=== PATIENT | female | born 1975 | race American Indian/Alaskan Native ===

== ENCOUNTER 2016-05-09 00:05 | Emergency (ER) | payer MEDICAID ==
[2016-05-09 01:09] VITALS: BP 110/74
== END 2016-05-09 02:42 | disposition left against medical advice (07) ==
LOC: ED 00:05
DX: J02.9 Acute pharyngitis, unspecified (principal); Z53.21 Procedure and treatment not carried out due to patient leaving prior to being seen by health care provider

== ENCOUNTER 2018-08-13 01:44 | Inpatient (IN) | payer SELFPAY ==
[2018-08-13 02:24] LABS: Hematocrit 33.4 % (30.3-42.9); Hemoglobin 10.9 gm/dl (10.1-14.3); Mean Corpuscular HGB Conc 33 % (30-34); Mean Corpuscular Volume 90 fl (79-97); Platelet Count 151 K/mm3 (140-440); Red Blood Count 3.71 M/mm3 (3.65-5.03)
[2018-08-13 02:43] LABS: BUN/Creatinine Ratio 17; Blood Urea Nitrogen 10 mg/dL (7-17); Calcium 8.8 mg/dL (8.4-10.2); Hemolysis Index 6
[2018-08-13 03:17] LABS: Bacteria,Urine 1+ /HPF (Negative); Bilirubin,Urine NEG (Negative); Blood,Urine NEG (Negative); Color,Urine Amber (Yellow); Mucus,Urine FEW /HPF
[2018-08-13 03:23] LABS: Amphetamine Screen,Urine PRESUMPTIVE NEGATIVE; Benzodiazepines Screen,Urine PRESUMPTIVE NEGATIVE; Cannabinoid Screen,Urine PRESUMPTIVE NEGATIVE; Methadone Screen,Urine PRESUMPTIVE NEGATIVE; Opiate Screen,Urine PRESUMPTIVE NEGATIVE
[2018-08-13 03:35] LABS: Cocaine Screen,Urine PRESUMPTIVE POSITIVE
[2018-08-13 04:05] LABS: Anisocytosis 1+; Basophils % (Manual) 0 % (0.0-1.8); Hypochromasia 1+; Total Cells Counted 100
--- NOTE | 2018-08-13 04:46 | Emergency Department Report ---
ED Psych HPI - General Chief Complaint: Psych Stated Complaint: MH Time Seen by Provider: 08/13/18 02:08 Source: patient, EMS Mode of arrival: Stretcher - History of Present Illness Initial Comments: Patient is a 42-year-old [place]an female was found at a gas station exhibiting d elusions. Patient was yelling that she just had a miscarriage although the patient did not show any evidence of being . Patient was brought here for evaluation. Patient states to me very disorganized fashion that she was with someone trying to get a ride and transportation. She states the "car would not crank". Patient states that she had a miscarriage earlier today and she also has a 3-month-old at home. Patient does not appear to have had any recent pregnancies. - Related Data Previous Rx's Medication Instructions Recorded Last Taken Type Doxycycline [Vibramycin CAP] 100 mg PO Q12HR #14 capsule 03/31/18 Unknown Rx Ibuprofen [Motrin] 600 mg PO Q8H PRN #20 tablet 03/31/18 Unknown Rx Terbinafine (Nf) [LamiSIL] 250 mg PO QDAY 90 Days tablet 03/31/18 Unknown Rx Allergies Allergy/AdvReac Type Severity Reaction Status Date / Time No Known Allergies Allergy Verified 10/25/15 16:36 ED Review of Systems ROS: Stated complaint: MH Other details as noted in HPI Comment: All other systems reviewed and negative ED Past Medical Hx - Past Medical History Previous Medical History?: Yes Hx Psychiatric Treatment: Yes (Bipolar,schizophrenia,depression) Hx HIV: Yes (on anti-virals) - Surgical History Past Surgical History?: Yes Additional Surgical History: x3. surgery for dislocated shoulder - Social History Smoking Status: Never Smoker - Medications Home Medications: Home Medications Medication Instructions Recorded Confirmed Last Taken Type Doxycycline [Vibramycin CAP] 100 mg PO Q12HR #14 capsule 03/31/18 08/13/18 Unknown Rx Ibuprofen [Motrin] 600 mg PO Q8H PRN #20 tablet 03/31/18 08/13/18 Unknown Rx Terbinafine (Nf) [LamiSIL] 250 mg PO QDAY 90 Days tablet 03/31/18 08/13/18 Unknown Rx ED Physical Exam - General Limitations: Altered Mental Status General appearance: alert, in no apparent distress - Head Head exam: Present: atraumatic, normocephalic - Eye Eye exam: Present: normal appearance, PERRL, EOMI - ENT ENT exam: Present: mucous membranes moist - Neck Neck exam: Present: normal inspection - Respiratory Respiratory exam: Present: normal lung sounds bilaterally, wheezes, rales, rhonchi. Absent: respiratory distress - Cardiovascular Cardiovascular Exam: Present: regular rate, normal rhythm. Absent: systolic murmur, diastolic murmur, rubs, gallop - GI/Abdominal GI/Abdominal exam: Present: soft, normal bowel sounds. Absent: distended, tenderness, guarding, rebound - Extremities Exam Extremities exam: Present: normal inspection - Back Exam Back exam: Present: normal inspection - Neurological Exam Neurological exam: Present: alert, altered - Psychiatric Psychiatric exam: Present: normal affect, normal mood - Skin Skin exam: Present: warm, dry, intact, normal color. Absent: rash ED Course Vital Signs 08/13/18 01:47 Temperature 97.6 F Pulse Rate 86 Respiratory 20 Rate Blood Pressure 118/83 O2 Sat by Pulse 100 Oximetry ED Medical Decision Making - Lab Data Result diagrams: 08/13/18 02:08 08/13/18 02:08 Lab Results 08/13/18 08/13/18 08/13/18 Range/Units 02:08 02:08 02:08 WBC (4.5-11.0) K/mm3 RBC (3.65-5.03) M/mm3 Hgb (10.1-14.3) gm/dl Hct (30.3-42.9) % MCV (79-97) fl MCH (28-32) pg MCHC (30-34) % RDW (13.2-15.2) % Plt Count (140-440) K/mm3 [place] % (Auto) Add Manual Diff Total Counted Seg Neuts % (Manual) (40.0-70.0) % Band Neutrophils % % Lymphocytes % (Manual) (13.4-35.0) % Reactive Lymphs % (Man) % Monocytes % (Manual) (0.0-7.3) % Eosinophils % (Manual) (0.0-4.3) % Basophils % (Manual) (0.0-1.8) % Metamyelocytes % % Myelocytes % % Promyelocytes % % Blast Cells % % Nucleated RBC % Seg Neutrophils # Man (1.8-7.7) K/mm3 Band Neutrophils # K/mm3 Lymphocytes # (Manual) (1.2-5.4) K/mm3 Abs React Lymphs (Man) K/mm3 Monocytes # (Manual) (0.0-0.8) K/mm3 Eosinophils # (Manual) (0.0-0.4) K/mm3 Basophils # (Manual) (0.0-0.1) K/mm3 Metamyelocytes # K/mm3 Myelocytes # K/mm3 Promyelocytes # K/mm3 Blast Cells # K/mm3 WBC Morphology Hypersegmented Neuts Hyposegmented Neuts Hypogranular Neuts Smudge Cells Toxic Granulation Toxic Vacuolation Dohle Bodies Pelger-Huet Anomaly Brenden Rods Platelet Estimate Clumped Platelets Plt Clumps, EDTA Large Platelets Giant Platelets Platelet Satelliting Plt Morphology Comment RBC Morphology Dimorphic RBCs Polychromasia Hypochromasia Poikilocytosis Anisocytosis Microcytosis Macrocytosis Spherocytes Pappenheimer Bodies Sickle Cells Target Cells Tear Drop Cells Ovalocytes Helmet Cells Griffin-Java Bodies [place] Rings [place] Cells Bite Cells Crenated Cell Elliptocytes Acanthocytes (Spur) Rouleaux Hemoglobin C Crystals Schistocytes Malaria parasites Prashant Bodies Hem Pathologist Commnt Sodium 145 (137-145) mmol/L Potassium 3.5 L (3.6-5.0) mmol/L Chloride 109.6 H (98-107) mmol/L Carbon Dioxide 23 (22-30) mmol/L Anion Gap 16 mmol/L BUN 10 (7-17) mg/dL Creatinine 0.6 L (0.7-1.2) mg/dL Estimated GFR > 60 ml/min BUN/Creatinine Ratio 17 % Glucose 78 (65-100) mg/dL Calcium 8.8 (8.4-10.2) mg/dL HCG, Qual (Negative) Urine Color (Yellow) Urine Turbidity (Clear) Urine pH (5.0-7.0) Ur Specific [place] (1.003-1.030) Urine Protein (Negative) mg/dL Urine Glucose (UA) (Negative) mg/dL Urine Ketones (Negative) mg/dL Urine Blood (Negative) Urine Nitrite (Negative) Urine Bilirubin (Negative) Urine Urobilinogen (<2.0) mg/dL Ur Leukocyte Esterase (Negative) Urine WBC (Auto) (0.0-6.0) /HPF Urine RBC (Auto) (0.0-6.0) /HPF U Epithel Cells (Auto) (0-13.0) /HPF Urine Bacteria (Auto) (Negative) /HPF Urine Mucus /HPF Salicylates < 0.3 L (2.8-20.0) mg/dL Urine Opiates Screen Urine Methadone Screen Acetaminophen < 5.0 L (10.0-30.0) ug/mL Ur Barbiturates Screen Ur Phencyclidine Scrn Ur Amphetamines Screen U Benzodiazepines Scrn Urine Cocaine Screen U Marijuana (THC) Screen Drugs of Abuse Note Plasma/Serum Alcohol (0-0.07) % 08/13/18 08/13/18 08/13/18 Range/Units 02:08 02:08 03:00 WBC 2.0 L (4.5-11.0) K/mm3 RBC 3.71 (3.65-5.03) M/mm3 Hgb 10.9 (10.1-14.3) gm/dl Hct 33.4 (30.3-42.9) % MCV 90 (79-97) fl MCH 30 (28-32) pg MCHC 33 (30-34) % RDW 16.0 H (13.2-15.2) % Plt Count 151 (140-440) K/mm3 [place] % (Auto) [employer] Add Manual Diff Complete Total Counted 100 Seg Neuts % (Manual) 63.0 (40.0-70.0) % Band Neutrophils % 1.0 % Lymphocytes % (Manual) 24.0 (13.4-35.0) % Reactive Lymphs % (Man) 0 % Monocytes % (Manual) 9.0 H (0.0-7.3) % Eosinophils % (Manual) 3.0 (0.0-4.3) % Basophils % (Manual) 0 (0.0-1.8) % Metamyelocytes % 0 % Myelocytes % 0 % Promyelocytes % 0 % Blast Cells % 0 % Nucleated RBC % Not Reportable Seg Neutrophils # Man 1.3 L (1.8-7.7) K/mm3 Band Neutrophils # 0.0 K/mm3 Lymphocytes # (Manual) 0.5 L (1.2-5.4) K/mm3 Abs React Lymphs (Man) 0.0 K/mm3 Monocytes # (Manual) 0.2 (0.0-0.8) K/mm3 Eosinophils # (Manual) 0.1 (0.0-0.4) K/mm3 Basophils # (Manual) 0.0 (0.0-0.1) K/mm3 Metamyelocytes # 0.0 K/mm3 Myelocytes # 0.0 K/mm3 Promyelocytes # 0.0 K/mm3 Blast Cells # 0.0 K/mm3 WBC Morphology Not Reportable Hypersegmented Neuts Not Reportable Hyposegmented Neuts Not Reportable Hypogranular Neuts Not Reportable Smudge Cells Not Reportable Toxic Granulation Not Reportable Toxic Vacuolation Not Reportable Dohle Bodies Not Reportable Pelger-Huet Anomaly Not Reportable Brenden Rods Not Reportable Platelet Estimate Appears normal Clumped Platelets Not Reportable Plt Clumps, EDTA Not Reportable Large Platelets Not Reportable Giant Platelets Not Reportable Platelet Satelliting Not Reportable Plt Morphology Comment Not Reportable RBC Morphology Not Reportable Dimorphic RBCs Not Reportable Polychromasia Not Reportable Hypochromasia 1+ Poikilocytosis Not Reportable Anisocytosis 1+ Microcytosis Not Reportable Macrocytosis Not Reportable Spherocytes Not Reportable Pappenheimer Bodies Not Reportable Sickle Cells Not Reportable Target Cells Not Reportable Tear Drop Cells Not Reportable Ovalocytes Not Reportable Helmet Cells Not Reportable Griffin-Java Bodies Not Reportable [place] Rings Not Reportable Jared Cells Not Reportable Bite Cells Not Reportable Crenated Cell Not Reportable Elliptocytes Not Reportable Acanthocytes (Spur) Not Reportable Rouleaux Not Reportable Hemoglobin C Crystals Not Reportable Schistocytes Not Reportable Malaria parasites Not Reportable Prashant Bodies Not Reportable Hem Pathologist Commnt No Sodium (137-145) mmol/L Potassium (3.6-5.0) mmol/L Chloride (98-107) mmol/L Carbon Dioxide (22-30) mmol/L Anion Gap mmol/L BUN (7-17) mg/dL Creatinine (0.7-1.2) mg/dL Estimated GFR ml/min BUN/Creatinine Ratio % Glucose (65-100) mg/dL Calcium (8.4-10.2) mg/dL HCG, Qual (Negative) Urine Color [place] (Yellow) Urine Turbidity Clear (Clear) Urine pH 5.0 (5.0-7.0) Ur Specific [place] 1.039 H (1.003-1.030) Urine Protein 100 mg/dl (Negative) mg/dL Urine Glucose (UA) Neg (Negative) mg/dL Urine Ketones Neg (Negative) mg/dL Urine Blood Neg (Negative) Urine Nitrite Neg (Negative) Urine Bilirubin Neg (Negative) Urine Urobilinogen 4.0 (<2.0) mg/dL Ur Leukocyte Esterase Tr (Negative) Urine WBC (Auto) 9.0 H (0.0-6.0) /HPF Urine RBC (Auto) 7.0 (0.0-6.0) /HPF U Epithel Cells (Auto) 20.0 H (0-13.0) /HPF Urine Bacteria (Auto) 1+ (Negative) /HPF Urine Mucus Few /HPF Salicylates (2.8-20.0) mg/dL Urine Opiates Screen Urine Methadone Screen Acetaminophen (10.0-30.0) ug/mL Ur Barbiturates Screen Ur Phencyclidine Scrn Ur Amphetamines Screen U Benzodiazepines Scrn Urine Cocaine Screen U Marijuana (THC) Screen Drugs of Abuse Note Plasma/Serum Alcohol < 0.01 (0-0.07) % 08/13/18 08/13/18 Range/Units 03:00 04:21 WBC (4.5-11.0) K/mm3 RBC (3.65-5.03) M/mm3 Hgb (10.1-14.3) gm/dl Hct (30.3-42.9) % MCV (79-97) fl MCH (28-32) pg MCHC (30-34) % RDW (13.2-15.2) % Plt Count (140-440) K/mm3 [place] % (Auto) Add Manual Diff Total Counted Seg Neuts % (Manual) (40.0-70.0) % Band Neutrophils % % Lymphocytes % (Manual) (13.4-35.0) % Reactive Lymphs % (Man) % Monocytes % (Manual) (0.0-7.3) % Eosinophils % (Manual) (0.0-4.3) % Basophils % (Manual) (0.0-1.8) % Metamyelocytes % % Myelocytes % % Promyelocytes % % Blast Cells % % Nucleated RBC % Seg Neutrophils # Man (1.8-7.7) K/mm3 Band Neutrophils # K/mm3 Lymphocytes # (Manual) (1.2-5.4) K/mm3 Abs React Lymphs (Man) K/mm3 Monocytes # (Manual) (0.0-0.8) K/mm3 Eosinophils # (Manual) (0.0-0.4) K/mm3 Basophils # (Manual) (0.0-0.1) K/mm3 Metamyelocytes # K/mm3 Myelocytes # K/mm3 Promyelocytes # K/mm3 Blast Cells # K/mm3 WBC Morphology Hypersegmented Neuts Hyposegmented Neuts Hypogranular Neuts Smudge Cells Toxic Granulation Toxic Vacuolation Dohle Bodies Pelger-Huet Anomaly Brenden Rods Platelet Estimate Clumped Platelets Plt Clumps, EDTA Large Platelets Giant Platelets Platelet Satelliting Plt Morphology Comment RBC Morphology Dimorphic RBCs Polychromasia Hypochromasia Poikilocytosis Anisocytosis Microcytosis Macrocytosis Spherocytes Pappenheimer Bodies Sickle Cells Target Cells Tear Drop Cells Ovalocytes Helmet Cells Griffin-Java Bodies [place] Rings Jared Cells Bite Cells Crenated Cell Elliptocytes Acanthocytes (Spur) Rouleaux Hemoglobin C Crystals Schistocytes Malaria parasites Prashant Bodies Hem Pathologist Commnt Sodium (137-145) mmol/L Potassium (3.6-5.0) mmol/L Chloride (98-107) mmol/L Carbon Dioxide (22-30) mmol/L Anion Gap mmol/L BUN (7-17) mg/dL Creatinine (0.7-1.2) mg/dL Estimated GFR ml/min BUN/Creatinine Ratio % Glucose (65-100) mg/dL Calcium (8.4-10.2) mg/dL HCG, Qual Negative (Negative) Urine Color (Yellow) Urine Turbidity (Clear) Urine pH (5.0-7.0) Ur Specific [place] (1.003-1.030) Urine Protein (Negative) mg/dL Urine Glucose (UA) (Negative) mg/dL Urine Ketones (Negative) mg/dL Urine Blood (Negative) Urine Nitrite (Negative) Urine Bilirubin (Negative) Urine Urobilinogen (<2.0) mg/dL Ur Leukocyte Esterase (Negative) Urine WBC (Auto) (0.0-6.0) /HPF Urine RBC (Auto) (0.0-6.0) /HPF U Epithel Cells (Auto) (0-13.0) /HPF Urine Bacteria (Auto) (Negative) /HPF Urine Mucus /HPF Salicylates (2.8-20.0) mg/dL Urine Opiates Screen Presumptive negative Urine Methadone Screen Presumptive negative Acetaminophen (10.0-30.0) ug/mL Ur Barbiturates Screen Presumptive negative Ur Phencyclidine Scrn Presumptive negative Ur Amphetamines Screen Presumptive negative U Benzodiazepines Scrn Presumptive negative Urine Cocaine Screen Presumptive positive U Marijuana (THC) Screen Presumptive negative Drugs of Abuse Note Disclamer Plasma/Serum Alcohol (0-0.07) % - Medical Decision Making Patient's test was negative which rules out her having a miscarriage today. Patient would've had elevation of her beta hCG. Patient is cocaine positive exhibiting delusions. Patient's be evaluated by mental health and will explore options to get her evaluated by a psychiatrist. Critical care attestation.: If time is entered above; I have spent that time in minutes in the direct care of this critically ill patient, excluding procedure time. ED Disposition Clinical Impression: Encounter for psychiatric assessment, Cocaine abuse, Acute psychosis Disposition: [id number]/TX-65 PSY HOSP/PSY UNIT Is pt being admited?: No Does the pt Need Aspirin: No Condition: Stable Time of Disposition: 04:51
[2018-08-13] MEDS ORDERED: K-DUR PO ONE (08:12)
[2018-08-13 08:32] LABS: Hematocrit 31.6 % (30.3-42.9); Hemoglobin 10.4 gm/dl (10.1-14.3); Mean Corpuscular HGB Conc 33 % (30-34); Mean Corpuscular Volume 90 fl (79-97); Platelet Count 145 K/mm3 (140-440); Red Cell Distribution Width 16.1 % (13.2-15.2)
[2018-08-13 08:37] LABS: Eosinophils % (Auto) 0.3 % (0.0-4.3); Monocytes # (Auto) 0.3 K/mm3 (0.0-0.8)
[2018-08-13 08:44] LABS: INR 0.85 (0.87-1.13)
--- NOTE | 2018-08-13 08:53 | Cat Scan Report ---
CT HEAD WITHOUT CONTRAST INDICATION: Altered mental status. COMPARISON: None similar. FINDINGS: Noncontrast head CT demonstrates symmetric, though mild diffuse ventricular enlargement. [id number] periventricular white matter hypodensities also noted, extending into the centrum semiovale. Symmetric, grossly unremarkable sulci. No definite acute infarct, hemorrhage, mass effect or midline shift, to the extent assessed. Normal posterior fossa with preserved basilar cisterns. Normal imaged eye globes. Clear paranasal sinuses and mastoid air cells. Normal calvarium and scalp. CONCLUSION: Mild to moderate symmetric ventricular enlargement and white matter hypodensities, abnormal for the patient's age. Though exact etiology unknown, differential considerations include primarily central atrophy versus an underlying component of hydrocephalus/NPH. Please correlate. Thank you for the opportunity to participate in this patient's care.
[2018-08-13 09:48] LABS: Creatine Kinase MB 4.3 ng/mL (0.0-4.0)
[2018-08-13 09:49] LABS: Alanine Aminotransferase 37 units/L (7-56); Albumin 3.2 g/dL (3.9-5)
[2018-08-13 09:55] LABS: Bilirubin,Direct < 0.2 mg/dL (0-0.2)
--- NOTE | 2018-08-13 10:28 | Emergency Department Report ---
Blank Doc - Documentation Documentation: 22-year-old female with history of HIV AIDS. She was brought to my attention oddly enough for a potassium of 3.5. I reviewed the patient's overall labs and clinical report. It appeared to me that she required more workup considering her medical history and the fact that she had a leukocyte count of 2.0. Therefore I ordered more expanded lab tests. In addition with the patient's alteration of consciousness and HIV, I ordered a CT of her head. Laboratory studies were remarkable for a dropping neutrophil count now with an ANC in the 700s and a total count of 1.5. She has a transaminases level of a hydrated and a magnesium of 1.5. Her CT shows white matter hypodensities and large ventricles. This opens a much wider differential diagnosis this. I spoke to the hospitalist doctor Ana Paula. She agreed that the patient will now require a much more extensive workup. I am in agreement. I will defer this to the hospitalist staff who will be admitting the patient. Diagnostic impressions: HIV/AIDS Alteration of consciousness Psychosis v Acute encephalopathy Hypomagnesemia Elevated transaminases Plan: Further workup and care per hospitalist staff. I am available should they require or request any emergency procedure or assistance.
[2018-08-13] MEDS ORDERED: SODIUM CHLORIDE FLUSH SYRINGE 10 ML IV PRN (11:12)
[2018-08-13] MEDS ORDERED: IBUPROFEN PO PRN (11:12)
[2018-08-13] MEDS ORDERED: MORPHINE IV PRN (11:12)
[2018-08-13] MEDS ORDERED: TYLENOL PO PRN (11:12)
[2018-08-13] MEDS ORDERED: ZOFRAN IV PRN (11:12)
[2018-08-13 11:19] LABS: Basophils % (Manual) 0 % (0.0-1.8); Eosinophils % (Manual) 0 % (0.0-4.3); Total Cells Counted 50
[2018-08-13 11:20] LABS: Anisocytosis 1+; Platelet Estimate Consistent w Auto; Poikilocytosis 1+; Tear Drop Cells Few
[2018-08-13] MEDS ORDERED: ATIVAN IV NR (11:30)
[2018-08-13] MEDS: LOVENOX SUB-Q SCH (12:28)
[2018-08-13] MEDS ORDERED: MAGNESIUM SULFATE 4GM/100ML 4 GM/100 ML BAG IV ONE (12:30)
[2018-08-13] MEDS ORDERED: LOVENOX SUB-Q ONE (12:37)
--- NOTE | 2018-08-13 12:43 | Progress Note ---
Subjective - Reason for Consult Consult date: 08/13/18 Reason for consult: Initial Psychiatric Evaluation Mental Status Exam - Vital signs Last Vital Signs Temp 97.5 F L 08/13/18 08:19 Pulse 100 H 08/13/18 08:19 Resp 18 08/13/18 08:19 BP 108/66 08/13/18 08:19 Pulse Ox 98 08/13/18 08:19
--- NOTE | 2018-08-13 13:31 | Consultation ---
History of Present Illness - Reason for Consult Consult date: 08/13/18 Reason for consult: Initial Psychiatric Evaluation - Chief Complaint Chief complaint: " My right side was hurting" - History of Present Psychiatric Illness Patient is a 42-year-old [place] female was found at a gas station exhibiting delusions. Patient was yelling that she just had a miscarriage although the patient did not show any evidence of being . Patient was brought here for evaluation. Per record patient has a past medical history of HIV. Leukocyte count of 2.0. Laboratory studies were remarkable for a dropping neutrophil count now with an ANC in the 700s and a magnesium of 1.5. Patient has a PPHx of schizophrenia. She states, " I'm here because the right side of my body was aching." Today the patient is cooperative but anxious during the assessment. Although patient denies psychosis, she appears to be internally preoccupied. When asked was she , patient denies. She reports appropriate appetite, energy, and sleep. She denies SI/HI's, A/VH's, and delusions. She later reports " she is in here trying to kill my baby. I'm . They're going to kill you when you leave." Paranoid delusions noted. Current Psychiatric Medications: " I don't know." Past Psychiatric History: schizophrenia ( age 17); multiple inpatient psychiatric evaluation; no outpatient psychiatrist; no suicide attempts per pt. Past Psychiatric Medication Trials: Seroquel- " it worked" and Prozac " it worked". " That's it ma'am." History of Drug/Alcohol Abuse: " I abuse everything." " I last used drugs 2 days ago- crack, liquor, and beer." UDS cocaine. History of Abuse/Trauma: Patient denies sexual, physical, and mental abuse. Social History: Some college-highest level of education; lives with mother in [facility]; no pending legal issues; no source of income; " good" support system (mother, father, grandmother, brother, and children). Family History of psychiatric illness and substance abuse: Patient denies. Medications and Allergies Allergies Allergy/AdvReac Type Severity Reaction Status Date / Time No Known Allergies Allergy Verified 10/25/15 16:36 Home Medications Medication Instructions Recorded Confirmed Last Taken Type Doxycycline [Vibramycin CAP] 100 mg PO Q12HR #14 capsule 03/31/18 08/13/18 Unknown Rx Ibuprofen [Motrin] 600 mg PO Q8H PRN #20 tablet 03/31/18 08/13/18 Unknown Rx Terbinafine (Nf) [LamiSIL] 250 mg PO QDAY 90 Days tablet 03/31/18 08/13/18 Unknown Rx Active Meds: Active Medications Acetaminophen (Tylenol) 650 mg PO Q4H PRN PRN Reason: Pain MILD(1-3)/Fever >100.5/CORRAL Docusate Sodium (Colace) 100 mg PO BID ANISA Enoxaparin Sodium (Lovenox) 40 mg SUB-Q QDAY ANISA Stop: 08/14/18 10:01 Last Admin: 08/13/18 12:28 Dose: 40 mg Documented by: Magnesium Sulfate (Magnesium Sulfate 4gm/100ml) 4 gm in 100 mls @ 25 mls/hr IV ONCE ONE Stop: 08/13/18 16:29 Ibuprofen (Motrin) 600 mg PO Q6H PRN PRN Reason: Pain, Mild (1-3) Lorazepam (Ativan) 2 mg IV CARPENTER MOLD NR Stop: 08/13/18 23:59 Morphine Sulfate (Morphine) 2 mg IV Q4H PRN PRN Reason: Pain, Moderate (4-6) Stop: 08/14/18 23:59 Ondansetron HCl (Zofran) 4 mg IV Q8H PRN PRN Reason: Nausea And Vomiting Sodium Chloride (Sodium Chloride Flush Syringe 10 Ml) 10 ml IV BID [facility] Sodium Chloride (Sodium Chloride Flush Syringe 10 Ml) 10 ml IV PRN PRN PRN Reason: LINE FLUSH Mental Status Exam - Vital signs Last Vital Signs Temp 97.5 F L 08/13/18 08:19 Pulse 100 H 08/13/18 08:19 Resp 18 08/13/18 08:19 BP 108/66 08/13/18 08:19 Pulse Ox 98 08/13/18 08:19 - Exam Narrative exam: Mental Status Exam Appearance: in hospital scrubs, poorly groomed Behavior: poor eye contact Speech: rapid rate and regular tone Mood: "I'm content " ; anxious/labile Affect: congruent to mood Thought Process: disorganized, loose associations, impoverished Thought Content: Denies SI/HI's, A/VH's, and delusions; + internally preoccupied, paranoid. Motor Activity: laying in bed. Cognition: A/O x 3 Insight: poor Judgment: poor Results Result Diagrams: 08/13/18 08:18 08/13/18 02:08 Abnormal lab results 08/13/18 08/13/18 08/13/18 Range/Units 02:08 02:08 02:08 WBC (4.5-11.0) K/mm3 RBC (3.65-5.03) M/mm3 RDW (13.2-15.2) % Monocytes % (Manual) (0.0-7.3) % Seg Neutrophils # (1.8-7.7) K/mm3 Seg Neutrophils # Man (1.8-7.7) K/mm3 Lymphocytes # (Manual) (1.2-5.4) K/mm3 PT (12.2-14.9) Sec. INR (0.87-1.13) Potassium 3.5 L (3.6-5.0) mmol/L Chloride 109.6 H (98-107) mmol/L Creatinine 0.6 L (0.7-1.2) mg/dL Lactic Acid (0.7-2.0) mmol/L Magnesium (1.7-2.3) mg/dL AST (5-40) units/L Alkaline Phosphatase (35-129) units/L CK-MB (CK-2) (0.0-4.0) ng/mL CK-MB (CK-2) Rel Index (0-4) Albumin (3.9-5) g/dL Ur Specific [place] (1.003-1.030) Urine WBC (Auto) (0.0-6.0) /HPF U Epithel Cells (Auto) (0-13.0) /HPF Salicylates < 0.3 L (2.8-20.0) mg/dL Acetaminophen < 5.0 L (10.0-30.0) ug/mL 08/13/18 08/13/18 08/13/18 Range/Units 02:08 03:00 08:18 WBC 2.0 L (4.5-11.0) K/mm3 RBC (3.65-5.03) M/mm3 RDW 16.0 H (13.2-15.2) % Monocytes % (Manual) 9.0 H (0.0-7.3) % Seg Neutrophils # (1.8-7.7) K/mm3 Seg Neutrophils # Man 1.3 L (1.8-7.7) K/mm3 Lymphocytes # (Manual) 0.5 L (1.2-5.4) K/mm3 PT 12.1 L (12.2-14.9) Sec. INR 0.85 L (0.87-1.13) Potassium (3.6-5.0) mmol/L Chloride (98-107) mmol/L Creatinine (0.7-1.2) mg/dL Lactic Acid (0.7-2.0) mmol/L Magnesium (1.7-2.3) mg/dL AST (5-40) units/L Alkaline Phosphatase (35-129) units/L CK-MB (CK-2) (0.0-4.0) ng/mL CK-MB (CK-2) Rel Index (0-4) Albumin (3.9-5) g/dL Ur Specific [place] 1.039 H (1.003-1.030) Urine WBC (Auto) 9.0 H (0.0-6.0) /HPF U Epithel Cells (Auto) 20.0 H (0-13.0) /HPF Salicylates (2.8-20.0) mg/dL Acetaminophen (10.0-30.0) ug/mL 08/13/18 08/13/18 08/13/18 Range/Units 08:18 08:18 08:18 WBC 1.5 L* (4.5-11.0) K/mm3 RBC 3.50 L (3.65-5.03) M/mm3 RDW 16.1 H (13.2-15.2) % Monocytes % (Manual) 12.0 H (0.0-7.3) % Seg Neutrophils # 0.7 L (1.8-7.7) K/mm3 Seg Neutrophils # Man 1.1 L (1.8-7.7) K/mm3 Lymphocytes # (Manual) 0.3 L (1.2-5.4) K/mm3 PT (12.2-14.9) Sec. INR (0.87-1.13) Potassium (3.6-5.0) mmol/L Chloride (98-107) mmol/L Creatinine (0.7-1.2) mg/dL Lactic Acid 0.60 L (0.7-2.0) mmol/L Magnesium 1.50 L (1.7-2.3) mg/dL AST 101 H (5-40) units/L Alkaline Phosphatase 139 H (35-129) units/L CK-MB (CK-2) 4.3 H (0.0-4.0) ng/mL CK-MB (CK-2) Rel Index 4.8 H (0-4) Albumin 3.2 L (3.9-5) g/dL Ur Specific [place] (1.003-1.030) Urine WBC (Auto) (0.0-6.0) /HPF U Epithel Cells (Auto) (0-13.0) /HPF Salicylates (2.8-20.0) mg/dL Acetaminophen (10.0-30.0) ug/mL All other labs normal. Assessment and Plan Assessment and plan: Impression: PPHx schizophrenia. Psychosis Unspecified. Today the patient is cooperative but anxious during the assessment. Patient mood is labile with perceptual disturbances and paranoid delusions. Thought process is disorganized. UDS is positive for cocaine. Recommendation/Plan: 1. Continue 1013. Will reassess in 24 hours. 2. Start Seroquel 50mg po QHS mood/psychosis. Discussed metabolic side effects. Patient verbalizes understanding. 3. Will attempt to gain collateral. Disposition: Will refer patient to inpatient psychiatric services once patient is medically cleared. Will staff with Dr. Natty Menjivar.
--- NOTE | 2018-08-13 14:08 | Magnetic Resonance Report ---
MRI BRAIN WITHOUT CONTRAST: 08/13/18 11:13:00 CLINICAL: Altered mental status. TECHNIQUE: Axial diffusion, T1, T2, gradient echo T2*, coronal and axial FLAIR and sagittal T1 sequences on a 1.5 Evelyn magnet. FINDINGS: The ventricles and sulci are diffusely large for age but the ventricular enlargement is disproportionate compared to the sulcal enlargement. No restricted diffusion. Extensive bilateral periventricular deep white matter hyperintensity on FLAIR and T2. No mass or mass effect. No hemorrhage, edema or extra-axial collection. No chronic microbleeds and gradient echo sequence. Normal pituitary and optic chiasm. The brainstem is small. Normal cerebellum . Intact vascular flow voids. Normal sinuses. The orbits, and soft tissues are normal. Normal calvarium and skull base. IMPRESSION: Global cortical atrophy and disproportionate ventriculomegaly suggesting normal pressure hydrocephalus. Extensive chronic white matter disease of uncertain etiology. No evidence of acute/subacute infarct or hemorrhage.
--- NOTE | 2018-08-13 14:29 | Consultation ---
History of Present Illness - Reason for Consult Consult date: 08/13/18 - History of Present Illness 22 y/o female with history of HIV AIDS In the ED, temp 99.1, HR 81, R 19, O2 sat 98%, BP 139/61. WBC 6.9, Hg 9.3, Plat 111. Creat 5.1. Glucose 70. LFTs normal. CK 233. Lactate 1.6. UA 20 wbc, trace LE. Blood culture 06/27/2018 no growth today. Urine culture 06/27/2018 <10K mixed colonies. XR knee neg. CXR showed no acute cardiopulmonary process. Renal US showed increased renal parenchima echogenecity. CT head no acute intracraneal processes. Review of Systems: General: no fever, chills, nightsweats, unintentional weight change, or change in appetite Cutaneous: no rash, pruritus Head: no headaches or injury Eyes: no changes in vision, eye pain, double vision Ears: no ear pain, ear discharge, ringing or hearing loss Nose: no nose bleeding, stuffiness Mouth & throat: no bleeding gums, no horseness, no dental problems, or swollen glands Neck: no pain, node enlargement/lumps, tyroid enlargement or tenderness Respiratory: no cough, wheezing, sputum, hemoptysis, pleuritic chest pain Cardiovascular: no chest pain, leg edema, cyanosis, SINHA, orthopnea Musculoskeletal: no decreased joint motion, bone or joint pain, joint swelling, muscle aches Gastrointestinal: no nausea, vomiting, hematemesis, diarrhea, constipation, melena, bright red blood in stools, fecal incontinence, jaundice Genitourinary/Reproductive: no frequent urination, dysuria, hematuria, incontinence Neurogical: no seizures, no headaches, no weakness, no paresthesias, no loss of speech or vision; no memory loss, no vertigo, no tremors, no numbness Psychiatric: stable mood; no excessive anxiety, sadness or moodiness Medications and Allergies Allergies Allergy/AdvReac Type Severity Reaction Status Date / Time No Known Allergies Allergy Verified 10/25/15 16:36 Home Medications Medication Instructions Recorded Confirmed Last Taken Type Doxycycline [Vibramycin CAP] 100 mg PO Q12HR #14 capsule 03/31/18 08/13/18 Unknown Rx Ibuprofen [Motrin] 600 mg PO Q8H PRN #20 tablet 03/31/18 08/13/18 Unknown Rx Terbinafine (Nf) [LamiSIL] 250 mg PO QDAY 90 Days tablet 03/31/18 08/13/18 Unknown Rx Active Meds: Active Medications Acetaminophen (Tylenol) 650 mg PO Q4H PRN PRN Reason: Pain MILD(1-3)/Fever >100.5/CORRAL Docusate Sodium (Colace) 100 mg PO BID ANISA Enoxaparin Sodium (Lovenox) 40 mg SUB-Q QDAY ANISA Stop: 08/14/18 10:01 Last Admin: 08/13/18 12:28 Dose: 40 mg Documented by: Magnesium Sulfate (Magnesium Sulfate 4gm/100ml) 4 gm in 100 mls @ 25 mls/hr IV ONCE ONE Stop: 08/13/18 16:29 Ibuprofen (Motrin) 600 mg PO Q6H PRN PRN Reason: Pain, Mild (1-3) Lorazepam (Ativan) 2 mg IV RADIO ARTIST NR Stop: 08/13/18 23:59 Morphine Sulfate (Morphine) 2 mg IV Q4H PRN PRN Reason: Pain, Moderate (4-6) Stop: 08/14/18 23:59 Ondansetron HCl (Zofran) 4 mg IV Q8H PRN PRN Reason: Nausea And Vomiting Sodium Chloride (Sodium Chloride Flush Syringe 10 Ml) 10 ml IV BID [facility] Sodium Chloride (Sodium Chloride Flush Syringe 10 Ml) 10 ml IV PRN PRN PRN Reason: LINE FLUSH Physical Examination - Physical Exam Narrative exam: General appearance: Alert in NAD, conversant Eyes: anicteric sclerae, moist conjunctivae; no lid-lag; PERRLA HENT: Atraumatic; oropharynx clear with moist mucous membranes and no mucosal ulcerations/no oral thrush; normal hard and soft palate. Normal external ears. Neck: Trachea midline; supple, no thyromegaly or lymphadenopathy Lungs: CTA, with normal respiratory effort and no intercostal retractions CV: RRR, no murmurs Abdomen: Soft, non-tender; no masses or hepatosplenomegaly Extremities: No peripheral edema or extremity lymphadenopathy Skin: Normal temperature, turgor and texture; no rash, ulcers or subcutaneous nodules Psych: Appropriate affect, alert and oriented to person, place and time. Neuro: alert and oriented x 3. Moving all extermities - Constitutional Vitals: Vital Signs Temp Pulse Resp BP Pulse Ox 97.5 F L 100 H 18 108/66 98 08/13/18 08:19 08/13/18 08:19 08/13/18 08:19 08/13/18 08:19 08/13/18 08:19 Temperature -Last 24 Hours Temperature 97.5 F Temperature 97.6 F Results - Labs CBC & Chem 7: 08/13/18 08:18 08/13/18 02:08 Labs: Abnormal lab results 08/13/18 08/13/18 08/13/18 Range/Units 02:08 02:08 02:08 WBC (4.5-11.0) K/mm3 RBC (3.65-5.03) M/mm3 RDW (13.2-15.2) % Monocytes % (Manual) (0.0-7.3) % Seg Neutrophils # (1.8-7.7) K/mm3 Seg Neutrophils # Man (1.8-7.7) K/mm3 Lymphocytes # (Manual) (1.2-5.4) K/mm3 PT (12.2-14.9) Sec. INR (0.87-1.13) Potassium 3.5 L (3.6-5.0) mmol/L Chloride 109.6 H (98-107) mmol/L Creatinine 0.6 L (0.7-1.2) mg/dL Lactic Acid (0.7-2.0) mmol/L Magnesium (1.7-2.3) mg/dL AST (5-40) units/L Alkaline Phosphatase (35-129) units/L CK-MB (CK-2) (0.0-4.0) ng/mL CK-MB (CK-2) Rel Index (0-4) Albumin (3.9-5) g/dL Ur Specific [place] (1.003-1.030) Urine WBC (Auto) (0.0-6.0) /HPF U Epithel Cells (Auto) (0-13.0) /HPF Salicylates < 0.3 L (2.8-20.0) mg/dL Acetaminophen < 5.0 L (10.0-30.0) ug/mL 08/13/18 08/13/18 08/13/18 Range/Units 02:08 03:00 08:18 WBC 2.0 L (4.5-11.0) K/mm3 RBC (3.65-5.03) M/mm3 RDW 16.0 H (13.2-15.2) % Monocytes % (Manual) 9.0 H (0.0-7.3) % Seg Neutrophils # (1.8-7.7) K/mm3 Seg Neutrophils # Man 1.3 L (1.8-7.7) K/mm3 Lymphocytes # (Manual) 0.5 L (1.2-5.4) K/mm3 PT 12.1 L (12.2-14.9) Sec. INR 0.85 L (0.87-1.13) Potassium (3.6-5.0) mmol/L Chloride (98-107) mmol/L Creatinine (0.7-1.2) mg/dL Lactic Acid (0.7-2.0) mmol/L Magnesium (1.7-2.3) mg/dL AST (5-40) units/L Alkaline Phosphatase (35-129) units/L CK-MB (CK-2) (0.0-4.0) ng/mL CK-MB (CK-2) Rel Index (0-4) Albumin (3.9-5) g/dL Ur Specific [place] 1.039 H (1.003-1.030) Urine WBC (Auto) 9.0 H (0.0-6.0) /HPF U Epithel Cells (Auto) 20.0 H (0-13.0) /HPF Salicylates (2.8-20.0) mg/dL Acetaminophen (10.0-30.0) ug/mL 08/13/18 08/13/18 08/13/18 Range/Units 08:18 08:18 08:18 WBC 1.5 L* (4.5-11.0) K/mm3 RBC 3.50 L (3.65-5.03) M/mm3 RDW 16.1 H (13.2-15.2) % Monocytes % (Manual) 12.0 H (0.0-7.3) % Seg Neutrophils # 0.7 L (1.8-7.7) K/mm3 Seg Neutrophils # Man 1.1 L (1.8-7.7) K/mm3 Lymphocytes # (Manual) 0.3 L (1.2-5.4) K/mm3 PT (12.2-14.9) Sec. INR (0.87-1.13) Potassium (3.6-5.0) mmol/L Chloride (98-107) mmol/L Creatinine (0.7-1.2) mg/dL Lactic Acid 0.60 L (0.7-2.0) mmol/L Magnesium 1.50 L (1.7-2.3) mg/dL AST 101 H (5-40) units/L Alkaline Phosphatase 139 H (35-129) units/L CK-MB (CK-2) 4.3 H (0.0-4.0) ng/mL CK-MB (CK-2) Rel Index 4.8 H (0-4) Albumin 3.2 L (3.9-5) g/dL Ur Specific [place] (1.003-1.030) Urine WBC (Auto) (0.0-6.0) /HPF U Epithel Cells (Auto) (0-13.0) /HPF Salicylates (2.8-20.0) mg/dL Acetaminophen (10.0-30.0) ug/mL Assessment and Plan Cultures: Blood culture Urine culture Sputum culture Assessment: 1) Sepsis: Present on admission, manifested by fever, tachycardia, hypotension, leukocytosis, bandemia, increased lactate. Etiology most likely. Recommendations: - follow-up blood cultures, urine culture Will follow. Tomeka Jordan MD Infectious Diseases Plasma Table Operator [facility] M [phone] O [phone]
--- NOTE | 2018-08-13 15:40 | History and Physical Report ---
<TYLER DAVIS - Last Filed: 08/13/18 16:03> History of Present Illness Date of examination: 08/13/18 Date of admission: 08/13/18 11:13 Chief complaint: Acute Psychosis History of present illness: 42 -year-old -[place] female with HIV who was last CD4 count was 4, noncompliant with antiretroviral medications, and an extensive psychiatric history who 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 She was treated at [facility] in March 2018 for cellulitis of toe. Patient was found to be neutropenic with WBC 1.5. CT head was performed which resulted mild to moderate ventricular enlargement and white matter hypodensities. Toxicology was positive for cocaine. Past History Past Medical History: HIV/AIDS Past Surgical History: No surgical history Social history: no significant social history Family history: no significant family history Medications and Allergies Allergies Allergy/AdvReac Type Severity Reaction Status Date / Time No Known Allergies Allergy Verified 10/25/15 16:36 Home Medications Medication Instructions Recorded Confirmed Last Taken Type Doxycycline [Vibramycin CAP] 100 mg PO Q12HR #14 capsule 03/31/18 08/13/18 Unknown Rx Ibuprofen [Motrin] 600 mg PO Q8H PRN #20 tablet 03/31/18 08/13/18 Unknown Rx Terbinafine (Nf) [LamiSIL] 250 mg PO QDAY 90 Days tablet 03/31/18 08/13/18 Unknown Rx Active Meds: Active Medications Acetaminophen (Tylenol) 650 mg PO Q4H PRN PRN Reason: Pain MILD(1-3)/Fever >100.5/CORRAL Docusate Sodium (Colace) 100 mg PO BID ANISA Enoxaparin Sodium (Lovenox) 40 mg SUB-Q QDAY ANISA Stop: 08/14/18 10:01 Last Admin: 08/13/18 12:28 Dose: 40 mg Documented by: Magnesium Sulfate (Magnesium Sulfate 4gm/100ml) 4 gm in 100 mls @ 25 mls/hr IV ONCE ONE Stop: 08/13/18 16:29 Last Admin: 08/13/18 14:38 Dose: 25 mls/hr Documented by: Ibuprofen (Motrin) 600 mg PO Q6H PRN PRN Reason: Pain, Mild (1-3) Lorazepam (Ativan) 2 mg IV PRODUCTION SHIFT SUPERVISOR NR Stop: 08/13/18 23:59 Morphine Sulfate (Morphine) 2 mg IV Q4H PRN PRN Reason: Pain, Moderate (4-6) Stop: 08/14/18 23:59 Ondansetron HCl (Zofran) 4 mg IV Q8H PRN PRN Reason: Nausea And Vomiting Sodium Chloride (Sodium Chloride Flush Syringe 10 Ml) 10 ml IV BID ANISA Sodium Chloride (Sodium Chloride Flush Syringe 10 Ml) 10 ml IV PRN PRN PRN Reason: LINE FLUSH Review of Systems Constitutional: weight loss, poor appetite Ears, nose, mouth and throat: no ear pain, no ear discharge, no tinnitis Breasts: no deferred Cardiovascular: no chest pain, no palpitations, no dyspnea on exertion Respiratory: no cough, no cough with sputum, no excessive sputum Gastrointestinal: no abdominal pain, no nausea, no vomiting, no diarrhea Genitourinary Female: no dyspareunia, no dysmenorrhea, no urgency, no vaginal itching, no vaginal discharge Menstruation: no period normal Rectal: no pain, no incontinence Integumentary: no rash, no pruritis, no redness, no sores Neurological: no head injury, no weakness, no seizures Psychiatric: no anxiety, no memory loss, no change in sleep habits, no suicidal ideation Endocrine: no cold intolerance, no heat intolerance, no polydipsia, no polyuria, no nocturia Allergic/Immunologic: no allergic rhinitis, no wheezing Exam - Constitutional Vitals: Temp Pulse Resp BP Pulse Ox 97.5 F L 100 H 18 108/66 98 08/13/18 08:19 08/13/18 08:19 08/13/18 08:19 08/13/18 08:19 08/13/18 08:19 General appearance: Present: disheveled - EENT Eyes: Present: PERRL, EOM intact ENT: hearing intact, poor dentition - Neck Neck: Present: supple, normal ROM - Respiratory Respiratory effort: normal - Cardiovascular Rhythm: regular Heart Sounds: Present: S1 & S2 - Extremities Extremities: no ischemia Peripheral Pulses: within normal limits - Abdominal General gastrointestinal: Present: soft, non-tender, normal bowel sounds Female genitourinary: Present: deferred - Rectal Rectal Exam: deferred - Integumentary Integumentary: Present: warm, dry - Musculoskeletal Musculoskeletal: strength equal bilaterally - Psychiatric Psychiatric: cooperative, agitated - Neurologic Neurologic: moves all extremities Results - Labs CBC & Chem 7: 08/13/18 08:18 08/13/18 02:08 Labs: Laboratory Last Values WBC 1.5 K/mm3 (4.5-11.0) L* 08/13/18 08:18 RBC 3.50 M/mm3 (3.65-5.03) L 08/13/18 08:18 Hgb 10.4 gm/dl (10.1-14.3) 08/13/18 08:18 Hct 31.6 % (30.3-42.9) 08/13/18 08:18 MCV 90 fl (79-97) 08/13/18 08:18 MCH 30 pg (28-32) 08/13/18 08:18 MCHC 33 % (30-34) 08/13/18 08:18 RDW 16.1 % (13.2-15.2) H 08/13/18 08:18 Plt Count 145 K/mm3 (140-440) 08/13/18 08:18 [place] % (Auto) Janitor Supervisor 08/13/18 08:18 Eos % (Auto) 0.3 % (0.0-4.3) 08/13/18 08:18 [place] # 0.3 K/mm3 (0.0-0.8) 08/13/18 08:18 Eos # 0.0 K/mm3 (0.0-0.4) 08/13/18 08:18 Baso # 0.0 K/mm3 (0.0-0.1) 08/13/18 08:18 Add Manual Diff Complete 08/13/18 08:18 Total Counted 50 08/13/18 08:18 Seg Neutrophils % 48.2 % (40.0-70.0) 08/13/18 08:18 Seg Neuts % (Manual) 70.0 % (40.0-70.0) 08/13/18 08:18 Band Neutrophils % 0 % 08/13/18 08:18 Lymphocytes % (Manual) 18.0 % (13.4-35.0) 08/13/18 08:18 Reactive Lymphs % (Man) 0 % 08/13/18 08:18 Monocytes % (Manual) 12.0 % (0.0-7.3) H 08/13/18 08:18 Eosinophils % (Manual) 0 % (0.0-4.3) 08/13/18 08:18 Basophils % (Manual) 0 % (0.0-1.8) 08/13/18 08:18 Metamyelocytes % 0 % 08/13/18 08:18 Myelocytes % 0 % 08/13/18 08:18 Promyelocytes % 0 % 08/13/18 08:18 Blast Cells % 0 % 08/13/18 08:18 Nucleated RBC % Not Reportable 08/13/18 08:18 Seg Neutrophils # 0.7 K/mm3 (1.8-7.7) L 08/13/18 08:18 Seg Neutrophils # Man 1.1 K/mm3 (1.8-7.7) L 08/13/18 08:18 Band Neutrophils # 0.0 K/mm3 08/13/18 08:18 Lymphocytes # (Manual) 0.3 K/mm3 (1.2-5.4) L 08/13/18 08:18 Abs React Lymphs (Man) 0.0 K/mm3 08/13/18 08:18 Monocytes # (Manual) 0.2 K/mm3 (0.0-0.8) 08/13/18 08:18 Eosinophils # (Manual) 0.0 K/mm3 (0.0-0.4) 08/13/18 08:18 Basophils # (Manual) 0.0 K/mm3 (0.0-0.1) 08/13/18 08:18 Metamyelocytes # 0.0 K/mm3 08/13/18 08:18 Myelocytes # 0.0 K/mm3 08/13/18 08:18 Promyelocytes # 0.0 K/mm3 08/13/18 08:18 Blast Cells # 0.0 K/mm3 08/13/18 08:18 WBC Morphology Not Reportable 08/13/18 08:18 Hypersegmented Neuts Not Reportable 08/13/18 08:18 Hyposegmented Neuts Not Reportable 08/13/18 08:18 Hypogranular Neuts Not Reportable 08/13/18 08:18 Smudge Cells Not Reportable 08/13/18 08:18 Toxic Granulation Not Reportable 08/13/18 08:18 Toxic Vacuolation Not Reportable 08/13/18 08:18 Dohle Bodies Not Reportable 08/13/18 08:18 Pelger-Huet Anomaly Not Reportable 08/13/18 08:18 Brenden Rods Not Reportable 08/13/18 08:18 Platelet Estimate Consistent w auto 08/13/18 08:18 Clumped Platelets Not Reportable 08/13/18 08:18 Plt Clumps, EDTA Not Reportable 08/13/18 08:18 Large Platelets Not Reportable 08/13/18 08:18 Giant Platelets Not Reportable 08/13/18 08:18 Platelet Satelliting Not Reportable 08/13/18 08:18 Plt Morphology Comment Not Reportable 08/13/18 08:18 RBC Morphology Not Reportable 08/13/18 08:18 Dimorphic RBCs Not Reportable 08/13/18 08:18 Polychromasia Not Reportable 08/13/18 08:18 Hypochromasia Not Reportable 08/13/18 08:18 Poikilocytosis 1+ 08/13/18 08:18 Anisocytosis 1+ 08/13/18 08:18 Microcytosis Not Reportable 08/13/18 08:18 Macrocytosis Not Reportable 08/13/18 08:18 Spherocytes Not Reportable 08/13/18 08:18 Pappenheimer Bodies Not Reportable 08/13/18 08:18 Sickle Cells Not Reportable 08/13/18 08:18 Target Cells Not Reportable 08/13/18 08:18 Tear Drop Cells Few 08/13/18 08:18 Ovalocytes Not Reportable 08/13/18 08:18 Helmet Cells Not Reportable 08/13/18 08:18 [place] Bodies Not Reportable 08/13/18 08:18 [place] Rings Not Reportable 08/13/18 08:18 [place] Cells Not Reportable 08/13/18 08:18 Bite Cells Not Reportable 08/13/18 08:18 Crenated Cell Not Reportable 08/13/18 08:18 Elliptocytes Few 08/13/18 08:18 Acanthocytes (Spur) Not Reportable 08/13/18 08:18 Rouleaux Not Reportable 08/13/18 08:18 Hemoglobin C Crystals Not Reportable 08/13/18 08:18 Schistocytes Not Reportable 08/13/18 08:18 Malaria parasites Not Reportable 08/13/18 08:18 Prashant Bodies Not Reportable 08/13/18 08:18 Hem Pathologist Commnt No 08/13/18 08:18 PT 12.1 Sec. (12.2-14.9) L 08/13/18 08:18 INR 0.85 (0.87-1.13) L 08/13/18 08:18 APTT 33.0 Sec. (24.2-36.6) 08/13/18 08:18 Sodium 145 mmol/L (137-145) 08/13/18 02:08 Potassium 3.5 mmol/L (3.6-5.0) L 08/13/18 02:08 Chloride 109.6 mmol/L (98-107) H 08/13/18 02:08 Carbon Dioxide 23 mmol/L (22-30) 08/13/18 02:08 Anion Gap 16 mmol/L 08/13/18 02:08 BUN 10 mg/dL (7-17) 08/13/18 02:08 Creatinine 0.6 mg/dL (0.7-1.2) L 08/13/18 02:08 Estimated GFR > 60 ml/min 08/13/18 02:08 BUN/Creatinine Ratio 17 % 08/13/18 02:08 Glucose 78 mg/dL (65-100) 08/13/18 02:08 Lactic Acid 0.60 mmol/L (0.7-2.0) L 08/13/18 08:18 Calcium 8.8 mg/dL (8.4-10.2) 08/13/18 02:08 Magnesium 1.50 mg/dL (1.7-2.3) L 08/13/18 08:18 Total Bilirubin 0.30 mg/dL (0.1-1.2) 08/13/18 08:18 Direct Bilirubin < 0.2 mg/dL (0-0.2) 08/13/18 08:18 Indirect Bilirubin 0.1 mg/dL 08/13/18 08:18 AST 101 units/L (5-40) H 08/13/18 08:18 ALT 37 units/L (7-56) 08/13/18 08:18 Alkaline Phosphatase 139 units/L (35-129) H 08/13/18 08:18 Total Creatine Kinase 89 units/L (30-135) 08/13/18 08:18 CK-MB (CK-2) 4.3 ng/mL (0.0-4.0) H 08/13/18 08:18 CK-MB (CK-2) Rel Index 4.8 (0-4) H 08/13/18 08:18 Total Protein 7.2 g/dL (6.3-8.2) 08/13/18 08:18 Albumin 3.2 g/dL (3.9-5) L 08/13/18 08:18 Albumin/Globulin Ratio 0.8 % 08/13/18 08:18 HCG, Qual Negative (Negative) 08/13/18 04:21 Urine Color [place] (Yellow) 08/13/18 03:00 Urine Turbidity Clear (Clear) 08/13/18 03:00 Urine pH 5.0 (5.0-7.0) 08/13/18 03:00 Ur Specific [place] 1.039 (1.003-1.030) H 08/13/18 03:00 Urine Protein 100 mg/dl mg/dL (Negative) 08/13/18 03:00 Urine Glucose (UA) Neg mg/dL (Negative) 08/13/18 03:00 Urine Ketones Neg mg/dL (Negative) 08/13/18 03:00 Urine Blood Neg (Negative) 08/13/18 03:00 Urine Nitrite Neg (Negative) 08/13/18 03:00 Urine Bilirubin Neg (Negative) 08/13/18 03:00 Urine Urobilinogen 4.0 mg/dL (<2.0) 08/13/18 03:00 Ur Leukocyte Esterase Tr (Negative) 08/13/18 03:00 Urine WBC (Auto) 9.0 /HPF (0.0-6.0) H 08/13/18 03:00 Urine RBC (Auto) 7.0 /HPF (0.0-6.0) 08/13/18 03:00 U Epithel Cells (Auto) 20.0 /HPF (0-13.0) H 08/13/18 03:00 Urine Bacteria (Auto) 1+ /HPF (Negative) 08/13/18 03:00 Urine Mucus Few /HPF 08/13/18 03:00 Salicylates < 0.3 mg/dL (2.8-20.0) L 08/13/18 02:08 Urine Opiates Screen Presumptive negative 08/13/18 03:00 Urine Methadone Screen Presumptive negative 08/13/18 03:00 Acetaminophen < 5.0 ug/mL (10.0-30.0) L 08/13/18 02:08 Ur Barbiturates Screen Presumptive negative 08/13/18 03:00 Ur Phencyclidine Scrn Presumptive negative 08/13/18 03:00 Ur Amphetamines Screen Presumptive negative 08/13/18 03:00 U Benzodiazepines Scrn Presumptive negative 08/13/18 03:00 Urine Cocaine Screen Presumptive positive 08/13/18 03:00 U Marijuana (THC) Screen Presumptive negative 08/13/18 03:00 Drugs of Abuse Note Disclamer 08/13/18 03:00 Plasma/Serum Alcohol < 0.01 % (0-0.07) 08/13/18 02:08 Assessment and Plan Assessment and plan: 42 -year-old -[place] female with HIV who was last CD4 count was 4, noncompliant with antiretroviral medications, and an extensive psychiatric history who 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 She was treated at [facility] ED in March 2018 for cellulitis of toe. Patient was found to be neutropenic with WBC 1.5. Toxicology was positive for cocaine. Suspicion of sepsis Non-adherence to antiretrovirals Cocaine intoxication and abuse Acute Psychosis Abnormal CT Head HIV/AIDS Neutropenia Hx Schizophrenia Hx Psychosis Plan: Blood and urine cultures pending Today's CT Head showed mild to moderate symmetric ventricular enlargement and white matter hypodensities, abnormal for patient of this age Today's MRI brain showed global cortical atrophy disproportionate ventricular megaly suggesting normal pressure hydrocephalus. Extensive chronic white matter disease of uncertain etiology. Labs pending: CD4, HIV viral load On Seroquel ID Consulted Mental health consulted DVT PPX on Lovenox Advance Directives: No VTE prophylaxis?: Chemical <CLAUDETTE NESBITT - Last Filed: 08/13/18 23:27> History of Present Illness Date of admission: 08/13/18 11:13 Medications and Allergies Active Meds: Active Medications Acetaminophen (Tylenol) 650 mg PO Q4H PRN PRN Reason: Pain MILD(1-3)/Fever >100.5/CORRAL Docusate Sodium (Colace) 100 mg PO BID ANISA Enoxaparin Sodium (Lovenox) 40 mg SUB-Q QDAY ANISA Stop: 08/14/18 10:01 Last Admin: 08/13/18 12:28 Dose: 40 mg Documented by: Ibuprofen (Motrin) 600 mg PO Q6H PRN PRN Reason: Pain, Mild (1-3) Lorazepam (Ativan) 2 mg IV PRODUCTION SHIFT SUPERVISOR NR Stop: 08/13/18 23:59 Morphine Sulfate (Morphine) 2 mg IV Q4H PRN PRN Reason: Pain, Moderate (4-6) Stop: 08/14/18 23:59 Olanzapine (Zyprexa Zydis) 5 mg PO Q6H PRN PRN Reason: Agitation Ondansetron HCl (Zofran) 4 mg IV Q8H PRN PRN Reason: Nausea And Vomiting Quetiapine Fumarate (Seroquel) 50 mg PO QHS ANISA Sodium Chloride (Sodium Chloride Flush Syringe 10 Ml) 10 ml IV BID ANISA Sodium Chloride (Sodium Chloride Flush Syringe 10 Ml) 10 ml IV PRN PRN PRN Reason: LINE FLUSH Ziprasidone (Geodon) 10 mg IM Q2H PRN PRN Reason: Agitation Exam - Constitutional Vitals: Temp Pulse Resp BP Pulse Ox 98.3 F 90 18 136/88 100 08/13/18 17:17 08/13/18 17:17 08/13/18 17:17 08/13/18 17:17 08/13/18 17:17 - Psychiatric Psychiatric: no appropriate mood/affect, no intact judgment & insight Results - Labs CBC & Chem 7: 08/13/18 08:18 08/13/18 02:08 Labs: Laboratory Last Values WBC 1.5 K/mm3 (4.5-11.0) L* 08/13/18 08:18 RBC 3.50 M/mm3 (3.65-5.03) L 08/13/18 08:18 Hgb 10.4 gm/dl (10.1-14.3) 08/13/18 08:18 Hct 31.6 % (30.3-42.9) 08/13/18 08:18 MCV 90 fl (79-97) 08/13/18 08:18 MCH 30 pg (28-32) 08/13/18 08:18 MCHC 33 % (30-34) 08/13/18 08:18 RDW 16.1 % (13.2-15.2) H 08/13/18 08:18 Plt Count 145 K/mm3 (140-440) 08/13/18 08:18 [place] % (Auto) Janitor Supervisor 08/13/18 08:18 Eos % (Auto) 0.3 % (0.0-4.3) 08/13/18 08:18 [place] # 0.3 K/mm3 (0.0-0.8) 08/13/18 08:18 Eos # 0.0 K/mm3 (0.0-0.4) 08/13/18 08:18 Baso # 0.0 K/mm3 (0.0-0.1) 08/13/18 08:18 Add Manual Diff Complete 08/13/18 08:18 Total Counted 50 08/13/18 08:18 Seg Neutrophils % 48.2 % (40.0-70.0) 08/13/18 08:18 Seg Neuts % (Manual) 70.0 % (40.0-70.0) 08/13/18 08:18 Band Neutrophils % 0 % 08/13/18 08:18 Lymphocytes % (Manual) 18.0 % (13.4-35.0) 08/13/18 08:18 Reactive Lymphs % (Man) 0 % 08/13/18 08:18 Monocytes % (Manual) 12.0 % (0.0-7.3) H 08/13/18 08:18 Eosinophils % (Manual) 0 % (0.0-4.3) 08/13/18 08:18 Basophils % (Manual) 0 % (0.0-1.8) 08/13/18 08:18 Metamyelocytes % 0 % 08/13/18 08:18 Myelocytes % 0 % 08/13/18 08:18 Promyelocytes % 0 % 08/13/18 08:18 Blast Cells % 0 % 08/13/18 08:18 Nucleated RBC % Not Reportable 08/13/18 08:18 Seg Neutrophils # 0.7 K/mm3 (1.8-7.7) L 08/13/18 08:18 Seg Neutrophils # Man 1.1 K/mm3 (1.8-7.7) L 08/13/18 08:18 Band Neutrophils # 0.0 K/mm3 08/13/18 08:18 Lymphocytes # (Manual) 0.3 K/mm3 (1.2-5.4) L 08/13/18 08:18 Abs React Lymphs (Man) 0.0 K/mm3 08/13/18 08:18 Monocytes # (Manual) 0.2 K/mm3 (0.0-0.8) 08/13/18 08:18 Eosinophils # (Manual) 0.0 K/mm3 (0.0-0.4) 08/13/18 08:18 Basophils # (Manual) 0.0 K/mm3 (0.0-0.1) 08/13/18 08:18 Metamyelocytes # 0.0 K/mm3 08/13/18 08:18 Myelocytes # 0.0 K/mm3 08/13/18 08:18 Promyelocytes # 0.0 K/mm3 08/13/18 08:18 Blast Cells # 0.0 K/mm3 08/13/18 08:18 WBC Morphology Not Reportable 08/13/18 08:18 Hypersegmented Neuts Not Reportable 08/13/18 08:18 Hyposegmented Neuts Not Reportable 08/13/18 08:18 Hypogranular Neuts Not Reportable 08/13/18 08:18 Smudge Cells Not Reportable 08/13/18 08:18 Toxic Granulation Not Reportable 08/13/18 08:18 Toxic Vacuolation Not Reportable 08/13/18 08:18 Dohle Bodies Not Reportable 08/13/18 08:18 Pelger-Huet Anomaly Not Reportable 08/13/18 08:18 Brenden Rods Not Reportable 08/13/18 08:18 Platelet Estimate Consistent w auto 08/13/18 08:18 Clumped Platelets Not Reportable 08/13/18 08:18 Plt Clumps, EDTA Not Reportable 08/13/18 08:18 Large Platelets Not Reportable 08/13/18 08:18 Giant Platelets Not Reportable 08/13/18 08:18 Platelet Satelliting Not Reportable 08/13/18 08:18 Plt Morphology Comment Not Reportable 08/13/18 08:18 RBC Morphology Not Reportable 08/13/18 08:18 Dimorphic RBCs Not Reportable 08/13/18 08:18 Polychromasia Not Reportable 08/13/18 08:18 Hypochromasia Not Reportable 08/13/18 08:18 Poikilocytosis 1+ 08/13/18 08:18 Anisocytosis 1+ 08/13/18 08:18 Microcytosis Not Reportable 08/13/18 08:18 Macrocytosis Not Reportable 08/13/18 08:18 Spherocytes Not Reportable 08/13/18 08:18 Pappenheimer Bodies Not Reportable 08/13/18 08:18 Sickle Cells Not Reportable 08/13/18 08:18 Target Cells Not Reportable 08/13/18 08:18 Tear Drop Cells Few 08/13/18 08:18 Ovalocytes Not Reportable 08/13/18 08:18 Helmet Cells Not Reportable 08/13/18 08:18 [place] Bodies Not Reportable 08/13/18 08:18 [place] Rings Not Reportable 08/13/18 08:18 [place] Cells Not Reportable 08/13/18 08:18 Bite Cells Not Reportable 08/13/18 08:18 Crenated Cell Not Reportable 08/13/18 08:18 Elliptocytes Few 08/13/18 08:18 Acanthocytes (Spur) Not Reportable 08/13/18 08:18 Rouleaux Not Reportable 08/13/18 08:18 Hemoglobin C Crystals Not Reportable 08/13/18 08:18 Schistocytes Not Reportable 08/13/18 08:18 Malaria parasites Not Reportable 08/13/18 08:18 Prashant Bodies Not Reportable 08/13/18 08:18 Hem Pathologist Commnt No 08/13/18 08:18 PT 12.1 Sec. (12.2-14.9) L 08/13/18 08:18 INR 0.85 (0.87-1.13) L 08/13/18 08:18 APTT 33.0 Sec. (24.2-36.6) 08/13/18 08:18 Sodium 145 mmol/L (137-145) 08/13/18 02:08 Potassium 3.5 mmol/L (3.6-5.0) L 08/13/18 02:08 Chloride 109.6 mmol/L (98-107) H 08/13/18 02:08 Carbon Dioxide 23 mmol/L (22-30) 08/13/18 02:08 Anion Gap 16 mmol/L 08/13/18 02:08 BUN 10 mg/dL (7-17) 08/13/18 02:08 Creatinine 0.6 mg/dL (0.7-1.2) L 08/13/18 02:08 Estimated GFR > 60 ml/min 08/13/18 02:08 BUN/Creatinine Ratio 17 % 08/13/18 02:08 Glucose 78 mg/dL (65-100) 08/13/18 02:08 Lactic Acid 0.60 mmol/L (0.7-2.0) L 08/13/18 08:18 Calcium 8.8 mg/dL (8.4-10.2) 08/13/18 02:08 Magnesium 1.50 mg/dL (1.7-2.3) L 08/13/18 08:18 Total Bilirubin 0.30 mg/dL (0.1-1.2) 08/13/18 08:18 Direct Bilirubin < 0.2 mg/dL (0-0.2) 08/13/18 08:18 Indirect Bilirubin 0.1 mg/dL 08/13/18 08:18 AST 101 units/L (5-40) H 08/13/18 08:18 ALT 37 units/L (7-56) 08/13/18 08:18 Alkaline Phosphatase 139 units/L (35-129) H 08/13/18 08:18 Total Creatine Kinase 89 units/L (30-135) 08/13/18 08:18 CK-MB (CK-2) 4.3 ng/mL (0.0-4.0) H 08/13/18 08:18 CK-MB (CK-2) Rel Index 4.8 (0-4) H 08/13/18 08:18 Total Protein 7.2 g/dL (6.3-8.2) 08/13/18 08:18 Albumin 3.2 g/dL (3.9-5) L 08/13/18 08:18 Albumin/Globulin Ratio 0.8 % 08/13/18 08:18 HCG, Qual Negative (Negative) 08/13/18 04:21 Urine Color [place] (Yellow) 08/13/18 03:00 Urine Turbidity Clear (Clear) 08/13/18 03:00 Urine pH 5.0 (5.0-7.0) 08/13/18 03:00 Ur Specific [place] 1.039 (1.003-1.030) H 08/13/18 03:00 Urine Protein 100 mg/dl mg/dL (Negative) 08/13/18 03:00 Urine Glucose (UA) Neg mg/dL (Negative) 08/13/18 03:00 Urine Ketones Neg mg/dL (Negative) 08/13/18 03:00 Urine Blood Neg (Negative) 08/13/18 03:00 Urine Nitrite Neg (Negative) 08/13/18 03:00 Urine Bilirubin Neg (Negative) 08/13/18 03:00 Urine Urobilinogen 4.0 mg/dL (<2.0) 08/13/18 03:00 Ur Leukocyte Esterase Tr (Negative) 08/13/18 03:00 Urine WBC (Auto) 9.0 /HPF (0.0-6.0) H 08/13/18 03:00 Urine RBC (Auto) 7.0 /HPF (0.0-6.0) 08/13/18 03:00 U Epithel Cells (Auto) 20.0 /HPF (0-13.0) H 08/13/18 03:00 Urine Bacteria (Auto) 1+ /HPF (Negative) 08/13/18 03:00 Urine Mucus Few /HPF 08/13/18 03:00 Salicylates < 0.3 mg/dL (2.8-20.0) L 08/13/18 02:08 Urine Opiates Screen Presumptive negative 08/13/18 03:00 Urine Methadone Screen Presumptive negative 08/13/18 03:00 Acetaminophen < 5.0 ug/mL (10.0-30.0) L 08/13/18 02:08 Ur Barbiturates Screen Presumptive negative 08/13/18 03:00 Ur Phencyclidine Scrn Presumptive negative 08/13/18 03:00 Ur Amphetamines Screen Presumptive negative 08/13/18 03:00 U Benzodiazepines Scrn Presumptive negative 08/13/18 03:00 Urine Cocaine Screen Presumptive positive 08/13/18 03:00 U Marijuana (THC) Screen Presumptive negative 08/13/18 03:00 Drugs of Abuse Note Disclamer 08/13/18 03:00 Plasma/Serum Alcohol < 0.01 % (0-0.07) 04/19/19 02:08 Assessment and Plan Assessment and plan: I saw and evaluated the patient. I agree with the findings and the plan of care as documented in the Nurse Practitioner's~note, with the following corrections and additions. 42 year old woman with history of HIV AIDS call my most recent documented CD4 count was 4, the patient has a known history of ongoing cocaine abuse, she's non-compliance with retroviral medications. She presents with a convoluted and confused story, she's disorganized, hallucinating having pressured speech, and not making sense. She's also complaining of right-sided paresthesias, numbness in her right foot, she has worsening neutropenia, abnormal findings in the city of her brain. Case discussed with infectious disease. Obtain HIV viral load, CD4 counts, obtain MRI brain, for LP on Thursday The patient has been confused and refusing treatment, will give her psych meds as needed for agitation, mental health consult pending Replete electrolytes She was counseled on cocaine cessation, 16 minutes was spent on preventive health counseling
--- NOTE | 2018-08-13 20:23 | Event Note ---
Date: 08/13/18 Received consultation for 42 y/o female with AIDS non compliance with AMS/delusion with UDS cocaine positive, found to have an abnormal head CT with atrophy and ventriculomegaly. Discussed CT findings with Radiologist and no evidence of brain toxoplasmosis or brain masses. Patient refused interview and examination. She did not want to talk about her HIV condition nor she was interested on any ART. She reported she had intolerance to ART and did not want to even try them. She stated she knew her rights and requested no further ID evaluation. At this point I told her that I would be available if she changed her mind. Also noted with chronic neutropenia for several years. Agree with LP to r/o opportunistic brain infection, neurosyphilis. Check RPR, cryptococcal antigen, CMV DNA PCR, VL, CD4. Will attempt to see her again on Thursday.
[2018-08-13] MEDS: COLACE PO SCH (22:00)
[2018-08-13] MEDS: GEODON IM PRN (23:25)
[2018-08-14] MEDS: COLACE PO SCH ×4 (00:31→23:36)
[2018-08-14] MEDS: SODIUM CHLORIDE FLUSH SYRINGE 10 ML IV SCH ×3 (01:30→23:45)
[2018-08-14 07:30] LABS: Basophils % (Auto) 0.5 % (0.0-1.8); Eosinophils % (Auto) 0.3 % (0.0-4.3); Hematocrit 32.9 % (30.3-42.9); Hemoglobin 10.7 gm/dl (10.1-14.3); Lymphocytes # (Auto) 0.5 K/mm3 (1.2-5.4); Lymphocytes % (Auto) 19.6 % (13.4-35.0); Mean Corpuscular HGB Conc 33 % (30-34); Mean Corpuscular Volume 90 fl (79-97); Monocytes # (Auto) 0.4 K/mm3 (0.0-0.8); Monocytes % (Auto) 15.1 % (0.0-7.3); Platelet Count 136 K/mm3 (140-440); Red Blood Count 3.67 M/mm3 (3.65-5.03); Red Cell Distribution Width 16.1 % (13.2-15.2)
[2018-08-14 07:41] LABS: BUN/Creatinine Ratio 12; Blood Urea Nitrogen 6 mg/dL (7-17); Calcium 7.9 mg/dL (8.4-10.2); Hemolysis Index 6
--- NOTE | 2018-08-14 10:05 | Progress Note ---
Assessment and Plan Assessment and plan: 42 year old woman with history of HIV AIDS call my most recent documented CD4 count was 4, the patient has a known history of ongoing cocaine abuse, she's non-compliance with retroviral medications. She presents with a convoluted and confused story, she's disorganized, hallucinating having pressured speech, and not making sense. consult pending, cont 1013 She's also complaining of right-sided paresthesias, numbness in her right foot, she has worsening neutropenia, abnormal findings in the CT of her brain. Case discussed with infectious disease. fup HIV viral load, CD4 counts, MRI brain showed global cortical atrophy disproportionate ventricular megaly suggesting normal pressure hydrocephalus. Extensive chronic white matter disease of uncertain etiology., for LP on Thursday The patient has been confused and refusing treatment, will give her psych meds as needed for agitation, mental health consult pending Replete electrolytes She was counseled on cocaine cessation, 16 minutes was spent on preventive health counseling -The patient continues to refuse antiretrovirals, she states that he made her ill -She had received infectious disease consult, ID will attempt to see her again on Thursday -fup blood and urine cx -electrolytes repleted Diagnosis HIV AIDS acute pyschosis SIRS no organ dysfunction non adherence to retroviral meds NPH, chronic white matter disease of brain R sided paresthesias and numbness neutropenia schizoprenia Hypokalemia hypomagenesemia Cocaine abuse History Interval history: She continues to complain of right-sided paresthesias and numbness in her right foot Nursing staff reported that she remains disorganized, refusing treatments, not making sense Review of systems Constitutional: No fevers, no malaise, no joint pains CVS: No chest pain, no orthopnea, no dyspnea on exertion, no pedal edema GI: No abdominal pain, no diarrhea, no vomiting, no constipation Respiratory: no wheezing, no coughing Hospitalist Physical - Physical exam Narrative exam: General.: Appears well, no distress, nontoxic HEENT: Moist mucous membranes, extraocular muscles intact, no lymphadenopathy Neck: supple Cardiac: S1-S2 heard Lungs: clear to auscultation bilaterally Abdomen: soft , nontender, nondistended, bowel sounds positive Extremities: no edema clubbing or cyanosis Skin: no rash or lesions Neurologic: no gross focal deficits Psych: calm, and cooperative, disorganized, and appropriate affect - Constitutional Vitals: Temp Pulse Resp BP Pulse Ox 98.4 F 62 18 130/70 98 08/14/18 06:12 08/14/18 06:12 08/14/18 06:12 08/14/18 06:12 08/14/18 06:12 General appearance: Present: disheveled Results - Labs CBC & Chem 7: 08/14/18 07:01 08/14/18 07:01 Labs: Laboratory Last Values WBC 2.6 K/mm3 (4.5-11.0) L 08/14/18 07:01 RBC 3.67 M/mm3 (3.65-5.03) 08/14/18 07:01 Hgb 10.7 gm/dl (10.1-14.3) 08/14/18 07:01 Hct 32.9 % (30.3-42.9) 08/14/18 07:01 MCV 90 fl (79-97) 08/14/18 07:01 MCH 29 pg (28-32) 08/14/18 07:01 MCHC 33 % (30-34) 08/14/18 07:01 RDW 16.1 % (13.2-15.2) H 08/14/18 07:01 Plt Count 136 K/mm3 (140-440) L 08/14/18 07:01 Lymph % (Auto) 19.6 % (13.4-35.0) 08/14/18 07:01 [place] % (Auto) 15.1 % (0.0-7.3) H 08/14/18 07:01 Eos % (Auto) 0.3 % (0.0-4.3) 08/14/18 07:01 Baso % (Auto) 0.5 % (0.0-1.8) 08/14/18 07:01 Lymph # 0.5 K/mm3 (1.2-5.4) L 08/14/18 07:01 [place] # 0.4 K/mm3 (0.0-0.8) 08/14/18 07:01 Eos # 0.0 K/mm3 (0.0-0.4) 08/14/18 07:01 Baso # 0.0 K/mm3 (0.0-0.1) 08/14/18 07:01 Add Manual Diff Complete 08/13/18 08:18 Total Counted 50 08/13/18 08:18 Seg Neutrophils % 64.5 % (40.0-70.0) 08/14/18 07:01 Seg Neuts % (Manual) 70.0 % (40.0-70.0) 08/13/18 08:18 Band Neutrophils % 0 % 08/13/18 08:18 Lymphocytes % (Manual) 18.0 % (13.4-35.0) 08/13/18 08:18 Reactive Lymphs % (Man) 0 % 08/13/18 08:18 Monocytes % (Manual) 12.0 % (0.0-7.3) H 08/13/18 08:18 Eosinophils % (Manual) 0 % (0.0-4.3) 08/13/18 08:18 Basophils % (Manual) 0 % (0.0-1.8) 08/13/18 08:18 Metamyelocytes % 0 % 08/13/18 08:18 Myelocytes % 0 % 08/13/18 08:18 Promyelocytes % 0 % 08/13/18 08:18 Blast Cells % 0 % 08/13/18 08:18 Nucleated RBC % Not Reportable 08/13/18 08:18 Seg Neutrophils # 1.7 K/mm3 (1.8-7.7) L 08/14/18 07:01 Seg Neutrophils # Man 1.1 K/mm3 (1.8-7.7) L 08/13/18 08:18 Band Neutrophils # 0.0 K/mm3 08/13/18 08:18 Lymphocytes # (Manual) 0.3 K/mm3 (1.2-5.4) L 08/13/18 08:18 Abs React Lymphs (Man) 0.0 K/mm3 08/13/18 08:18 Monocytes # (Manual) 0.2 K/mm3 (0.0-0.8) 08/13/18 08:18 Eosinophils # (Manual) 0.0 K/mm3 (0.0-0.4) 08/13/18 08:18 Basophils # (Manual) 0.0 K/mm3 (0.0-0.1) 08/13/18 08:18 Metamyelocytes # 0.0 K/mm3 08/13/18 08:18 Myelocytes # 0.0 K/mm3 08/13/18 08:18 Promyelocytes # 0.0 K/mm3 08/13/18 08:18 Blast Cells # 0.0 K/mm3 08/13/18 08:18 WBC Morphology Not Reportable 08/13/18 08:18 Hypersegmented Neuts Not Reportable 08/13/18 08:18 Hyposegmented Neuts Not Reportable 08/13/18 08:18 Hypogranular Neuts Not Reportable 08/13/18 08:18 Smudge Cells Not Reportable 08/13/18 08:18 Toxic Granulation Not Reportable 08/13/18 08:18 Toxic Vacuolation Not Reportable 08/13/18 08:18 Dohle Bodies Not Reportable 08/13/18 08:18 Pelger-Huet Anomaly Not Reportable 08/13/18 08:18 Brenden Rods Not Reportable 08/13/18 08:18 Platelet Estimate Consistent w auto 08/13/18 08:18 Clumped Platelets Not Reportable 08/13/18 08:18 Plt Clumps, EDTA Not Reportable 08/13/18 08:18 Large Platelets Not Reportable 08/13/18 08:18 Giant Platelets Not Reportable 08/13/18 08:18 Platelet Satelliting Not Reportable 08/13/18 08:18 Plt Morphology Comment Not Reportable 08/13/18 08:18 RBC Morphology Not Reportable 08/13/18 08:18 Dimorphic RBCs Not Reportable 08/13/18 08:18 Polychromasia Not Reportable 08/13/18 08:18 Hypochromasia Not Reportable 08/13/18 08:18 Poikilocytosis 1+ 08/13/18 08:18 Anisocytosis 1+ 08/13/18 08:18 Microcytosis Not Reportable 08/13/18 08:18 Macrocytosis Not Reportable 08/13/18 08:18 Spherocytes Not Reportable 08/13/18 08:18 Pappenheimer Bodies Not Reportable 08/13/18 08:18 Sickle Cells Not Reportable 08/13/18 08:18 Target Cells Not Reportable 08/13/18 08:18 Tear Drop Cells Few 08/13/18 08:18 Ovalocytes Not Reportable 08/13/18 08:18 Helmet Cells Not Reportable 08/13/18 08:18 [place] Bodies Not Reportable 08/13/18 08:18 [place] Rings Not Reportable 08/13/18 08:18 [place] Cells Not Reportable 08/13/18 08:18 Bite Cells Not Reportable 08/13/18 08:18 Crenated Cell Not Reportable 08/13/18 08:18 Elliptocytes Few 08/13/18 08:18 Acanthocytes (Spur) Not Reportable 08/13/18 08:18 Rouleaux Not Reportable 08/13/18 08:18 Hemoglobin C Crystals Not Reportable 08/13/18 08:18 Schistocytes Not Reportable 08/13/18 08:18 Malaria parasites Not Reportable 08/13/18 08:18 Prashant Bodies Not Reportable 08/13/18 08:18 Hem Pathologist Commnt No 08/13/18 08:18 PT 12.1 Sec. (12.2-14.9) L 08/13/18 08:18 INR 0.85 (0.87-1.13) L 08/13/18 08:18 APTT 33.0 Sec. (24.2-36.6) 08/13/18 08:18 Sodium 143 mmol/L (137-145) 08/14/18 07:01 Potassium 3.4 mmol/L (3.6-5.0) L 08/14/18 07:01 Chloride 110.7 mmol/L (98-107) H 08/14/18 07:01 Carbon Dioxide 22 mmol/L (22-30) 08/14/18 07:01 Anion Gap 14 mmol/L 08/14/18 07:01 BUN 6 mg/dL (7-17) L 08/14/18 07:01 Creatinine 0.5 mg/dL (0.7-1.2) L 08/14/18 07:01 Estimated GFR > 60 ml/min 08/14/18 07:01 BUN/Creatinine Ratio 12 % 08/14/18 07:01 Glucose 94 mg/dL (65-100) 08/14/18 07:01 Lactic Acid 0.60 mmol/L (0.7-2.0) L 08/13/18 08:18 Calcium 7.9 mg/dL (8.4-10.2) L 08/14/18 07:01 Magnesium 2.20 mg/dL (1.7-2.3) 08/14/18 07:01 Total Bilirubin 0.30 mg/dL (0.1-1.2) 08/13/18 08:18 Direct Bilirubin < 0.2 mg/dL (0-0.2) 08/13/18 08:18 Indirect Bilirubin 0.1 mg/dL 08/13/18 08:18 AST 101 units/L (5-40) H 08/13/18 08:18 ALT 37 units/L (7-56) 08/13/18 08:18 Alkaline Phosphatase 139 units/L (35-129) H 08/13/18 08:18 Total Creatine Kinase 89 units/L (30-135) 08/13/18 08:18 CK-MB (CK-2) 4.3 ng/mL (0.0-4.0) H 08/13/18 08:18 CK-MB (CK-2) Rel Index 4.8 (0-4) H 08/13/18 08:18 Total Protein 7.2 g/dL (6.3-8.2) 08/13/18 08:18 Albumin 3.2 g/dL (3.9-5) L 08/13/18 08:18 Albumin/Globulin Ratio 0.8 % 08/13/18 08:18 HCG, Qual Negative (Negative) 08/13/18 04:21 Urine Color [place] (Yellow) 08/13/18 03:00 Urine Turbidity Clear (Clear) 08/13/18 03:00 Urine pH 5.0 (5.0-7.0) 08/13/18 03:00 Ur Specific [place] 1.039 (1.003-1.030) H 08/13/18 03:00 Urine Protein 100 mg/dl mg/dL (Negative) 08/13/18 03:00 Urine Glucose (UA) Neg mg/dL (Negative) 08/13/18 03:00 Urine Ketones Neg mg/dL (Negative) 08/13/18 03:00 Urine Blood Neg (Negative) 08/13/18 03:00 Urine Nitrite Neg (Negative) 08/13/18 03:00 Urine Bilirubin Neg (Negative) 08/13/18 03:00 Urine Urobilinogen 4.0 mg/dL (<2.0) 08/13/18 03:00 Ur Leukocyte Esterase Tr (Negative) 08/13/18 03:00 Urine WBC (Auto) 9.0 /HPF (0.0-6.0) H 08/13/18 03:00 Urine RBC (Auto) 7.0 /HPF (0.0-6.0) 08/13/18 03:00 U Epithel Cells (Auto) 20.0 /HPF (0-13.0) H 08/13/18 03:00 Urine Bacteria (Auto) 1+ /HPF (Negative) 08/13/18 03:00 Urine Mucus Few /HPF 08/13/18 03:00 Salicylates < 0.3 mg/dL (2.8-20.0) L 08/13/18 02:08 Urine Opiates Screen Presumptive negative 08/13/18 03:00 Urine Methadone Screen Presumptive negative 08/13/18 03:00 Acetaminophen < 5.0 ug/mL (10.0-30.0) L 08/13/18 02:08 Ur Barbiturates Screen Presumptive negative 08/13/18 03:00 Ur Phencyclidine Scrn Presumptive negative 08/13/18 03:00 Ur Amphetamines Screen Presumptive negative 08/13/18 03:00 U Benzodiazepines Scrn Presumptive negative 08/13/18 03:00 Urine Cocaine Screen Presumptive positive 08/13/18 03:00 U Marijuana (THC) Screen Presumptive negative 08/13/18 03:00 Drugs of Abuse Note Disclamer 08/13/18 03:00 Plasma/Serum Alcohol < 0.01 % (0-0.07) 08/13/18 02:08 Active Medications - Current Medications Current Medications: Generic Name Dose Route Start Last Admin Trade Name Freq PRN Reason Stop Dose Admin Acetaminophen 650 mg 08/13/18 11:12 Tylenol PO Q4H PRN Pain MILD(1-3)/Fever >100.5/CORRAL Docusate Sodium 100 mg 08/13/18 22:00 08/13/18 22:00 Colace PO Not Given BID ANISA Ibuprofen 600 mg 08/13/18 11:12 Motrin PO Q6H PRN Pain, Mild (1-3) Morphine Sulfate 2 mg 08/13/18 11:12 Morphine IV 08/14/18 23:59 Q4H PRN Pain, Moderate (4-6) Olanzapine 5 mg 08/13/18 19:10 Zyprexa Zydis PO Q6H PRN Agitation Ondansetron HCl 4 mg 08/13/18 11:12 Zofran IV Q8H PRN Nausea And Vomiting Potassium Chloride 20 meq 08/14/18 10:00 K-Dur PO QDAY ANISA Quetiapine Fumarate 50 mg 08/13/18 22:00 08/14/18 00:32 Seroquel PO 50 mg QHS ANISA Administration Sodium Chloride 10 ml 08/13/18 22:00 08/14/18 01:30 Sodium Chloride Flush Syringe 10 Ml IV 10 ml BID ANISA Administration Sodium Chloride 10 ml 08/13/18 11:12 Sodium Chloride Flush Syringe 10 Ml IV PRN PRN LINE FLUSH Ziprasidone 10 mg 08/13/18 19:10 08/13/18 23:25 Geodon IM 10 mg Q2H PRN Administration Agitation
[2018-08-14] MEDS: K-DUR PO SCH (12:47)
[2018-08-14] MEDS: LOVENOX SUB-Q SCH (12:48)
[2018-08-14] MEDS: GEODON IM PRN (13:54)
[2018-08-14] MEDS ORDERED: WATER FOR INJ (PF) ONE (13:54)
--- NOTE | 2018-08-14 20:06 | Progress Note ---
Subjective - Reason for Consult Consult date: 08/14/18 Reason for consult: follow up - Chief Complaint Chief complaint: Acute Psychosis Patient is a 42-year-old [place]ian [place]ian female was [place] a gas station exhibiting delusions. Patient was yelling that she just had a miscarriage although the patient did not show any evidence of being . Patient was brought here for evaluation. Per record patient has a past medical history of HIV. Leukocyte count of 2.0. Laboratory studies were remarkable for a dropping neutrophil count now with an ANC in the 700s and a magnesium of 1.5. Patient has a PPHx of schizophrenia. Her sitter states she has been threatening to elope and uses profanity toward staff. She was calm and cooperative for interview. She asked for a new sitter and said the current one is using witchcraft in the room. Mental Status Exam - Vital signs Last Vital Signs Temp 99.4 F 08/14/18 18:10 Pulse 103 H 08/14/18 18:10 Resp 19 08/14/18 18:10 BP 104/71 08/14/18 18:10 Pulse Ox 99 08/14/18 18:10 - Exam Narrative exam: Appearance: in hospital scrubs, poorly groomed Behavior: poor eye contact Speech: rapid rate and regular tone Mood: "I'm content " ; anxious/labile Affect: congruent to mood Thought Process: disorganized, loose associations, impoverished Thought Content: Denies SI/HI's, A/VH's, and delusions; + internally preoccupied, paranoid. Motor Activity: laying in bed. Cognition: A/O x 3 Insight: poor Judgment: poor Assessment and Plan Impression: PPHx schizophrenia. Psychosis Unspecified. Today the patient is cooperative but anxious during the assessment. Patient mood is labile with perceptual disturbances and paranoid delusions. Thought process is disorganized. UDS is positive for cocaine. Recommendation/Plan: 1. Continue 1013. 2. Increase seroquel to 100mg po QHS mood/psychosis. Discussed metabolic side effects. Patient verbalizes understanding. 3. Will attempt to gain collateral. Disposition: Will refer patient to inpatient psychiatric services once patient is medically cleared. Will staff with Dr. Natty Menjivar.
[2018-08-15] MEDS: K-DUR PO SCH (09:12)
[2018-08-15] MEDS: COLACE PO SCH ×2 (09:12→22:46)
[2018-08-15] MEDS: SODIUM CHLORIDE FLUSH SYRINGE 10 ML IV SCH ×2 (09:13→22:50)
--- NOTE | 2018-08-15 09:36 | Progress Note ---
Assessment and Plan Assessment and plan: 42 year old woman with history of HIV AIDS call my most recent documented CD4 count was 4, the patient has a known history of ongoing cocaine abuse, she's non-compliance with retroviral medications. She presents with a convoluted and confused story, she's disorganized, hallucinating having pressured speech, and not making sense. consult pending, cont 1013 She's also complaining of right-sided paresthesias, numbness in her right foot, she has worsening neutropenia, abnormal findings in the CT of her brain. Case discussed with infectious disease. fup HIV viral load, CD4 counts, MRI brain showed global cortical atrophy disproportionate ventricular megaly suggesting normal pressure hydrocephalus. Extensive chronic white matter disease of uncertain etiology., for LP on Thursday The patient has been confused and refusing treatment, will give her psych meds as needed for agitation, mental health consult pending Replete electrolytes She was counseled on cocaine cessation, 16 minutes was spent on preventive health counseling -The patient continues to refuse antiretrovirals, she states that he made her ill -She had received infectious disease consult, ID will attempt to see her again on Thursday -fup blood and urine cx -electrolytes repleted Diagnosis HIV/ AIDS acute pyschosis SIRS no organ dysfunction non adherence to retroviral meds NPH, chronic white matter disease of brain R sided paresthesias and numbness neutropenia schizoprenia Hypokalemia hypomagenesemia Cocaine abuse History Interval history: She continues to complain of right-sided paresthesias and numbness in her right foot Nursing staff reported that she remains disorganized, refusing treatments, not making sense Review of systems Constitutional: No fevers, no malaise, no joint pains CVS: No chest pain, no orthopnea, no dyspnea on exertion, no pedal edema GI: No abdominal pain, no diarrhea, no vomiting, no constipation Respiratory: no wheezing, no coughing Hospitalist Physical - Physical exam Narrative exam: General.: Appears well, no distress, nontoxic HEENT: Moist mucous membranes, extraocular muscles intact, no lymphadenopathy Neck: supple Cardiac: S1-S2 heard Lungs: clear to auscultation bilaterally Abdomen: soft , nontender, nondistended, bowel sounds positive Extremities: no edema clubbing or cyanosis Skin: no rash or lesions Neurologic: no gross focal deficits Psych: calm, and cooperative, disorganized, and appropriate affect - Constitutional Vitals: Temp Pulse Resp BP Pulse Ox 99.2 F 113 H 20 94/62 100 08/15/18 06:00 08/15/18 06:00 08/15/18 06:00 08/15/18 06:00 08/15/18 06:00 General appearance: Present: disheveled Results - Labs CBC & Chem 7: 08/14/18 07:01 08/14/18 07:01 Labs: Laboratory Last Values WBC 2.6 K/mm3 (4.5-11.0) L 08/14/18 07:01 RBC 3.67 M/mm3 (3.65-5.03) 08/14/18 07:01 Hgb 10.7 gm/dl (10.1-14.3) 08/14/18 07:01 Hct 32.9 % (30.3-42.9) 08/14/18 07:01 MCV 90 fl (79-97) 08/14/18 07:01 MCH 29 pg (28-32) 08/14/18 07:01 MCHC 33 % (30-34) 08/14/18 07:01 RDW 16.1 % (13.2-15.2) H 08/14/18 07:01 Plt Count 136 K/mm3 (140-440) L 08/14/18 07:01 Lymph % (Auto) 19.6 % (13.4-35.0) 08/14/18 07:01 [place] % (Auto) 15.1 % (0.0-7.3) H 08/14/18 07:01 Eos % (Auto) 0.3 % (0.0-4.3) 08/14/18 07:01 Baso % (Auto) 0.5 % (0.0-1.8) 08/14/18 07:01 Lymph # 0.5 K/mm3 (1.2-5.4) L 08/14/18 07:01 [place] # 0.4 K/mm3 (0.0-0.8) 08/14/18 07:01 Eos # 0.0 K/mm3 (0.0-0.4) 08/14/18 07:01 Baso # 0.0 K/mm3 (0.0-0.1) 08/14/18 07:01 Add Manual Diff Complete 08/13/18 08:18 Total Counted 50 08/13/18 08:18 Seg Neutrophils % 64.5 % (40.0-70.0) 08/14/18 07:01 Seg Neuts % (Manual) 70.0 % (40.0-70.0) 08/13/18 08:18 Band Neutrophils % 0 % 08/13/18 08:18 Lymphocytes % (Manual) 18.0 % (13.4-35.0) 08/13/18 08:18 Reactive Lymphs % (Man) 0 % 08/13/18 08:18 Monocytes % (Manual) 12.0 % (0.0-7.3) H 08/13/18 08:18 Eosinophils % (Manual) 0 % (0.0-4.3) 08/13/18 08:18 Basophils % (Manual) 0 % (0.0-1.8) 08/13/18 08:18 Metamyelocytes % 0 % 08/13/18 08:18 Myelocytes % 0 % 08/13/18 08:18 Promyelocytes % 0 % 08/13/18 08:18 Blast Cells % 0 % 08/13/18 08:18 Nucleated RBC % Not Reportable 08/13/18 08:18 Seg Neutrophils # 1.7 K/mm3 (1.8-7.7) L 08/14/18 07:01 Seg Neutrophils # Man 1.1 K/mm3 (1.8-7.7) L 08/13/18 08:18 Band Neutrophils # 0.0 K/mm3 08/13/18 08:18 Lymphocytes # (Manual) 0.3 K/mm3 (1.2-5.4) L 08/13/18 08:18 Abs React Lymphs (Man) 0.0 K/mm3 08/13/18 08:18 Monocytes # (Manual) 0.2 K/mm3 (0.0-0.8) 08/13/18 08:18 Eosinophils # (Manual) 0.0 K/mm3 (0.0-0.4) 08/13/18 08:18 Basophils # (Manual) 0.0 K/mm3 (0.0-0.1) 08/13/18 08:18 Metamyelocytes # 0.0 K/mm3 08/13/18 08:18 Myelocytes # 0.0 K/mm3 08/13/18 08:18 Promyelocytes # 0.0 K/mm3 08/13/18 08:18 Blast Cells # 0.0 K/mm3 08/13/18 08:18 WBC Morphology Not Reportable 08/13/18 08:18 Hypersegmented Neuts Not Reportable 08/13/18 08:18 Hyposegmented Neuts Not Reportable 08/13/18 08:18 Hypogranular Neuts Not Reportable 08/13/18 08:18 Smudge Cells Not Reportable 08/13/18 08:18 Toxic Granulation Not Reportable 08/13/18 08:18 Toxic Vacuolation Not Reportable 08/13/18 08:18 Dohle Bodies Not Reportable 08/13/18 08:18 Pelger-Huet Anomaly Not Reportable 08/13/18 08:18 Brenden Rods Not Reportable 08/13/18 08:18 Platelet Estimate Consistent w auto 08/13/18 08:18 Clumped Platelets Not Reportable 08/13/18 08:18 Plt Clumps, EDTA Not Reportable 08/13/18 08:18 Large Platelets Not Reportable 08/13/18 08:18 Giant Platelets Not Reportable 08/13/18 08:18 Platelet Satelliting Not Reportable 08/13/18 08:18 Plt Morphology Comment Not Reportable 08/13/18 08:18 RBC Morphology Not Reportable 08/13/18 08:18 Dimorphic RBCs Not Reportable 08/13/18 08:18 Polychromasia Not Reportable 08/13/18 08:18 Hypochromasia Not Reportable 08/13/18 08:18 Poikilocytosis 1+ 08/13/18 08:18 Anisocytosis 1+ 08/13/18 08:18 Microcytosis Not Reportable 08/13/18 08:18 Macrocytosis Not Reportable 08/13/18 08:18 Spherocytes Not Reportable 08/13/18 08:18 Pappenheimer Bodies Not Reportable 08/13/18 08:18 Sickle Cells Not Reportable 08/13/18 08:18 Target Cells Not Reportable 08/13/18 08:18 Tear Drop Cells Few 08/13/18 08:18 Ovalocytes Not Reportable 08/13/18 08:18 Helmet Cells Not Reportable 08/13/18 08:18 [place] Bodies Not Reportable 08/13/18 08:18 [place] Rings Not Reportable 08/13/18 08:18 [place] Cells Not Reportable 08/13/18 08:18 Bite Cells Not Reportable 08/13/18 08:18 Crenated Cell Not Reportable 08/13/18 08:18 Elliptocytes Few 08/13/18 08:18 Acanthocytes (Spur) Not Reportable 08/13/18 08:18 Rouleaux Not Reportable 08/13/18 08:18 Hemoglobin C Crystals Not Reportable 08/13/18 08:18 Schistocytes Not Reportable 08/13/18 08:18 Malaria parasites Not Reportable 08/13/18 08:18 Prashant Bodies Not Reportable 08/13/18 08:18 Hem Pathologist Commnt No 08/13/18 08:18 PT 12.1 Sec. (12.2-14.9) L 08/13/18 08:18 INR 0.85 (0.87-1.13) L 08/13/18 08:18 APTT 33.0 Sec. (24.2-36.6) 08/13/18 08:18 Sodium 143 mmol/L (137-145) 08/14/18 07:01 Potassium 3.4 mmol/L (3.6-5.0) L 08/14/18 07:01 Chloride 110.7 mmol/L (98-107) H 08/14/18 07:01 Carbon Dioxide 22 mmol/L (22-30) 08/14/18 07:01 Anion Gap 14 mmol/L 08/14/18 07:01 BUN 6 mg/dL (7-17) L 08/14/18 07:01 Creatinine 0.5 mg/dL (0.7-1.2) L 08/14/18 07:01 Estimated GFR > 60 ml/min 08/14/18 07:01 BUN/Creatinine Ratio 12 % 08/14/18 07:01 Glucose 94 mg/dL (65-100) 08/14/18 07:01 Lactic Acid 0.60 mmol/L (0.7-2.0) L 08/13/18 08:18 Calcium 7.9 mg/dL (8.4-10.2) L 08/14/18 07:01 Magnesium 2.20 mg/dL (1.7-2.3) 08/14/18 07:01 Total Bilirubin 0.30 mg/dL (0.1-1.2) 08/13/18 08:18 Direct Bilirubin < 0.2 mg/dL (0-0.2) 08/13/18 08:18 Indirect Bilirubin 0.1 mg/dL 08/13/18 08:18 AST 101 units/L (5-40) H 08/13/18 08:18 ALT 37 units/L (7-56) 08/13/18 08:18 Alkaline Phosphatase 139 units/L (35-129) H 08/13/18 08:18 Total Creatine Kinase 89 units/L (30-135) 08/13/18 08:18 CK-MB (CK-2) 4.3 ng/mL (0.0-4.0) H 08/13/18 08:18 CK-MB (CK-2) Rel Index 4.8 (0-4) H 08/13/18 08:18 Total Protein 7.2 g/dL (6.3-8.2) 08/13/18 08:18 Albumin 3.2 g/dL (3.9-5) L 08/13/18 08:18 Albumin/Globulin Ratio 0.8 % 08/13/18 08:18 HCG, Qual Negative (Negative) 08/13/18 04:21 Urine Color [place] (Yellow) 08/13/18 03:00 Urine Turbidity Clear (Clear) 08/13/18 03:00 Urine pH 5.0 (5.0-7.0) 08/13/18 03:00 Ur Specific [place] 1.039 (1.003-1.030) H 08/13/18 03:00 Urine Protein 100 mg/dl mg/dL (Negative) 08/13/18 03:00 Urine Glucose (UA) Neg mg/dL (Negative) 08/13/18 03:00 Urine Ketones Neg mg/dL (Negative) 08/13/18 03:00 Urine Blood Neg (Negative) 08/13/18 03:00 Urine Nitrite Neg (Negative) 08/13/18 03:00 Urine Bilirubin Neg (Negative) 08/13/18 03:00 Urine Urobilinogen 4.0 mg/dL (<2.0) 08/13/18 03:00 Ur Leukocyte Esterase Tr (Negative) 08/13/18 03:00 Urine WBC (Auto) 9.0 /HPF (0.0-6.0) H 08/13/18 03:00 Urine RBC (Auto) 7.0 /HPF (0.0-6.0) 08/13/18 03:00 U Epithel Cells (Auto) 20.0 /HPF (0-13.0) H 08/13/18 03:00 Urine Bacteria (Auto) 1+ /HPF (Negative) 08/13/18 03:00 Urine Mucus Few /HPF 08/13/18 03:00 Salicylates < 0.3 mg/dL (2.8-20.0) L 08/13/18 02:08 Urine Opiates Screen Presumptive negative 08/13/18 03:00 Urine Methadone Screen Presumptive negative 08/13/18 03:00 Acetaminophen < 5.0 ug/mL (10.0-30.0) L 08/13/18 02:08 Ur Barbiturates Screen Presumptive negative 08/13/18 03:00 Ur Phencyclidine Scrn Presumptive negative 08/13/18 03:00 Ur Amphetamines Screen Presumptive negative 08/13/18 03:00 U Benzodiazepines Scrn Presumptive negative 08/13/18 03:00 Urine Cocaine Screen Presumptive positive 08/13/18 03:00 U Marijuana (THC) Screen Presumptive negative 08/13/18 03:00 Drugs of Abuse Note Disclamer 08/13/18 03:00 Plasma/Serum Alcohol < 0.01 % (0-0.07) 08/13/18 02:08 RPR Nonreactive (Nonreactive) 08/13/18 17:40 Active Medications - Current Medications Current Medications: Generic Name Dose Route Start Last Admin Trade Name Freq PRN Reason Stop Dose Admin Acetaminophen 650 mg 08/13/18 11:12 Tylenol PO Q4H PRN Pain MILD(1-3)/Fever >100.5/CORRAL Docusate Sodium 100 mg 08/13/18 22:00 08/15/18 09:12 Colace PO Not Given BID ANISA Ibuprofen 600 mg 08/13/18 11:12 Motrin PO Q6H PRN Pain, Mild (1-3) Olanzapine 5 mg 08/13/18 19:10 Zyprexa Zydis PO Q6H PRN Agitation Ondansetron HCl 4 mg 08/13/18 11:12 Zofran IV Q8H PRN Nausea And Vomiting Potassium Chloride 20 meq 08/14/18 10:00 08/15/18 09:12 K-Dur PO Not Given QDAY ANISA Quetiapine Fumarate 100 mg 08/14/18 19:31 08/14/18 23:36 Seroquel PO 100 mg QHS ANISA Administration Sodium Chloride 10 ml 08/13/18 22:00 08/15/18 09:13 Sodium Chloride Flush Syringe 10 Ml IV Not Given BID ANISA Sodium Chloride 10 ml 08/13/18 11:12 Sodium Chloride Flush Syringe 10 Ml IV PRN PRN LINE FLUSH Ziprasidone 10 mg 08/13/18 19:10 08/14/18 13:54 Geodon IM 10 mg Q2H PRN Administration Agitation
[2018-08-15] MEDS ORDERED: WATER FOR INJ (PF) ONE (10:51)
[2018-08-15] MEDS: GEODON IM PRN ×2 (10:57→23:22)
[2018-08-15 11:02] LABS: Hematocrit 34.5 % (30.3-42.9); Hemoglobin 11.2 gm/dl (10.1-14.3); Mean Corpuscular HGB Conc 32 % (30-34); Mean Corpuscular Volume 91 fl (79-97); Mean Platelet Volume 8.6 fl (6-12); Platelet Count 119 K/mm3 (140-440); Red Blood Count 3.81 M/mm3 (3.65-5.03); Red Cell Distribution Width 16.1 % (13.2-15.2)
[2018-08-15 11:07] LABS: BUN/Creatinine Ratio 16; Blood Urea Nitrogen 8 mg/dL (7-17); Hemolysis Index 4
[2018-08-15 11:55] LABS: Basophils % (Manual) 0 % (0.0-1.8); Eosinophils % (Manual) 0 % (0.0-4.3); Total Cells Counted 100
[2018-08-15 11:56] LABS: Anisocytosis 1+; Hypochromasia 1+; Ovalocytes Few; Platelet Estimate Consistent w Auto
[2018-08-16 06:31] LABS: Basophils % (Auto) 0.2 % (0.0-1.8); Eosinophils % (Auto) 0.5 % (0.0-4.3); Hematocrit 33.6 % (30.3-42.9); Hemoglobin 10.9 gm/dl (10.1-14.3); Lymphocytes # (Auto) 0.8 K/mm3 (1.2-5.4); Lymphocytes % (Auto) 15.9 % (13.4-35.0); Mean Corpuscular HGB Conc 33 % (30-34); Mean Corpuscular Volume 90 fl (79-97); Monocytes # (Auto) 0.4 K/mm3 (0.0-0.8); Monocytes % (Auto) 8.3 % (0.0-7.3); Platelet Count 132 K/mm3 (140-440); Red Blood Count 3.72 M/mm3 (3.65-5.03); Red Cell Distribution Width 16.2 % (13.2-15.2)
[2018-08-16 06:50] LABS: BUN/Creatinine Ratio 22; Blood Urea Nitrogen 11 mg/dL (7-17); Calcium 7.8 mg/dL (8.4-10.2); Hemolysis Index 3
[2018-08-16] MEDS: K-DUR PO SCH (09:29)
[2018-08-16] MEDS: SODIUM CHLORIDE FLUSH SYRINGE 10 ML IV SCH ×2 (09:29→22:20)
[2018-08-16] MEDS: COLACE PO SCH ×3 (09:29→22:20)
--- NOTE | 2018-08-16 09:41 | Progress Note ---
Subjective - Reason for Consult Consult date: 08/16/18 Reason for consult: Psyhciatry Follow-up - Chief Complaint Chief complaint: 'Hello to you" 42-year-old Prydeinig Prydeinig female was found at a gas station exhibiting delusions. Today the patient is calm and cooperative during the assessment. She stated that she doesn't feel that she's nor had a miscarriage when asked. She stated that she saw a psychiatrist in the past Dr Yuen and took medication. She stated that she is homeless, but plan to go to a halfway ([facility]) when discharged. She denies SI/HI's and AVH's. She denies any side effects of her medication. Mental Status Exam - Vital signs Last Vital Signs Temp 97.8 F 08/15/18 23:03 Pulse 78 08/15/18 23:00 Resp 20 08/15/18 23:03 BP 104/69 08/15/18 23:03 Pulse Ox 98 08/15/18 23:00 - Exam Narrative exam: MSE: Appearance: calm, cooperative Behavior: regular eye contact Speech: regular rate and tone Mood: "okay" Affect: congruent to mood Thought Process: circumstantial Thought Content: denies SI/HI's and AVH's Motor Activity: sitting up in the bed Cognition: A/O x 3 Insight: variable to fair Judgment: variable to fair Assessment and Plan Impression: Unspecified Psychosis. Today the patient is calm and [id number] during the assessment. WBC 4.8. DDx: Schizophrenia Recommendation/Plan: Reevaluate the patient's 1013 in 24 hours. Continue Seroquel 100 mg PO HS for psychosis. Discussed possible metabolic side effects of Seroquel with the patient. Dispo: If the patient's 1013 is rescinded in 24 hours, she can follow up with [facility] for outpatient psy services. Will staff with Dr Natty Menjivar.
[2018-08-16] MEDS ORDERED: XYLOCAINE 1% 20 mL ONE (10:08)
--- NOTE | 2018-08-16 11:10 | Progress Note ---
Assessment and Plan Assessment and plan: 42 -year-old -Mongol[place] female with HIV/ AIDS who was last CD4 count was 4. She has a known history of ongoing cocaine abuse,noncompliant with antiretroviral medications, and an extensive psychiatric history who 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 She presented with a convoluted and confused story, disorganized thinking, hallucinating having pressured speech, and not making sense. consult pending, cont 1013. She's also complaining of right-sided paresthesias, numbness in her right foot, she has worsening neutropenia, abnormal findings in the CT of her brain. Case discussed with infectious disease. SIRS no organ dysfunction HIV/AIDS Non-adherence to antiretrovirals Cocaine intoxication and abuse Acute Psychosis Abnormal CT Head Neutropenia Hx Schizophrenia Hx Psychosis Plan: Urine culture- NGTD Blood cultures pending CT Head on 08/13 showed mild to moderate symmetric ventricular enlargement and white matter hypodensities, abnormal for patient of this age MRI brain on 08/13 showed global cortical atrophy disproportionate ventricular megaly suggesting normal pressure hydrocephalus. Extensive chronic white matter disease of uncertain etiology. Labs pending: CD4, HIV viral load, and CSF studies On Seroquel dose adjusted per ID consulted pt refused treatment- will attempt to see her again today Mental health consulted: " if the patient's 1013 is rescinded in 24 hours, she can follow up with [facility] for outpatient psy services LP scheduled for today Continue to monitor CBC Continue to monitor electrolytes and replace as needed DVT PPX on Lovenox History Interval history: Pt continues to refuse care and is verbally belligerent towards nursing staff. Hospitalist Physical - Physical exam Narrative exam: General appearance: Present: disheveled - EENT Eyes: Present: PERRL, EOM intact ENT: hearing intact, poor dentition - Neck Neck: Present: supple, normal ROM - Respiratory Respiratory effort: normal - Cardiovascular Rhythm: regular Heart Sounds: Present: S1 & S2 - Extremities Extremities: no ischemia Peripheral Pulses: within normal limits - Abdominal General gastrointestinal: Present: soft, non-tender, normal bowel sounds Female genitourinary: Present: deferred - Rectal Rectal Exam: deferred - Integumentary Integumentary: Present: warm, dry - Musculoskeletal Musculoskeletal: strength equal bilaterally - Psychiatric Psychiatric: uncooperative and agitated at times - Neurologic Neurologic: moves all extremities - Constitutional Vitals: Temp Pulse Resp BP Pulse Ox 97.8 F 78 20 104/69 98 08/15/18 23:03 08/15/18 23:00 08/15/18 23:03 08/15/18 23:03 08/15/18 23:00 General appearance: Present: disheveled Results - Labs CBC & Chem 7: 08/16/18 05:51 08/16/18 05:51 Labs: Laboratory Last Values WBC 4.8 K/mm3 (4.5-11.0) 08/16/18 05:51 RBC 3.72 M/mm3 (3.65-5.03) 08/16/18 05:51 Hgb 10.9 gm/dl (10.1-14.3) 08/16/18 05:51 Hct 33.6 % (30.3-42.9) 08/16/18 05:51 MCV 90 fl (79-97) 08/16/18 05:51 MCH 29 pg (28-32) 08/16/18 05:51 MCHC 33 % (30-34) 08/16/18 05:51 RDW 16.2 % (13.2-15.2) H 08/16/18 05:51 Plt Count 132 K/mm3 (140-440) L 08/16/18 05:51 Lymph % (Auto) 15.9 % (13.4-35.0) 08/16/18 05:51 Worth % (Auto) 8.3 % (0.0-7.3) H 08/16/18 05:51 Eos % (Auto) 0.5 % (0.0-4.3) 08/16/18 05:51 Baso % (Auto) 0.2 % (0.0-1.8) 08/16/18 05:51 Lymph # 0.8 K/mm3 (1.2-5.4) L 08/16/18 05:51 Worth # 0.4 K/mm3 (0.0-0.8) 08/16/18 05:51 Eos # 0.0 K/mm3 (0.0-0.4) 08/16/18 05:51 Baso # 0.0 K/mm3 (0.0-0.1) 08/16/18 05:51 Add Manual Diff Complete 08/15/18 10:23 Total Counted 100 08/15/18 10:23 Seg Neutrophils % 75.1 % (40.0-70.0) H 08/16/18 05:51 Seg Neuts % (Manual) 54.0 % (40.0-70.0) 08/15/18 10:23 Band Neutrophils % 0 % 08/15/18 10:23 Lymphocytes % (Manual) 31.0 % (13.4-35.0) 08/15/18 10:23 Reactive Lymphs % (Man) 0 % 08/15/18 10:23 Monocytes % (Manual) 15.0 % (0.0-7.3) H 08/15/18 10:23 Eosinophils % (Manual) 0 % (0.0-4.3) 08/15/18 10:23 Basophils % (Manual) 0 % (0.0-1.8) 08/15/18 10:23 Metamyelocytes % 0 % 08/15/18 10:23 Myelocytes % 0 % 08/15/18 10:23 Promyelocytes % 0 % 08/15/18 10:23 Blast Cells % 0 % 08/15/18 10:23 Nucleated RBC % Not Reportable 08/15/18 10:23 Seg Neutrophils # 3.6 K/mm3 (1.8-7.7) 08/16/18 05:51 Seg Neutrophils # Man 1.0 K/mm3 (1.8-7.7) L 08/15/18 10:23 Band Neutrophils # 0.0 K/mm3 08/15/18 10:23 Lymphocytes # (Manual) 0.6 K/mm3 (1.2-5.4) L 08/15/18 10:23 Abs React Lymphs (Man) 0.0 K/mm3 08/15/18 10:23 Monocytes # (Manual) 0.3 K/mm3 (0.0-0.8) 08/15/18 10:23 Eosinophils # (Manual) 0.0 K/mm3 (0.0-0.4) 08/15/18 10:23 Basophils # (Manual) 0.0 K/mm3 (0.0-0.1) 08/15/18 10:23 Metamyelocytes # 0.0 K/mm3 08/15/18 10:23 Myelocytes # 0.0 K/mm3 08/15/18 10:23 Promyelocytes # 0.0 K/mm3 08/15/18 10:23 Blast Cells # 0.0 K/mm3 08/15/18 10:23 WBC Morphology Not Reportable 08/15/18 10:23 Hypersegmented Neuts Not Reportable 08/15/18 10:23 Hyposegmented Neuts Not Reportable 08/15/18 10:23 Hypogranular Neuts Not Reportable 08/15/18 10:23 Smudge Cells Not Reportable 08/15/18 10:23 Toxic Granulation Not Reportable 08/15/18 10:23 Toxic Vacuolation Not Reportable 08/15/18 10:23 Dohle Bodies Not Reportable 08/15/18 10:23 Pelger-Huet Anomaly Not Reportable 08/15/18 10:23 Brenden Rods Not Reportable 08/15/18 10:23 Platelet Estimate Consistent w auto 08/15/18 10:23 Clumped Platelets Not Reportable 08/15/18 10:23 Plt Clumps, EDTA Not Reportable 08/15/18 10:23 Large Platelets Not Reportable 08/15/18 10:23 Giant Platelets Not Reportable 08/15/18 10:23 Platelet Satelliting Not Reportable 08/15/18 10:23 Plt Morphology Comment Not Reportable 08/15/18 10:23 RBC Morphology Not Reportable 08/15/18 10:23 Dimorphic RBCs Not Reportable 08/15/18 10:23 Polychromasia Not Reportable 08/15/18 10:23 Hypochromasia 1+ 08/15/18 10:23 Poikilocytosis Not Reportable 08/15/18 10:23 Anisocytosis 1+ 08/15/18 10:23 Microcytosis Not Reportable 08/15/18 10:23 Macrocytosis Not Reportable 08/15/18 10:23 Spherocytes Not Reportable 08/15/18 10:23 Pappenheimer Bodies Not Reportable 08/15/18 10:23 Sickle Cells Not Reportable 08/15/18 10:23 Target Cells Not Reportable 08/15/18 10:23 Tear Drop Cells Not Reportable 08/15/18 10:23 Ovalocytes Few 08/15/18 10:23 Helmet Cells Not Reportable 08/15/18 10:23 [place] Bodies Not Reportable 08/15/18 10:23 [place] Rings Not Reportable 08/15/18 10:23 Jared Cells Not Reportable 08/15/18 10:23 Bite Cells Not Reportable 08/15/18 10:23 Crenated Cell Not Reportable 08/15/18 10:23 Elliptocytes Not Reportable 08/15/18 10:23 Acanthocytes (Spur) Not Reportable 08/15/18 10:23 Rouleaux Not Reportable 08/15/18 10:23 Hemoglobin C Crystals Not Reportable 08/15/18 10:23 Schistocytes Not Reportable 08/15/18 10:23 Malaria parasites Not Reportable 08/15/18 10:23 Prashant Bodies Not Reportable 08/15/18 10:23 Hem Pathologist Commnt No 08/15/18 10:23 PT 12.1 Sec. (12.2-14.9) L 08/13/18 08:18 INR 0.85 (0.87-1.13) L 08/13/18 08:18 APTT 33.0 Sec. (24.2-36.6) 08/13/18 08:18 Sodium 144 mmol/L (137-145) 08/16/18 05:51 Potassium 3.9 mmol/L (3.6-5.0) 08/16/18 05:51 Chloride 112.4 mmol/L (98-107) H 08/16/18 05:51 Carbon Dioxide 20 mmol/L (22-30) L 08/16/18 05:51 Anion Gap 16 mmol/L 08/16/18 05:51 BUN 11 mg/dL (7-17) 08/16/18 05:51 Creatinine 0.5 mg/dL (0.7-1.2) L 08/16/18 05:51 Estimated GFR > 60 ml/min 08/16/18 05:51 BUN/Creatinine Ratio 22 % 08/16/18 05:51 Glucose 95 mg/dL (65-100) 08/16/18 05:51 Lactic Acid 0.60 mmol/L (0.7-2.0) L 08/13/18 08:18 Calcium 7.8 mg/dL (8.4-10.2) L 08/16/18 05:51 Magnesium 1.60 mg/dL (1.7-2.3) L 08/16/18 05:51 Total Bilirubin 0.30 mg/dL (0.1-1.2) 08/13/18 08:18 Direct Bilirubin < 0.2 mg/dL (0-0.2) 08/13/18 08:18 Indirect Bilirubin 0.1 mg/dL 08/13/18 08:18 AST 101 units/L (5-40) H 08/13/18 08:18 ALT 37 units/L (7-56) 08/13/18 08:18 Alkaline Phosphatase 139 units/L (35-129) H 08/13/18 08:18 Total Creatine Kinase 89 units/L (30-135) 08/13/18 08:18 CK-MB (CK-2) 4.3 ng/mL (0.0-4.0) H 08/13/18 08:18 CK-MB (CK-2) Rel Index 4.8 (0-4) H 08/13/18 08:18 Total Protein 7.2 g/dL (6.3-8.2) 08/13/18 08:18 Albumin 3.2 g/dL (3.9-5) L 08/13/18 08:18 Albumin/Globulin Ratio 0.8 % 08/13/18 08:18 HCG, Qual Negative (Negative) 08/13/18 04:21 Urine Color [place] (Yellow) 08/13/18 03:00 Urine Turbidity Clear (Clear) 08/13/18 03:00 Urine pH 5.0 (5.0-7.0) 08/13/18 03:00 Ur Specific [place] 1.039 (1.003-1.030) H 08/13/18 03:00 Urine Protein 100 mg/dl mg/dL (Negative) 08/13/18 03:00 Urine Glucose (UA) Neg mg/dL (Negative) 08/13/18 03:00 Urine Ketones Neg mg/dL (Negative) 08/13/18 03:00 Urine Blood Neg (Negative) 08/13/18 03:00 Urine Nitrite Neg (Negative) 08/13/18 03:00 Urine Bilirubin Neg (Negative) 08/13/18 03:00 Urine Urobilinogen 4.0 mg/dL (<2.0) 08/13/18 03:00 Ur Leukocyte Esterase Tr (Negative) 08/13/18 03:00 Urine WBC (Auto) 9.0 /HPF (0.0-6.0) H 08/13/18 03:00 Urine RBC (Auto) 7.0 /HPF (0.0-6.0) 08/13/18 03:00 U Epithel Cells (Auto) 20.0 /HPF (0-13.0) H 08/13/18 03:00 Urine Bacteria (Auto) 1+ /HPF (Negative) 08/13/18 03:00 Urine Mucus Few /HPF 08/13/18 03:00 Salicylates < 0.3 mg/dL (2.8-20.0) L 08/13/18 02:08 Urine Opiates Screen Presumptive negative 08/13/18 03:00 Urine Methadone Screen Presumptive negative 08/13/18 03:00 Acetaminophen < 5.0 ug/mL (10.0-30.0) L 08/13/18 02:08 Ur Barbiturates Screen Presumptive negative 08/13/18 03:00 Ur Phencyclidine Scrn Presumptive negative 08/13/18 03:00 Ur Amphetamines Screen Presumptive negative 08/13/18 03:00 U Benzodiazepines Scrn Presumptive negative 08/13/18 03:00 Urine Cocaine Screen Presumptive positive 08/13/18 03:00 U Marijuana (THC) Screen Presumptive negative 08/13/18 03:00 Drugs of Abuse Note Disclamer 08/13/18 03:00 Plasma/Serum Alcohol < 0.01 % (0-0.07) 08/13/18 02:08 RPR Nonreactive (Nonreactive) 08/13/18 17:40 Active Medications - Current Medications Current Medications: Generic Name Dose Route Start Last Admin Trade Name Freq PRN Reason Stop Dose Admin Acetaminophen 650 mg 08/13/18 11:12 Tylenol PO Q4H PRN Pain MILD(1-3)/Fever >100.5/CORRAL Docusate Sodium 100 mg 08/13/18 22:00 08/16/18 09:29 Colace PO 100 mg BID ANISA Administration Magnesium Sulfate 4 gm in 100 mls @ 25 mls/hr 08/16/18 12:00 Magnesium Sulfate 4gm/100ml IV 08/16/18 15:59 ONCE ONE Ibuprofen 600 mg 08/13/18 11:12 Motrin PO Q6H PRN Pain, Mild (1-3) Olanzapine 5 mg 08/13/18 19:10 Zyprexa Zydis PO Q6H PRN Agitation Ondansetron HCl 4 mg 08/13/18 11:12 Zofran IV Q8H PRN Nausea And Vomiting Potassium Chloride 20 meq 08/14/18 10:00 08/16/18 09:29 K-Dur PO 20 meq QDAY ANISA Administration Quetiapine Fumarate 100 mg 08/15/18 22:00 08/15/18 22:46 Seroquel PO 100 mg QHS ANISA Administration Sodium Chloride 10 ml 08/13/18 22:00 08/16/18 09:29 Sodium Chloride Flush Syringe 10 Ml IV 10 ml BID ANISA Administration Sodium Chloride 10 ml 08/13/18 11:12 Sodium Chloride Flush Syringe 10 Ml IV PRN PRN LINE FLUSH
[2018-08-16] MEDS ORDERED: MAGNESIUM SULFATE 4GM/100ML 4 GM/100 ML BAG IV ONE (12:00)
[2018-08-16 12:37] LABS: Appearance,CSF Clear; Red Blood Cell,CSF 8 /mm3 (0-0); White Blood Cell,CSF 1 /mm3 (1-10)
[2018-08-16] MEDS: MAG-OX PO SCH (12:45)
[2018-08-16 15:08] LABS: Total Cells Counted 1 /mm3
--- NOTE | 2018-08-16 16:27 | Consultation ---
History of Present Illness - Reason for Consult Consult date: 08/16/[address] head/HIV/AIDS Requesting physician: CLAUDETTE NESBITT - History of Present Illness 42 y/o female with history of Schiophrenia, cocaine use, Etoh use, HIV since 1999, unknown CD4/VL, non compliance with ART, chronic neutropenia, previous PJP, condyloma acuminata, oral candidiasis, used to follow with [facility], off ART for over a year due to intolerance with nausea and vomiting, admitted on 08/13/2018 due to be found at a gas station exhibiting delusions. Patient was yelling that she just had a miscarriage although the patient did not show any evidence of being . Upon admission she continued with paranoid delusion "she is in here trying to kill my baby. I'm . They're going to kill you when you leave." She was using cocaine and licor 2 days before admission. Lives with mother. In the ED, temp 97.6, HR 86, R 20, O2 sat 100%, BP 118/83. WBC 2, Hg 10.9, Plat 151. Creat 0.6. AST 101, ALT 37, Alphos 139. UA 9wbc, trace LE.. UAD +cocaine. Urine culture 08/13/2018 10-100K mixed colonies. CT head showed mild to moderate symmetric ventricular enlargement and white matter hypodensity abnormal to her age ?central atrophy vs hydrocephalus. Brain MRI showed global cortical atrophy and disproportionated ventriculomegaly c/w normal pressure hydrocephalus. Ex tensive chronic white matter disease. Of note, patient refused interview and exam on 08/13/18. Review of Systems: limted patient anxious with paranoid delusions General: no fever, chills, nightsweats, + unintentional weight loss Cutaneous: no rash, pruritus Head: no headaches or injury Eyes: no changes in vision, eye pain, double vision Ears: no ear pain, ear discharge, ringing or hearing loss Nose: no nose bleeding, stuffiness Mouth & throat: no bleeding gums, no horseness, no dental problems, or swollen glands Neck: no pain, node enlargement/lumps, tyroid enlargement or tenderness Respiratory: no cough, wheezing, sputum, hemoptysis, pleuritic chest pain Cardiovascular: no chest pain, leg edema, cyanosis, SINHA, orthopnea Musculoskeletal: no decreased joint motion, bone or joint pain, joint swelling, muscle aches Gastrointestinal: no nausea, vomiting, hematemesis, diarrhea, constipation, melena, bright red blood in stools, fecal incontinence, jaundice Genitourinary/Reproductive: no frequent urination, dysuria, hematuria, incontinence Neurogical: no seizures, no headaches, no weakness, no paresthesias, no loss of speech or vision; no memory loss, no vertigo, no tremors, no numbness Psychiatric: +anxious. Past History Past Medical History: HIV/AIDS Past Surgical History: No surgical history Social history: no significant social history Family history: no significant family history Medications and Allergies Allergies Allergy/AdvReac Type Severity Reaction Status Date / Time No Known Allergies Allergy Verified 10/25/15 16:36 Home Medications Medication Instructions Recorded Confirmed Last Taken Type Doxycycline [Vibramycin CAP] 100 mg PO Q12HR #14 capsule 03/31/18 08/13/18 Unknown Rx Ibuprofen [Motrin] 600 mg PO Q8H PRN #20 tablet 03/31/18 08/13/18 Unknown Rx Terbinafine (Nf) [LamiSIL] 250 mg PO QDAY 90 Days tablet 03/31/18 08/13/18 Unknown Rx Active Meds: Active Medications Acetaminophen (Tylenol) 650 mg PO Q4H PRN PRN Reason: Pain MILD(1-3)/Fever >100.5/CORRAL Docusate Sodium (Colace) 100 mg PO BID [facility], [facility] Last Admin: 08/16/18 09:29 Dose: 100 mg Documented by: Ibuprofen (Motrin) 600 mg PO Q6H PRN PRN Reason: Pain, Mild (1-3) Magnesium Oxide (Mag-Ox) 400 mg PO QDAY [facility], [facility] Last Admin: 08/16/18 12:45 Dose: 400 mg Documented by: Olanzapine (Zyprexa Zydis) 5 mg PO Q6H PRN PRN Reason: Agitation Ondansetron HCl (Zofran) 4 mg IV Q8H PRN PRN Reason: Nausea And Vomiting Potassium Chloride (K-Dur) 20 meq PO QDAY [facility] Last Admin: 08/16/18 09:29 Dose: 20 meq Documented by: Quetiapine Fumarate (Seroquel) 100 mg PO QHS [facility], [facility] Last Admin: 08/15/18 22:46 Dose: 100 mg Documented by: Sodium Chloride (Sodium Chloride Flush Syringe 10 Ml) 10 ml IV BID ANISA Last Admin: 08/16/18 09:29 Dose: 10 ml Documented by: Sodium Chloride (Sodium Chloride Flush Syringe 10 Ml) 10 ml IV PRN PRN PRN Reason: LINE FLUSH Physical Examination - Physical Exam Narrative exam: General appearance: Alert in NAD, conversant +anxious Eyes: anicteric sclerae, moist conjunctivae; no lid-lag; PERRLA HENT: Atraumatic; oropharynx clear with moist mucous membranes and no mucosal ulcerations/no oral thrush; normal hard and soft palate. Normal external ears. Neck: Trachea midline; supple, no thyromegaly or lymphadenopathy Lungs: CTA, with normal respiratory effort and no intercostal retractions CV: RRR Abdomen: Soft, non-tender; no masses or hepatosplenomegaly Extremities: No peripheral edema or extremity lymphadenopathy Skin: perianal shallow small ulcers Psych: +anxious +parranoid delusions. Neuro: alert and oriented x 3. Moving all extermities - Constitutional Vitals: Vital Signs Temp Pulse Resp BP Pulse Ox 97.8 F 78 20 104/69 98 08/15/18 23:03 08/15/18 23:00 08/15/18 23:03 08/15/18 23:03 08/15/18 23:00 Temperature -Last 24 Hours Temperature 97.8 F Temperature 97.8 F Temperature 98.3 F Results - Labs CBC & Chem 7: 08/16/18 05:51 08/16/18 05:51 Labs: Abnormal lab results 08/16/18 08/16/18 Range/Units 05:51 05:51 RDW 16.2 H (13.2-15.2) % Plt Count 132 L (140-440) K/mm3 [place] % (Auto) 8.3 H (0.0-7.3) % Lymph # 0.8 L (1.2-5.4) K/mm3 Seg Neutrophils % 75.1 H (40.0-70.0) % Chloride 112.4 H (98-107) mmol/L Carbon Dioxide 20 L (22-30) mmol/L Creatinine 0.5 L (0.7-1.2) mg/dL Calcium 7.8 L (8.4-10.2) mg/dL Magnesium 1.60 L (1.7-2.3) mg/dL Assessment and Plan Cultures: Urine culture 08/13/2018 10-100K mixed colonies. Assessment: 42 y/o female with history of Schizophrenia, cocaine use, Etoh use, HIV since 20 00, unknown CD4/VL, non compliance with ART, chronic neutropenia, previous PJP, condyloma acuminata, oral candidiasis, used to follow with [facility], off ART for over a year due to intolerance with nausea and vomiting, admitted on 08/13/2018 due to be found paranoid delusions: -Acute encephalopathy: multifactorial ?cocaine-induced psychosis v/s HIV dementia v/s normal pressure hydrocephalus (NPH). CT head showed mild to moderate symmetric ventricular enlargement and white matter hypodensity abnormal to her age ?central atrophy vs hydrocephalus. Brain MRI showed global cortical atrophy and disproportionated ventriculomegaly c/w normal pressure hydrocephalus. Extensive chronic white matter disease. Of note, patient refused interview and exam on 08/13/18. S/p LP CSF showed wbc 1, glucose 52, protein 28, Gram no PMS no organisms. Cryptococcal antigen in serum negative. RPR negative hence I doubt neurosyphilis. -Elevated LFts: ? unclear etiology. ?drug-induced from seroquel or zyprexa v/s viral hepatitis. -Chronic neutropenia: from seroqueal v/s HIV myelosuppression v/s opportunistic infections like CMV/MAC Recommendations: - Neurology consult for NPH and AIDS - check CMV-PCR and EBV-PCR in CSF - f/u CSF VDRL - check B12, TSH, folate - check viral hepatitis panel - RUQ US - check toxoplasma IgG - check AFB-blood culture to r/o MAC - f/u CD4/VL - check quatiferon TB gold - patient educated about need for HIV clinic f/u and ART - Psych on board Will follow. Tomeka Jordan MD Infectious Diseases [facility] M [phone] O [phone]
[2018-08-17 00:19] LABS: Hepatitis C Virus Antibody Non-Reactive (NonReactive)
[2018-08-17 02:09] LABS: Hepatitis B Surface Antigen Non-Reactive (Negative)
[2018-08-17 04:23] VITALS: BP 106/76
[2018-08-17 07:11] LABS: Hematocrit 32.7 % (30.3-42.9); Hemoglobin 10.7 gm/dl (10.1-14.3); Mean Corpuscular HGB Conc 33 % (30-34); Mean Corpuscular Volume 91 fl (79-97); Platelet Count 128 K/mm3 (140-440); Red Blood Count 3.62 M/mm3 (3.65-5.03); Red Cell Distribution Width 16.2 % (13.2-15.2)
--- NOTE | 2018-08-17 07:43 | Procedure Note ---
Date of procedure: 08/16/18 Pre-op diagnosis: neuro deficit, HIV Post-op diagnosis: same Procedure: flouro guided lumbar puncture Findings: none Anesthesia: local Surgeon: GILBERT FOY Estimated blood loss: none Pathology: list (4 csf tubes) Specimen disposition: to lab Condition: stable Disposition: floor
--- NOTE | 2018-08-17 07:44 | Fluoroscopy Report ---
FLUOROSCOPY LUMBAR PUNCTURE History: Neurological deficit, HIV. Description of procedure: Informed consent was obtained. Sterile technique was utilized. 1% lidocaine for skin anesthesia. Using fluoroscopy guidance, lumbar puncture was performed at the L2-3 level. One fluoroscopic image was saved. There was spontaneous return of clear CSF. 4 CSF tubes totaling approximately 5 cc was collected and sent to the lab for analysis. No complications. Impression: Successful fluoroscopy-guided lumbar puncture.
[2018-08-17 07:56] LABS: BUN/Creatinine Ratio 26; Blood Urea Nitrogen 13 mg/dL (7-17); Calcium 8.6 mg/dL (8.4-10.2); Hemolysis Index 5
[2018-08-17 09:16] LABS: Anisocytosis 1+; Basophils % (Manual) 0 % (0.0-1.8); Eosinophils % (Manual) 0 % (0.0-4.3); Platelet Estimate Consistent w Auto; Total Cells Counted 50
--- NOTE | 2018-08-17 09:34 | Progress Note ---
Assessment and Plan Cultures: Urine culture 08/13/2018 10-100K mixed colonies. Assessment: 42 y/o female with history of Schizophrenia, cocaine use, Etoh use, HIV since 1999, unknown CD4/VL, non compliance with ART, chronic neutropenia, previous PJP, condyloma acuminata, oral candidiasis, used to follow with [facility], off ART for over a year due to intolerance with nausea and vomiting, admitted on 08/13/2018 due to be found paranoid delusions: -Acute encephalopathy: multifactorial ?cocaine-induced psychosis v/s HIV dementia v/s normal pressure hydrocephalus (NPH). CT head showed mild to moderate symmetric ventricular enlargement and white matter hypodensity abnormal to her age ?central atrophy vs hydrocephalus. Brain MRI showed global cortical atrophy and disproportionated ventriculomegaly c/w normal pressure hydrocephalus. Extensive chronic white matter disease. Of note, patient refused interview and exam on 08/13/18. S/p LP CSF showed wbc 1, glucose 52, protein 28, Gram no PMS no organisms. Cryptococcal antigen in serum negative. RPR negative hence I doubt neurosyphilis. -Elevated LFts: ? unclear etiology. ?drug-induced from seroquel or zyprexa v/s viral hepatitis. -Chronic neutropenia: from seroqueal v/s HIV myelosuppression v/s opportunistic infections like CMV/MAC Recommendations: - Neurology consult for NPH and AIDS - f/u CMV-PCR and EBV-PCR in CSF - f/u CSF VDRL - f/u RUQ US - f/u toxoplasma IgG - f/u AFB-blood culture to r/o MAC - f/u CD4/VL - f/u quatiferon TB gold - Psych on board Yudelka Wong NP [facility] M: [phone] O:[phone] Subjective Date of service: 08/17/18 Interval history: Patient seen and examined. Combative, confused and excessive use of profanity. Unclear thought pattern, not responding to questions appropriately. Objective - Exam Narrative Exam: General appearance: Alert in NAD, Anxious.. Confused. Eyes: anicteric sclerae, moist conjunctivae; no lid-lag; PERRLA HENT: Atraumatic; oropharynx clear with moist mucous membranes and no mucosal ulcerations/no oral thrush; normal hard and soft palate. Normal external ears. Neck: Trachea midline; supple, no thyromegaly or lymphadenopathy Lungs: CTA, with normal respiratory effort and no intercostal retractions CV: RRR Abdomen: Soft, non-tender; no masses or hepatosplenomegaly Extremities: No peripheral edema or extremity lymphadenopathy Skin: perianal shallow small ulcers Psych: +anxious +parranoid delusions. Neuro: alert, disoriented Moving all extermities - Constitutional Vitals: Vital Signs Temp Pulse Resp BP Pulse Ox 98.2 F 77 16 106/76 100 08/17/18 04:22 08/17/18 04:22 08/17/18 04:22 08/17/18 04:22 08/17/18 04:22 Temperature -Last 24 Hours Temperature 98.2 F Temperature 97.9 F Temperature 97.7 F - Labs CBC & Chem 7: 08/17/18 09:56 08/17/18 06:42 Labs: Abnormal lab results 08/17/18 08/17/18 Range/Units 06:41 06:42 WBC 1.7 L* (4.5-11.0) K/mm3 RBC 3.62 L (3.65-5.03) M/mm3 RDW 16.2 H (13.2-15.2) % Plt Count 128 L (140-440) K/mm3 Seg Neuts % (Manual) 72.0 H (40.0-70.0) % Seg Neutrophils # Man 1.2 L (1.8-7.7) K/mm3 Lymphocytes # (Manual) 0.4 L (1.2-5.4) K/mm3 Chloride 110.1 H (98-107) mmol/L Creatinine 0.5 L (0.7-1.2) mg/dL
--- NOTE | 2018-08-17 09:44 | Discharge Summary ---
<RICK DAVIS - Last Filed: 08/17/18 13:01> Providers - Providers Date of Admission: 08/13/18 11:13 Date of discharge: 08/17/18 Attending physician: MAGEN SWANSON MD 08/13/18 03:18 Consult to Mental Health [CONS] Urgent Reason For Exam: mental Health Assessment Place consult to:: mobile desktop manager Notified:: yes 08/13/18 11:17 Consult to Physician [CONS] Routine Comment: Consulting Provider: AMANDA CHAU Physician Instructions: Reason For Exam: Abnormal CT in pt with HIV/AIDS 08/15/18 13:04 Consult to Wound/ET Nurse [CONS] Routine Reason For Exam: wound eval [facility] Reason for admission: Abnormal CT Head, SIRS Condition: Fair Hospital course: 42 -year-old -Vietnamese female with HIV/ AIDS who was last CD4 count was 4. She has a known history of ongoing cocaine abuse,noncompliant with a ntiretroviral medications, and an extensive psychiatric history who 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 She presented with a convoluted and confused story, disorganized thinking, hallucinating having pressured speech, and not making sense. She's also complaining of right-sided paresthesias, numbness in her right foot, she has worsening neutropenia, abnormal findings in the CT of her brain. Case discussed with infectious disease. Pt initially refused ID treatment, and stated that she has been off ART for over a year due to intolerance with nausea and vomiting. Pt was placed prophylaxis on Bactrium per ID for PCP. CT Head on 08/13 showed mild to moderate symmetric ventricular enlargement and white matter hypodensities, abnormal for patient of this age. MRI brain on 08/13 showed global cortical atrophy disproportionate ventricular megaly suggesting normal pressure hydrocephalus. Extensive chronic white matter disease of uncertain etiology. Blood and urine cultures had NGTD. On 08/16 Pt underwent LP, preliminary results did not reveal any polymorphonuclear cells, mononuclear cells, or organisms. Hep A and Hep B core IgM are both non-reactive, and Hep B antigen and Hep C antibody are also non-reactive. She received IV and oral magnesium replacement. [facility] has rescinded 1013, and pt was advised to follow up with [facility] for Outpatient Psych Services. Discharge plannings has been discussed with pt and she verbalized understanding. Diagnosis SIRS no organ dysfunction HIV/AIDS Non-adherence to antiretrovirals Cocaine intoxication and abuse Acute Psychosis Abnormal CT Head Neutropenia Schizophrenia Hypomagnesemia Hx Psychosis Disposition: DC-01 TO HOME OR SELFCARE Time spent for discharge: 33 min Core Measure Documentation - Palliative Care Palliative Care/ Comfort Measures: Not Applicable - Core Measures Any of the following diagnoses?: none - VTE Discharge Requirements Deep Vein Thrombosis/Pulmonary Embolism Present on Admission: No Contraindication No Overlap Therapy order at DC: Not Indicated Exam - Physical Exam Narrative exam: General appearance: Present: disheveled - EENT Eyes: Present: PERRL, EOM intact ENT: hearing intact, poor dentition - Neck Neck: Present: supple, normal ROM - Respiratory Respiratory effort: normal - Cardiovascular Rhythm: regular Heart Sounds: Present: S1 & S2 - Extremities Extremities: no ischemia Peripheral Pulses: within normal limits - Abdominal General gastrointestinal: Present: soft, non-tender, normal bowel sounds Female genitourinary: Present: deferred - Rectal Rectal Exam: deferred - Integumentary Integumentary: Present: warm, dry - Musculoskeletal Musculoskeletal: strength equal bilaterally - Psychiatric Psychiatric: uncooperative and agitated at times - Neurologic Neurologic: moves all extremities - Constitutional Vitals: Temp Pulse Resp BP Pulse Ox 98.2 F 77 16 106/76 100 08/17/18 04:22 08/17/18 04:22 08/17/18 04:22 08/17/18 04:22 08/17/18 04:22 Plan Follow up with: KENJI GOLD MD [Primary Care Provider] - 7 Days [facility] [Outside] - 48 Hours Prescriptions: Sulfamethoxazole/Trimethoprim [Bactrim DS TAB] 1 each PO QDAY 30 Days #30 tablet Potassium Chloride [K-Dur] 20 meq PO QDAY 30 Days #30 tablet Magnesium Oxide [Mag-Ox] 400 mg PO QDAY 30 Days #30 tablet Quetiapine Fumarate [Seroquel] 100 mg PO HS 30 Days #30 tablet <MAGEN SWANSON - Last Filed: 08/18/18 17:03> Providers - Providers Date of Admission: 08/13/18 11:13 Attending physician: MAGEN SWANSON MD 08/13/18 03:18 Consult to Mental Health [CONS] Urgent Reason For Exam: mental Health Assessment Place consult to:: mobile desktop manager Notified:: yes 08/13/18 11:17 Consult to Physician [CONS] Routine Comment: Consulting Provider: AMANDA CHAU Physician Instructions: Reason For Exam: Abnormal CT in pt with HIV/AIDS 08/15/18 13:04 Consult to Wound/ET Nurse [CONS] Routine Reason For Exam: wound eval 08/17/18 11:51 Consult to Physician [CONS] Routine Comment: Consulting Provider: MAYA MCCORMICK Physician Instructions: Reason For Exam: NPH Primary care physician: [facility] Hospitalization Hospital course: I saw and evaluated the patient. I agree with the findings and the plan of care as documented in the Nurse Practitioner's rick Davis note. Patient is non- complaint with treatment and psych recommend O/P follow up. she refused all the treatments and nothing much we can do from medical point of view. Exam - Constitutional Vitals: Temp Pulse Resp BP Pulse Ox 98.2 F 77 16 106/76 100 08/17/18 04:22 08/17/18 04:22 08/17/18 04:22 08/17/18 04:22 08/17/18 04:22
[2018-08-17] MEDS ORDERED: BACTRIM DS PO SCH (10:00)
[2018-08-17] MEDS: MAG-OX PO SCH (10:00)
[2018-08-17 10:13] LABS: Basophils % (Auto) 0.2 % (0.0-1.8); Eosinophils % (Auto) 0.7 % (0.0-4.3); Hematocrit 33.9 % (30.3-42.9); Hemoglobin 10.9 gm/dl (10.1-14.3); Lymphocytes # (Auto) 0.5 K/mm3 (1.2-5.4); Lymphocytes % (Auto) 13.5 % (13.4-35.0); Mean Corpuscular HGB Conc 32 % (30-34); Mean Corpuscular Volume 91 fl (79-97); Monocytes # (Auto) 0.3 K/mm3 (0.0-0.8); Platelet Count 130 K/mm3 (140-440); Red Blood Count 3.73 M/mm3 (3.65-5.03); Red Cell Distribution Width 16.1 % (13.2-15.2)
--- NOTE | 2018-08-17 10:21 | Progress Note ---
Subjective - Reason for Consult Consult date: 08/17/18 Reason for consult: Psychiatry Follow-up - Chief Complaint Chief complaint: 'I am doing well" 42-year-old Armenian Armenian female was found at a gas station exhibiting delusions. Today the patient is calm and cooperative during the assessment. She stated that she plan to check in with a local half-way. She stated that she do not have a psychiatrist and need a referral for outpatient psy services. She denies SI/HI's and AVH's. She denies any side effects of her medication. Mental Status Exam - Vital signs Last Vital Signs Temp 98.2 F 08/17/18 04:22 Pulse 77 08/17/18 04:22 Resp 16 08/17/18 04:22 BP 106/76 08/17/18 04:22 Pulse Ox 100 08/17/18 04:22 - Exam Narrative exam: MSE: Appearance: calm, cooperative Behavior: regular eye contact Speech: regular rate and tone Mood: "okay" Affect: congruent to mood Thought Process: circumstantial Thought Content: denies SI/HI's and AVH's Motor Activity: sitting up in the bed Cognition: A/O x 3 Insight: fair Judgment: fair Assessment and Plan Impression: Unspecified Psychosis. Today the patient is calm and [id number] during the assessment. WBC 4.8. The patient's psychosis has resolved. DDx: Schizophrenia Recommendation/Plan: Rescind 1013. Continue Seroquel 100 mg PO HS for psychosis. Discussed possible metabolic side effects of Seroquel with the patient. Dispo: The patient can follow up with [facility] for outpatient psy services. Will staff with Dr Natty Menjivar.
[2018-08-17] MEDS: SODIUM CHLORIDE FLUSH SYRINGE 10 ML IV SCH (10:30)
[2018-08-17] MEDS: K-DUR PO SCH (10:30)
[2018-08-17] MEDS: COLACE PO SCH (10:30)
[2018-08-17] MEDS ORDERED: GEODON IM PRN (11:49)
[2018-08-17 13:32] LABS: CD4/CD8 Ratio 0.01 (0.86-5.00)
[2018-08-17 16:26] LABS: HIV-1 RNA QN PCR 6.01 Log cps/mL
== END 2018-08-17 13:51 | disposition home or self-care (01) | DRG 57 ==
LOC: ED 01:44 → 3A 11:13
PROVIDERS: ADMIT Internal Medicine; ATTEND Internal Medicine
PROC: 009U3ZZ Drainage of Spinal Canal, Percutaneous Approach (ICD-10-PCS; principal; 2018-08-16)
PROC: B01B1ZZ Fluoroscopy of Spinal Cord using Low Osmolar Contrast (ICD-10-PCS; 2018-08-16)
DX: G91.2 (Idiopathic) normal pressure hydrocephalus (principal); B20 Human immunodeficiency virus [HIV] disease; R65.10 Systemic inflammatory response syndrome (SIRS) of non-infectious origin without acute organ dysfunction; D70.9 Neutropenia, unspecified; F14.129 Cocaine abuse with intoxication, unspecified; F20.9 Schizophrenia, unspecified; E83.42 Hypomagnesemia; Z91.14 Patient's other noncompliance with medication regimen; Z79.899 Other long term (current) drug therapy
CPT/HCPCS: 36415; 62270; 70450; 70551; 77003; 80048; 80074; 80076; 80307; 80320; 81001; 82024; 82140; 82550; 82553; 82747; 82947; 83735; 84160; 84425; 84443; 84703; 85007; 85025; 85610; 85730; 86403; 86592; 87086; 87116; 87497; 87498; 87536; 87799; 89051; 99406; G0378; G0480; J1650; J3475; J3486

== ENCOUNTER 2018-11-09 02:20 | Emergency (ER) | payer SELFPAY ==
[2018-11-09 02:33] VITALS: BP 111/75
[2018-11-09] MEDS ORDERED: IBUPROFEN PO ONE (07:58)
[2018-11-09] MEDS ORDERED: TRIPLE ANTIBIOTIC TP ONE (07:58)
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
== END 2018-11-09 08:22 | disposition home or self-care (01) ==
LOC: ED 02:20
DX: S70.211A Abrasion, right hip, initial encounter (principal); M79.10 Myalgia, unspecified site; F31.9 Bipolar disorder, unspecified; F20.9 Schizophrenia, unspecified; Z21 Asymptomatic human immunodeficiency virus [HIV] infection status; F17.200 Nicotine dependence, unspecified, uncomplicated; F14.10 Cocaine abuse, uncomplicated; Z79.4 Long term (current) use of insulin; Z79.899 Other long term (current) drug therapy; W17.89XA Other fall from one level to another, initial encounter; Y93.89 Activity, other specified; Y92.89 Other specified places as the place of occurrence of the external cause; Y99.8 Other external cause status
CPT/HCPCS: 99282; A6250

== ENCOUNTER 2018-11-25 12:02 | Emergency (ER) | payer OTHER ==
[2018-11-25 12:11] VITALS: BP 96/58
--- NOTE | 2018-11-25 12:11 | Emergency Department Report ---
Blank Doc - Documentation Documentation: This is a 43-year-old female that presents with right buttock and right hip open sores. This initial assessment/diagnostic orders/clinical plan/treatment(s) is/are subject to change based on patient's health status, clinical progression and re- assessment by fellow clinical providers in the ED. Further treatment and workup at subsequent clinical providers discretion. Patient/guardians urged not to elope from the ED as their condition may be serious if not clinically assessed and managed. Initial orders include: 1- Patient sent to [facility] for further evaluation and treatment 2- labs
== END 2018-11-25 13:35 ==
LOC: ED 12:02
DX: M79.674 Pain in right toe(s) (principal); Z53.21 Procedure and treatment not carried out due to patient leaving prior to being seen by health care provider

== ENCOUNTER 2018-11-26 00:28 | Emergency (ER) | payer OTHER ==
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
[2018-11-26 02:40] LABS: BUN/Creatinine Ratio 20; Blood Urea Nitrogen 10 mg/dL (7-17); Calcium 8.5 mg/dL (8.4-10.2); Hemolysis Index 3
[2018-11-26 02:45] LABS: Basophils % (Auto) 0.4 % (0.0-1.8); Eosinophils # (Auto) 0.1 K/mm3 (0.0-0.4); Eosinophils % (Auto) 2.2 % (0.0-4.3); Hemoglobin 9.8 gm/dl (10.1-14.3); Lymphocytes # (Auto) 0.8 K/mm3 (1.2-5.4); Mean Corpuscular HGB Conc 33 % (30-34); Mean Corpuscular Volume 87 fl (79-97); Monocytes # (Auto) 0.3 K/mm3 (0.0-0.8); Monocytes % (Auto) 12.6 % (0.0-7.3); Platelet Count 119 K/mm3 (140-440); Red Blood Count 3.45 M/mm3 (3.65-5.03); Red Cell Distribution Width 17.4 % (13.2-15.2)
[2018-11-26] MEDS ORDERED: K-DUR PO ONE (02:57)
[2018-11-26] MEDS ORDERED: NACL 0.9% 1000 ML 1,000 ML ONE (03:30)
[2018-11-26] MEDS: KCL 10MEQ/100ML 10 MEQ/100 ML BAG IV SCH ×4 (03:35→06:57)
[2018-11-26] MEDS ORDERED: NACL 0.9% 1000 ML 1,000 ML IV ONE ×2 (03:38→05:57)
--- NOTE | 2018-11-26 12:21 | Consultation ---
History of Present Illness - Reason for Consult Consult date: 11/26/18 Reason for consult: Mental Health Evaluation Requesting physician: JULIEN CÁRDENAS Medications and Allergies Allergies Allergy/AdvReac Type Severity Reaction Status Date / Time No Known Allergies Allergy Verified 10/25/15 16:36 Home Medications Medication Instructions Recorded Confirmed Last Taken Type Magnesium Oxide [Mag-Ox] 400 mg PO QDAY 30 Days #30 tablet 08/17/18 Unknown Rx Potassium Chloride [K-Dur] 20 meq PO QDAY 30 Days #30 tablet 08/17/18 Unknown Rx Quetiapine Fumarate [Seroquel] 100 mg PO HS 30 Days #30 tablet 08/17/18 Unknown Rx Sulfamethoxazole/Trimethoprim 1 each PO QDAY 30 Days #30 tablet 08/17/18 Unknown Rx [Bactrim DS TAB] Bacitracin/Polymyxin B Sulfate 1 applic TP BID #1 oint...g. 11/09/18 Unknown Rx [Bacitracin-Polymyxin Ointment] Ibuprofen [Motrin] 800 mg PO Q8HR #30 tablet 11/09/18 Unknown Rx cephALEXin [Keflex] 500 mg PO Q12HR #10 cap 11/09/18 Unknown Rx Past psychiatric history - Past Medical History Past Medical History: HIV/AIDS Past Surgical History: No surgical history Mental Status Exam - Vital signs Last Vital Signs Temp 97.6 F 11/26/18 08:46 Pulse 69 11/26/18 08:46 Resp 16 11/26/18 08:46 BP 121/89 11/26/18 08:46 Pulse Ox 100 11/26/18 08:46 Results Result Diagrams: 11/26/18 02:07 11/26/18 09:22 Abnormal lab results 11/26/18 11/26/18 Range/Units 02:07 02:07 WBC 2.4 L (4.5-11.0) K/mm3 RBC 3.45 L (3.65-5.03) M/mm3 Hgb 9.8 L (10.1-14.3) gm/dl Hct 30.0 L (30.3-42.9) % RDW 17.4 H (13.2-15.2) % Plt Count 119 L (140-440) K/mm3 [place] % (Auto) 12.6 H (0.0-7.3) % Lymph # 0.8 L (1.2-5.4) K/mm3 Seg Neutrophils # 1.2 L (1.8-7.7) K/mm3 Potassium 2.7 L* (3.6-5.0) mmol/L Creatinine 0.5 L (0.7-1.2) mg/dL All other labs normal.
[2018-11-26 13:32] LABS: Bilirubin,Urine NEG (Negative); Blood,Urine NEG (Negative); Color,Urine Yellow (Yellow); Protein,Urine <15 mg/dL mg/dL (Negative)
[2018-11-26 13:41] LABS: Amphetamine Screen,Urine PRESUMPTIVE NEGATIVE; Benzodiazepines Screen,Urine PRESUMPTIVE NEGATIVE; Cannabinoid Screen,Urine PRESUMPTIVE NEGATIVE; Methadone Screen,Urine PRESUMPTIVE NEGATIVE; Opiate Screen,Urine PRESUMPTIVE NEGATIVE
[2018-11-26 13:52] LABS: Cocaine Screen,Urine PRESUMPTIVE POSITIVE
--- NOTE | 2018-11-26 15:00 | Consultation ---
History of Present Illness - Reason for Consult Consult date: 11/26/18 Reason for consult: Mental Health Evaluation Requesting physician: JULIEN CÁRDENAS - Chief Complaint Chief complaint: "I am good' - History of Present Psychiatric Illness 43 y.o. AA female who presented to the ER for bizarre behavior. This patient is known to me. Today the patient was calm, but somewhat disorganized during the assessment. Her answers to most questions were not logical. She stated something about getting PNA and others things that were not relevant to the questions asked of her. Per the staff, the patient had a BM on the floor. Overall, the patient's insight is limited to poor at this time. No gestures of SI/HI's. Medications and Allergies Allergies Allergy/AdvReac Type Severity Reaction Status Date / Time No Known Allergies Allergy Verified 10/25/15 16:36 Home Medications Medication Instructions Recorded Confirmed Last Taken Type Magnesium Oxide [Mag-Ox] 400 mg PO QDAY 30 Days #30 tablet 08/17/18 Unknown Rx Potassium Chloride [K-Dur] 20 meq PO QDAY 30 Days #30 tablet 08/17/18 Unknown Rx Quetiapine Fumarate [Seroquel] 100 mg PO HS 30 Days #30 tablet 08/17/18 Unknown Rx Sulfamethoxazole/Trimethoprim 1 each PO QDAY 30 Days #30 tablet 08/17/18 Unknown Rx [Bactrim DS TAB] Bacitracin/Polymyxin B Sulfate 1 applic TP BID #1 oint...g. 11/09/18 Unknown Rx [Bacitracin-Polymyxin Ointment] Ibuprofen [Motrin] 800 mg PO Q8HR #30 tablet 11/09/18 Unknown Rx cephALEXin [Keflex] 500 mg PO Q12HR #10 cap 11/09/18 Unknown Rx Nitrofurantoin [place]/M-Cryst 100 mg PO Q12HR #14 capsule 11/26/18 Unknown Rx [Macrobid CAP] Active Meds: Active Medications Nitrofurantoin Macrocrystals (Macrobid) 100 mg PO Q12HR [facility] Past psychiatric history - Past Medical History Past Medical History: HIV/AIDS Past Surgical History: No surgical history Mental Status Exam - Vital signs Last Vital Signs Temp 97.6 F 11/26/18 08:46 Pulse 69 11/26/18 08:46 Resp 16 11/26/18 08:46 BP 121/89 11/26/18 08:46 Pulse Ox 100 11/26/18 08:46 - Exam Narrative exam: MSE: Appearance: calm Behavior: poor eye contact, head under the bed sheets Speech: regular rate and tone Mood: "okay" Affect: flat Thought Process: somewhat disorganized Thought Content: no gestures of SI/HI's Motor Activity: sitting up in the bed Cognition: A/O x 3 Insight: limited to poof Judgment: poor Results Result Diagrams: 11/26/18 02:07 11/26/18 09:22 Abnormal lab results 11/26/18 11/26/18 11/26/18 Range/Units 02:07 02:07 13:10 WBC 2.4 L (4.5-11.0) K/mm3 RBC 3.45 L (3.65-5.03) M/mm3 Hgb 9.8 L (10.1-14.3) gm/dl Hct 30.0 L (30.3-42.9) % RDW 17.4 H (13.2-15.2) % Plt Count 119 L (140-440) K/mm3 [place] % (Auto) 12.6 H (0.0-7.3) % Lymph # 0.8 L (1.2-5.4) K/mm3 Seg Neutrophils # 1.2 L (1.8-7.7) K/mm3 Potassium 2.7 L* (3.6-5.0) mmol/L Creatinine 0.5 L (0.7-1.2) mg/dL Urine WBC (Auto) 66.0 H (0.0-6.0) /HPF All other labs normal. Assessment and Plan Assessment and plan: Impression: Substance Induced Psychosis. Today the patient was calm, but somewhat disorganized during the assessment. WBC 2.4. DDx: Schizophrenia Recommendation/Plan: Conitue 1013 and start Seroquel 100 mg PO HS for psychosis. Attempted to discuss possible metabolic side effects of Seroquel with the patient. The benefits of Seroquel outweigh the risk at this time, the patient is psychotic. Her WBC is 2.4. Dispo: Once the patient is reassess in 24 hours, proper dispo will be determined. Staffed with Dr Natty Menjivar.
[2018-11-26] MEDS: MACROBID PO SCH ×2 (15:44→23:19)
[2018-11-27] MEDS: MACROBID PO SCH ×2 (14:14→22:04)
--- NOTE | 2018-11-27 16:53 | Progress Note ---
Subjective - Reason for Consult Consult date: 11/27/18 Reason for consult: follow up - Chief Complaint Chief complaint: "I have full blown AIDS." She found out 4 days ago at [place]. She also reports being at [place] recently. 43 y.o. AA female who presented to the ER for bizarre behavior. Today the patient was calm, minimally cooperative, and her thought process is disorganized. Her answers to most questions were not logical. She had a BM on the floor and in her bed. She is ambulatory and she prefers to clean herself, but she requiring prompting to clean herself. She reports being diagnosed with "full blown AIDS" 4 days ago at [place]. She refuses additional labs. WBC 2.4. She is uncooperative with further attempts to interview. Mental Status Exam Narrative exam: MSE: Appearance: calm Behavior: poor eye contact, head under the bed sheets Speech: minimal Mood: irritable Affect: flat Thought Process: disorganized Thought Content: no gestures of SI/HI's Motor Activity: no abnormal movements observed Cognition: A/O x 3 Insight: limited Judgment: poor Assessment and Plan Assessment and plan: Impression: Substance Induced Psychosis. She reports being diagnosed with "full blown AIDS" 4 days ago at [place]. She refuses additional labs. WBC 2.4. She is using diapers but states she is ambulatory. She is uncooperative with further attempts to interview. DDx: Schizophrenia, psychosis related to medical condition Recommendation/Plan: Continue 1013 and start Seroquel 100 mg PO HS for psychos is. Attempted to discuss possible metabolic side effects of Seroquel with the patient. The benefits of Seroquel outweigh the risk at this time, the patient is psychotic. Her WBC is 2.4. Dr. Fina Trivedi informed of her statement regarding AIDS. She is also not on retroviral therapy. Dispo: inpatient psychiatric treatment is planned. Staffed with Dr Natty Menjivar. Mental Status Exam - Vital signs Last Vital Signs Temp 97.9 F 11/27/18 08:29 Pulse 72 11/27/18 08:29 Resp 16 11/27/18 08:29 BP 127/85 11/27/18 08:29 Pulse Ox 99 11/27/18 08:29
[2018-11-28] MEDS: MACROBID PO SCH ×3 (10:51→21:50)
--- NOTE | 2018-11-28 19:04 | Progress Note ---
Subjective - Reason for Consult Consult date: 11/28/18 Reason for consult: follow up - Chief Complaint Chief complaint: "I have full blown AIDS." She found out 4 days ago at [place]. She also reports being at [place] recently. 43 y.o. AA female who presented to the ER for bizarre behavior. Today the patient was calm, minimally cooperative, and her thought process is disorganized. She reports being diagnosed with "full blown AIDS" at [place] prior to coming to [facility]. She refuses additional labs. WBC 2.4. She is agreeable to risperdal. She reports difficulty sleeping, "nausea and chest pain." She attributes her symptoms to the food. Her nurse was informed of her complaints. Mental Status Exam Narrative exam: MSE: Appearance: calm Behavior: poor eye contact, head under the bed sheets Speech: minimal Mood: irritable Affect: flat Thought Process: disorganized Thought Content: no gestures of SI/HI's Motor Activity: no abnormal movements observed Cognition: A/O x 3 Insight: limited Judgment: poor Assessment and Plan Assessment and plan: Impression: Substance Induced Psychosis. She reports being diagnosed with "full blown AIDS" at [place]. She refuses additional labs. WBC 2.4. She says she is able to use the bathroom and clean herself. Dr. Fina Trivedi informed of her statement regarding AIDS 11/27/2018. She is also not on retroviral therapy. DDx: Schizophrenia, psychosis related to medical condition Recommendation/Plan: Continue 1013. She prefers risperdal over seroquel. Risperdal 1mg hs will be started for psychotic symptoms. risks/benefits discussed, eps/nms/metabolic effects Dispo: inpatient psychiatric treatment is planned. Staffed with Dr Natty Menjivar. Mental Status Exam - Vital signs Last Vital Signs Temp 98.1 F 11/28/18 13:28 Pulse 75 11/28/18 13:28 Resp 16 11/28/18 13:28 BP 103/66 11/28/18 13:28 Pulse Ox 96 11/28/18 13:28
[2018-11-28] MEDS ORDERED: RisperDAL PO SCH (22:00)
[2018-11-29] MEDS: MACROBID PO SCH (10:19)
--- NOTE | 2018-11-29 11:35 | Progress Note ---
Subjective - Reason for Consult Consult date: 11/29/18 Reason for consult: Psychiatry Follow-up - Chief Complaint Chief complaint: "I would like to leave" 43 y.o. AA female who presented to the ER for bizarre behavior. Today the patient was calm and cooperative during the assessment. She stated that she plan to go to a friend's house once discharged. She acknowledged using cocaine prior to her arrival to the Er, she stated, 'I have to stop with the drugs." She denies SI/HI;s and AVH's. She denies any side effects of her medication. Mental Status Exam - Vital signs Last Vital Signs Temp 97.9 F 11/29/18 10:20 Pulse 87 11/29/18 10:20 Resp 18 11/29/18 10:20 BP 97/63 11/29/18 10:20 Pulse Ox 100 11/29/18 10:20 - Exam Narrative exam: MSE: Appearance: calm Behavior: regular eye contact Speech: regular rate and tone Mood: "okay" Affect: congruent to mood Thought Process: more organized Thought Content: denies SI/Hi's and AVH's Motor Activity: sitting up in the bed Cognition: A/O x 3 Insight: fair Judgment: fair Assessment and Plan Impression: Substance Induced Psychosis. Today the patient was calm during the assessment. WBC 2.4. DDx: Schizophrenia Recommendation/Plan: Rescind 1013 and continue Risperdal 1 mg PO HS for psychosis. Discussed possible metabolic side effects of Eooz2labxa with the patient, she verbalized understanding. Discussed the importance ti abstain from recreational drug use with the patinet, she verbalized understanding. Dispo: The patient can follow up with [facility] for outpatient psy/rehab services Will staff with Dr Natty Menjivar.
[2018-11-29 14:19] VITALS: BP 110/69
== END 2018-11-29 14:18 ==
LOC: EEVIPCON 00:28 → ED 00:28
DX: N39.0 Urinary tract infection, site not specified (principal); R46.1 Bizarre personal appearance; F25.0 Schizoaffective disorder, bipolar type; E87.6 Hypokalemia; F14.10 Cocaine abuse, uncomplicated; F17.200 Nicotine dependence, unspecified, uncomplicated; F32.9 Major depressive disorder, single episode, unspecified; Z98.890 Other specified postprocedural states; Z21 Asymptomatic human immunodeficiency virus [HIV] infection status; Z79.899 Other long term (current) drug therapy
CPT/HCPCS: 36415; 80048; 80307; 81001; 84132; 84703; 85025; 87086; 96365; 96366; 99284; J3480; J7030; 80320; G0480

== ENCOUNTER 2019-04-28 20:14 | Emergency (ER) | payer SELFPAY ==
--- NOTE | 2019-04-28 23:57 | Emergency Department Report ---
HPI - General Chief Complaint: Nausea/Vomiting/Diarrhea Time Seen by Provider: 04/28/19 23:26 - HPI HPI: Room 29 The patient is a 43-year-old female presenting with a chief complaint of vomiting. The patient says she was recently released from [facility]. Patient states she was used to [facility] food however [facility] she ate too much "real food" and it caused her to vomit 1 time. Patient states now feels better and denies complaints. Patient is eating chips during the interview Location: [See above] Duration: [See above] Quality: [See above] Severity: [See above] Timing: [See above] Context: [See above] Modifying factors: [See above] Associated signs and symptoms: [see above] ED Past Medical Hx - Past Medical History Hx Psychiatric Treatment: Yes (Bipolar,schizophrenia,depression) Hx HIV: Yes (on anti-virals) - Surgical History Additional Surgical History: x3. surgery for dislocated shoulder - Family History Family history: no significant - Social History Smoking Status: Current Every Day Smoker (1/7 Pack per day) Substance Use Type: Alcohol (none since November 2018), Cocaine (none since November 2018) - Medications Home Medications: Home Medications Medication Instructions Recorded Confirmed Last Taken Type Magnesium Oxide [Mag-Ox] 400 mg PO QDAY 30 Days #30 tablet 08/17/18 Unknown Rx Potassium Chloride [K-Dur] 20 meq PO QDAY 30 Days #30 tablet 08/17/18 Unknown Rx Quetiapine Fumarate [Seroquel] 100 mg PO HS 30 Days #30 tablet 08/17/18 Unknown Rx Sulfamethoxazole/Trimethoprim 1 each PO QDAY 30 Days #30 tablet 08/17/18 Unknown Rx [Bactrim DS TAB] Bacitracin/Polymyxin B Sulfate 1 applic TP BID #1 oint...g. 11/09/18 Unknown Rx [Bacitracin-Polymyxin Ointment] Ibuprofen [Motrin] 800 mg PO Q8HR #30 tablet 11/09/18 Unknown Rx cephALEXin [Keflex] 500 mg PO Q12HR #10 cap 11/09/18 Unknown Rx Nitrofurantoin [place]/M-Cryst 100 mg PO Q12HR #14 capsule 11/26/18 Unknown Rx [Macrobid CAP] Ondansetron [Zofran ODT TAB] 8 mg PO Q8HR #20 tab.rapdis 04/28/19 Unknown Rx ED Review of Systems ROS: Stated complaint: NV Other details as noted in HPI Constitutional: no symptoms reported Eyes: denies: eye pain ENT: denies: throat pain Respiratory: no symptoms reported Cardiovascular: denies: chest pain Endocrine: no symptoms reported Gastrointestinal: vomiting. denies: abdominal pain Genitourinary: denies: dysuria Musculoskeletal: denies: back pain Neurological: denies: headache Physical Exam - Physical Exam Vital Signs: Vital Signs 04/28/19 20:22 Temperature 98.6 F Pulse Rate 92 H Respiratory 18 Rate Blood Pressure 96/66 O2 Sat by Pulse 100 Oximetry Vital Signs 04/28/19 04/29/19 20:22 00:56 Temperature 98.6 F 98.2 F Pulse Rate 92 H 100 H Respiratory 18 18 Rate Blood Pressure 96/66 Blood Pressure 116/72 [Left] O2 Sat by Pulse 100 98 Oximetry Physical Exam: GENERAL: The patient is well-developed well-nourished female sitting in chair not appearing to be in acute distress. Eating chips without difficulty HEENT: Normocephalic. Atraumatic. Extraocular motions are intact. Patient has moist mucous membranes. NECK: Supple. Trachea midline CHEST/LUNGS: Clear to auscultation. There is no respiratory distress noted. HEART/CARDIOVASCULAR: Regular. There is no tachycardia. There is no gallop rub or murmur. ABDOMEN: Abdomen is soft, nontender. Patient has normal bowel sounds. There is no abdominal distention. SKIN: There is no rash. There is no edema. There is no diaphoresis. NEURO: The patient is awake, alert, and oriented. The patient is cooperative. The patient has normal speech MUSCULOSKELETAL: There is no evidence of acute injury. ED Course Vital Signs 04/28/19 20:22 Temperature 98.6 F Pulse Rate 92 H Respiratory 18 Rate Blood Pressure 96/66 O2 Sat by Pulse 100 Oximetry ED Medical Decision Making - Differential Diagnosis vomiting Critical care attestation.: If time is entered above; I have spent that time in minutes in the direct care of this critically ill patient, excluding procedure time. ED Disposition Clinical Impression: Vomiting Disposition: DC-01 TO HOME OR SELFCARE Is pt being admited?: No Does the pt Need Aspirin: No Condition: Stable Instructions: Acute Nausea and Vomiting (ED) Additional Instructions: Return to the emergency department should you develop worsening symptoms, inability to tolerate food or liquids, high fever or any other concerns Prescriptions: Ondansetron [Zofran ODT TAB] 8 mg PO Q8HR #20 tab.letty Referrals: [facility] [Outside] - 3-5 Days Time of Disposition: 01:01
[2019-04-29 00:57] VITALS: BP 116/72
== END 2019-04-29 01:05 | disposition home or self-care (01) ==
LOC: ED 20:14
DX: R11.2 Nausea with vomiting, unspecified (principal); F17.210 Nicotine dependence, cigarettes, uncomplicated; F14.10 Cocaine abuse, uncomplicated; Z98.890 Other specified postprocedural states; F32.89 Other specified depressive episodes; Z79.899 Other long term (current) drug therapy

== ENCOUNTER 2019-05-03 23:57 | Emergency (ER) | payer SELFPAY ==
[2019-05-04 03:11] LABS: Basophils % (Auto) 0.2 % (0.0-1.8); Eosinophils % (Auto) 0.2 % (0.0-4.3); Hemoglobin 9.6 gm/dl (10.1-14.3); Lymphocytes # (Auto) 0.9 K/mm3 (1.2-5.4); Lymphocytes % (Auto) 30.6 % (13.4-35.0); Monocytes # (Auto) 0.4 K/mm3 (0.0-0.8); Monocytes % (Auto) 14.6 % (0.0-7.3)
[2019-05-04 03:17] LABS: Hematocrit 29.4 % (30.3-42.9); Mean Corpuscular HGB Conc 33 % (30-34); Mean Corpuscular Volume 90 fl (79-97); Platelet Count 199 K/mm3 (140-440); Red Blood Count 3.26 M/mm3 (3.65-5.03); Red Cell Distribution Width 15.5 % (13.2-15.2)
[2019-05-04 03:41] LABS: Alanine Aminotransferase 45 units/L (7-56); Albumin 3.3 g/dL (3.9-5); BUN/Creatinine Ratio 18; Blood Urea Nitrogen 9 mg/dL (7-17); Calcium 8.2 mg/dL (8.4-10.2); Hemolysis Index 3
[2019-05-04] MEDS ORDERED: SODIUM CHLORIDE 0.9% 1000 ML 1,000 ML IV ONE (07:33)
[2019-05-04] MEDS ORDERED: ONDANSETRON 4 MG/2 ML INJ IV ONE (07:33)
[2019-05-04] MEDS ORDERED: MORPHINE 2 MG/1 ML INJ IV ONE (07:33)
--- NOTE | 2019-05-04 09:09 | Emergency Department Report ---
<LANI ESQUEDA - Last Filed: 05/04/19 12:13> ED Abdominal Pain HPI - General Chief Complaint: Nausea/Vomiting/Diarrhea Stated Complaint: DIARRHEA Time Seen by Provider: 05/04/19 07:16 Source: patient Mode of arrival: Wheelchair Limitations: No Limitations - History of Present Illness Initial Comments: This is a 43-year-old female nontoxic, well nourished in appearance, no acute signs of distress presents to the ED with c/o of intermittent nausea and abdominal pain and diarrhea 2 weeks. Patient denies any vomiting. Patient describes abdominal pain as cramping and aching with level of 8/10 diffuse. Patient denies chest pain, short of breath, fever, chills, headache, stiff neck, numbness or tingling. She denies any blood in stool. Patient denies any constipation. Patient denies any recent travels. Patient denies any drug allergies. Past medical history includes HIV. MD Complaint: abdominal pain -: week(s) Location: diffuse Radiation: none Migration to: no migration Severity: mild Severity scale (0 -10): 3 Quality: cramping, aching Consistency: intermittent Improves With: nothing Worsens With: nothing Associated Symptoms: nausea, diarrhea. denies: vomiting, fever, chills, constipation, dysuria, hematemesis, hematochezia, melena, hematuria, anorexia, syncope - Related Data Previous Rx's Medication Instructions Recorded Last Taken Type Magnesium Oxide [Mag-Ox] 400 mg PO QDAY 30 Days #30 tablet 08/17/18 Unknown Rx Potassium Chloride [K-Dur] 20 meq PO QDAY 30 Days #30 tablet 08/17/18 Unknown Rx Quetiapine Fumarate [Seroquel] 100 mg PO HS 30 Days #30 tablet 08/17/18 Unknown Rx Sulfamethoxazole/Trimethoprim 1 each PO QDAY 30 Days #30 tablet 08/17/18 Unknown Rx [Bactrim DS TAB] Bacitracin/Polymyxin B Sulfate 1 applic TP BID #1 oint...g. 11/09/18 Unknown Rx [Bacitracin-Polymyxin Ointment] Ibuprofen [Motrin] 800 mg PO Q8HR #30 tablet 11/09/18 Unknown Rx cephALEXin [Keflex] 500 mg PO Q12HR #10 cap 11/09/18 Unknown Rx Nitrofurantoin [place]/M-Cryst 100 mg PO Q12HR #14 capsule 11/26/18 Unknown Rx [Macrobid CAP] Ondansetron [Zofran ODT TAB] 8 mg PO Q8HR #20 tab.rapdis 04/28/19 Unknown Rx Ondansetron [Zofran Odt] 4 mg PO Q8HR PRN #20 tab.rapdis 05/04/19 Unknown Rx Sulfamethoxazole/Trimethoprim 1 each PO BID #14 tablet 05/04/19 Unknown Rx [Bactrim DS TAB] Allergies Allergy/AdvReac Type Severity Reaction Status Date / Time No Known Allergies Allergy Verified 10/25/15 16:36 ED Review of Systems Constitutional: denies: chills, fever Eyes: denies: eye pain, eye discharge, vision change ENT: denies: ear pain, throat pain Respiratory: denies: cough, shortness of breath, wheezing Cardiovascular: denies: chest pain, palpitations Endocrine: no symptoms reported Gastrointestinal: abdominal pain, nausea, diarrhea. denies: vomiting, constipation, hematemesis, melena, hematochezia Genitourinary: denies: urgency, dysuria, discharge Musculoskeletal: denies: back pain, joint swelling, arthralgia Skin: denies: rash, lesions Neurological: denies: headache, weakness, paresthesias Psychiatric: denies: anxiety, depression Hematological/Lymphatic: denies: easy bleeding, easy bruising ED Past Medical Hx - Past Medical History Hx Psychiatric Treatment: Yes (Bipolar,schizophrenia,depression) Hx HIV: Yes (on anti-virals) - Surgical History Past Surgical History?: Yes Additional Surgical History: x3. surgery for dislocated shoulder - Social History Smoking Status: Never Smoker - Medications Home Medications: Home Medications Medication Instructions Recorded Confirmed Last Taken Type Magnesium Oxide [Mag-Ox] 400 mg PO QDAY 30 Days #30 tablet 08/17/18 Unknown Rx Potassium Chloride [K-Dur] 20 meq PO QDAY 30 Days #30 tablet 08/17/18 Unknown Rx Quetiapine Fumarate [Seroquel] 100 mg PO HS 30 Days #30 tablet 08/17/18 Unknown Rx Sulfamethoxazole/Trimethoprim 1 each PO QDAY 30 Days #30 tablet 08/17/18 Unknown Rx [Bactrim DS TAB] Bacitracin/Polymyxin B Sulfate 1 applic TP BID #1 oint...g. 11/09/18 Unknown Rx [Bacitracin-Polymyxin Ointment] Ibuprofen [Motrin] 800 mg PO Q8HR #30 tablet 11/09/18 Unknown Rx cephALEXin [Keflex] 500 mg PO Q12HR #10 cap 11/09/18 Unknown Rx Nitrofurantoin [place]/M-Cryst 100 mg PO Q12HR #14 capsule 11/26/18 Unknown Rx [Macrobid CAP] Ondansetron [Zofran ODT TAB] 8 mg PO Q8HR #20 tab.rapdis 04/28/19 Unknown Rx Ondansetron [Zofran Odt] 4 mg PO Q8HR PRN #20 tab.rapdis 05/04/19 Unknown Rx Sulfamethoxazole/Trimethoprim 1 each PO BID #14 tablet 05/04/19 Unknown Rx [Bactrim DS TAB] ED Physical Exam - General Limitations: No Limitations General appearance: alert, in no apparent distress - Head Head exam: Present: atraumatic, normocephalic - Eye Eye exam: Present: normal appearance - Neck Neck exam: Present: normal inspection, full ROM. Absent: tenderness, meningismus, lymphadenopathy - Respiratory Respiratory exam: Present: normal lung sounds bilaterally. Absent: respiratory distress, wheezes, rales, rhonchi, stridor, chest wall tenderness, accessory muscle use, decreased breath sounds, prolonged expiratory - Cardiovascular Cardiovascular Exam: Present: regular rate, normal rhythm, normal heart sounds. Absent: bradycardia, tachycardia, irregular rhythm, systolic murmur, diastolic murmur, rubs, gallop - GI/Abdominal GI/Abdominal exam: Present: soft, tenderness (diffuse), normal bowel sounds. Absent: distended, guarding, rebound, rigid, diminished bowel sounds - Extremities Exam Extremities exam: Present: normal inspection, full ROM - Back Exam Back exam: Present: normal inspection, full ROM. Absent: tenderness, CVA tenderness (R), CVA tenderness (L), muscle spasm, paraspinal tenderness, vertebral tenderness, rash noted - Neurological Exam Neurological exam: Present: alert, oriented X3, normal gait - Psychiatric Psychiatric exam: Present: normal affect, normal mood - Skin Skin exam: Present: warm, dry, intact, normal color. Absent: rash ED Course - Reevaluation(s) Reevaluation #1: 05/04/19 09:12 Patient is speaking in full sentences with no signs of distress noted. ED Medical Decision Making - Lab Data Result diagrams: 05/04/19 02:55 05/04/19 02:55 - Medical Decision Making This is a 43-year-old female that presents with abdominal pain, nausea, diarrhea, and UTI. Patient is stable and was examined by me. There is no abdominal tenderness. Negative signs of symptoms of appendicitis. Labs obtained. UA obtained. CT of abdomen obtained and dictated by the radiologist. Patient is notified of the report with no questions noted by the patient. Vital signs are stable prior to discharge. Patient received medical treatment in the ED which patient stated symptoms has resovled and subsided. Was instructed note to operate any machinery due to possible drowsiness and stated someone will drive the patient home. A by mouth challenge has been obtained and patient tolerated well with no nausea vomiting. Patient was notified of strict precatuions of appendictis symptoms and to return to the ED if symptoms occurs as soon as possible. Patient was also instructed to Follow-up with a primary care doctor in 3-5 days or if symptoms worsen and continue return to emergency room as soon as possible. At time of discharge, the patient does not seem toxic or ill in appearance. No acute signs of distress noted. Patient agrees to discharge treatment plan of care. No further questions noted by the patient. ED Disposition Clinical Impression: Nausea Disposition: DC-01 TO HOME OR SELFCARE Is pt being admited?: No Does the pt Need Aspirin: No Condition: Stable Instructions: Acute Abdominal Pain (ED) Additional Instructions: Follow-up with a primary care and rn acls doctor in 3-5 days or if symptoms worsen and continue return to emergency room as soon as possible. Prescriptions: Sulfamethoxazole/Trimethoprim [Bactrim DS TAB] 1 each PO BID #14 tablet Ondansetron [Zofran Odt] 4 mg PO Q8HR PRN #20 tab.rapdis PRN Reason: Nausea Referrals: PRIMARY MD SUNDAY [Primary Care Provider] - 3-5 Days CHRISTOPHER DIAZ MD [Staff Physician] - 3-5 Days [facility] [Provider Group] - 3-5 Days [facility] [Outside] - 3-5 Days Forms: Work/School Release Form(ED) <MARVEL OROZCO - Last Filed: 05/06/19 07:06> ED Review of Systems ROS: Stated complaint: DIARRHEA Other details as noted in HPI ED Course Vital Signs 05/04/19 05/04/19 05/04/19 02:37 08:04 12:50 Temperature 98.8 F Pulse Rate 96 H 82 77 Respiratory 18 18 18 Rate Blood Pressure 115/69 Blood Pressure 106/75 125/70 [Left] O2 Sat by Pulse 95 100 98 Oximetry ED Medical Decision Making - Lab Data Result diagrams: 05/04/19 02:55 05/04/19 02:55 - Medical Decision Making Attestation: Available for consultation Critical care attestation.: If time is entered above; I have spent that time in minutes in the direct care of this critically ill patient, excluding procedure time. ED Disposition Is pt being admited?: No
--- NOTE | 2019-05-04 09:26 | Cat Scan Report ---
CT ABDOMEN AND PELVIS WITH CONTRAST INDICATION / CLINICAL INFORMATION: abd pain/n/diarrhea. TECHNIQUE: Axial CT images were obtained through the abdomen and pelvis after 100 cc Omnipaque 300 milligrams pe rcent IV contrast. All CT scans at this location are performed using CT dose reduction for ALARA by means of automated exposure control. COMPARISON: 03/16/2016. FINDINGS: LOWER CHEST: No significant abnormality. LIVER: No significant abnormality. GALLBLADDER: No significant abnormality. BILE DUCTS: No significant abnormality. PANCREAS: No significant abnormality. SPLEEN: No significant abnormality. ADRENALS: No significant abnormality. RIGHT KIDNEY and URETER: No significant abnormality. LEFT KIDNEY and URETER: No significant abnormality. STOMACH and SMALL BOWEL: No significant abnormality. COLON: Moderate amount of feces and air is present in the colon APPENDIX: No significant abnormality. PERITONEUM: No free fluid. No free air. No fluid collection. LYMPH NODES: No significant adenopathy. AORTA and ARTERIES: No significant abnormality. IVC and VEINS: No significant abnormality. URINARY BLADDER: No significant abnormality. REPRODUCTIVE ORGANS: No significant abnormality. ADDITIONAL FINDINGS: None. SKELETAL SYSTEM: No significant abnormality. IMPRESSION: 1. No significant abnormality. Signer Name: Flex Hogan MD Signed: 05/04/2019 9:22 AM Workstation Name: [id number]
[2019-05-04 11:29] LABS: Bacteria,Urine 4+ /HPF (Negative); Bilirubin,Urine NEG (Negative); Blood,Urine NEG (Negative); Color,Urine Yellow (Yellow); Mucus,Urine FEW /HPF
[2019-05-04 12:50] VITALS: BP 125/70
== END 2019-05-04 12:50 | disposition home or self-care (01) ==
LOC: ED 23:57
DX: N39.0 Urinary tract infection, site not specified (principal); F31.89 Other bipolar disorder; F20.89 Other schizophrenia; Z98.890 Other specified postprocedural states; Z79.899 Other long term (current) drug therapy
CPT/HCPCS: 36415; 74177; 80053; 81001; 83690; 84703; 85025; 96361; 96374; 96375; 99284; J2270; J2405; J7030; Q9967

== ENCOUNTER 2019-05-22 22:29 | Emergency (ER) | payer SELFPAY ==
[2019-05-22 23:22] LABS: Basophils % (Auto) 0.4 % (0.0-1.8); Eosinophils % (Auto) 0.2 % (0.0-4.3); Hematocrit 29.9 % (30.3-42.9); Hemoglobin 9.5 gm/dl (10.1-14.3); Lymphocytes # (Auto) 1.2 K/mm3 (1.2-5.4); Lymphocytes % (Auto) 34.4 % (13.4-35.0); Mean Corpuscular HGB Conc 32 % (30-34); Mean Corpuscular Volume 88 fl (79-97); Monocytes # (Auto) 0.5 K/mm3 (0.0-0.8); Monocytes % (Auto) 13.3 % (0.0-7.3); Platelet Count 195 K/mm3 (140-440); Red Cell Distribution Width 15.2 % (13.2-15.2)
[2019-05-22 23:45] LABS: Alanine Aminotransferase 41 units/L (7-56); Albumin 3.5 g/dL (3.9-5); BUN/Creatinine Ratio 17; Blood Urea Nitrogen 10 mg/dL (7-17); Calcium 8.7 mg/dL (8.4-10.2); Hemolysis Index 5
[2019-05-23 01:05] LABS: Bacteria,Urine 4+ /HPF (Negative); Bilirubin,Urine NEG (Negative); Blood,Urine SM (Negative); Calcium Oxalate Crystals,Urine 3+; Color,Urine Yellow (Yellow); Mucus,Urine 3+ /HPF
[2019-05-23 02:50] LABS: HCG Qualitative,Urine Positive (Negative)
[2019-05-23] MEDS ORDERED: NITROFURANTOIN MONOHYD/M-CRYST 100 MG CAP PO ONE (03:53)
--- NOTE | 2019-05-23 04:03 | XRay Report ---
CHEST 2 VIEWS INDICATION / CLINICAL INFORMATION: cough, aids. COMPARISON: None available. FINDINGS: SUPPORT DEVICES: None. HEART / MEDIASTINUM: No significant abnormality. LUNGS / PLEURA: No significant pulmonary or pleural abnormality. .No pneumothorax. ADDITIONAL FINDINGS: No significant additional findings. IMPRESSION: 1. No acute findings. Signer Name: Yasmany Islas MD Signed: 05/23/2019 3:59 AM Workstation Name: [id number]
--- NOTE | 2019-05-23 04:26 | Emergency Department Report ---
ED N/V/D HPI - General Chief complaint: Nausea/Vomiting/Diarrhea Stated complaint: DIARRHEA Time Seen by Provider: 05/23/19 02:13 Source: patient, EMS, old records reviewed Mode of arrival: Wheelchair Limitations: No Limitations - History of Present Illness Initial comments: 43-year-old female with a past medical history of HIV, bipolar, schizophrenia, and depression presents to the Hospital complaining of diarrhea on and off for 2 weeks. She also complains of nonproductive cough and sharp pain to bilateral feet with mouth swelling. Patient has not been on HIV medications since release from longterm in December. She reports to her CD4 count in December was 4. There is no current complaints of nausea, vomiting, hematochezia, melena, fever, or a bdominal pain. Patient states that her family kicked her out of the home today because she "eats too much" she has nowhere else to go at this time. She also complains of generalized pruritus and dysuria. - Related Data Previous Rx's Medication Instructions Recorded Last Taken Type Magnesium Oxide [Mag-Ox] 400 mg PO QDAY 30 Days #30 tablet 08/17/18 Unknown Rx Potassium Chloride [K-Dur] 20 meq PO QDAY 30 Days #30 tablet 08/17/18 Unknown Rx Quetiapine Fumarate [Seroquel] 100 mg PO HS 30 Days #30 tablet 08/17/18 Unknown Rx Sulfamethoxazole/Trimethoprim 1 each PO QDAY 30 Days #30 tablet 08/17/18 Unknown Rx [Bactrim DS TAB] Bacitracin/Polymyxin B Sulfate 1 applic TP BID #1 oint...g. 11/09/18 Unknown Rx [Bacitracin-Polymyxin Ointment] Ibuprofen [Motrin] 800 mg PO Q8HR #30 tablet 11/09/18 Unknown Rx cephALEXin [Keflex] 500 mg PO Q12HR #10 cap 11/09/18 Unknown Rx Ondansetron [Zofran ODT TAB] 8 mg PO Q8HR #20 tab.rapdis 04/28/19 Unknown Rx Ondansetron [Zofran Odt] 4 mg PO Q8HR PRN #20 tab.rapdis 05/04/19 Unknown Rx Sulfamethoxazole/Trimethoprim 1 each PO BID #14 tablet 05/04/19 Unknown Rx [Bactrim DS TAB] Nitrofurantoin [place]/M-Cryst 100 mg PO Q12HR #14 capsule 05/23/19 Unknown Rx [Macrobid CAP] Nystatin [Nystatin SUSP] 5 ml PO QID 14 Days ml 05/23/19 Unknown Rx Allergies Allergy/AdvReac Type Severity Reaction Status Date / Time No Known Allergies Allergy Verified 10/25/15 16:36 ED Review of Systems ROS: Stated complaint: DIARRHEA Other details as noted in HPI Comment: All other systems reviewed and negative ED Past Medical Hx - Past Medical History Previous Medical History?: Yes Hx Psychiatric Treatment: Yes (Bipolar,schizophrenia,depression) Hx HIV: Yes - Surgical History Past Surgical History?: Yes Additional Surgical History: x3. surgery for dislocated shoulder - Social History Smoking Status: Current Every Day Smoker Substance Use Type: Alcohol, Marijuana - Medications Home Medications: Home Medications Medication Instructions Recorded Confirmed Last Taken Type Magnesium Oxide [Mag-Ox] 400 mg PO QDAY 30 Days #30 tablet 08/17/18 Unknown Rx Potassium Chloride [K-Dur] 20 meq PO QDAY 30 Days #30 tablet 08/17/18 Unknown Rx Quetiapine Fumarate [Seroquel] 100 mg PO HS 30 Days #30 tablet 08/17/18 Unknown Rx Sulfamethoxazole/Trimethoprim 1 each PO QDAY 30 Days #30 tablet 08/17/18 Unknown Rx [Bactrim DS TAB] Bacitracin/Polymyxin B Sulfate 1 applic TP BID #1 oint...g. 11/09/18 Unknown Rx [Bacitracin-Polymyxin Ointment] Ibuprofen [Motrin] 800 mg PO Q8HR #30 tablet 11/09/18 Unknown Rx cephALEXin [Keflex] 500 mg PO Q12HR #10 cap 11/09/18 Unknown Rx Ondansetron [Zofran ODT TAB] 8 mg PO Q8HR #20 tab.rapdis 04/28/19 Unknown Rx Ondansetron [Zofran Odt] 4 mg PO Q8HR PRN #20 tab.rapdis 05/04/19 Unknown Rx Sulfamethoxazole/Trimethoprim 1 each PO BID #14 tablet 05/04/19 Unknown Rx [Bactrim DS TAB] Nitrofurantoin [place]/M-Cryst 100 mg PO Q12HR #14 capsule 05/23/19 Unknown Rx [Macrobid CAP] Nystatin [Nystatin SUSP] 5 ml PO QID 14 Days ml 05/23/19 Unknown Rx ED Physical Exam - General Limitations: No Limitations - Other Other exam information: General: No limitations, patient is alert in no acute distress Head exam: Atraumatic, normocephalic Eyes exam: Normal appearance ENT: Moist mucous membrane, positive white plaques to posterior oropharynx suggestive of candidiasis Neck exam: Normal inspection, full range of motion Respiratory exam: Clear to auscultation bilateral, no wheezes, rales, crackles Cardiovascular: Normal rate and rhythm Abdomen: Soft, nondistended, and nontender, with normal bowel sounds, no rebound, or guarding, Extremity: No deformity, full range of motion very minimum ankle edema Back: Normal Inspection Neurologic: Alert, oriented x3, speech clear, no gross motor or sensory deficit Psychiatric: Normal mood, affect Skin: No rash ED Course Vital Signs 05/22/19 05/22/19 22:33 22:40 Temperature 98.2 F 98.2 F Pulse Rate 94 H 97 H Respiratory 18 18 Rate Blood Pressure 121/73 121/73 O2 Sat by Pulse 98 98 Oximetry ED Medical Decision Making - Lab Data Result diagrams: 05/22/19 23:04 05/22/19 23:04 Lab Results 05/22/19 05/22/19 05/22/19 Range/Units 23:04 23:04 23:04 WBC 3.5 L (4.5-11.0) K/mm3 RBC 3.40 L (3.65-5.03) M/mm3 Hgb 9.5 L (10.1-14.3) gm/dl Hct 29.9 L (30.3-42.9) % MCV 88 (79-97) fl MCH 28 (28-32) pg MCHC 32 (30-34) % RDW 15.2 (13.2-15.2) % Plt Count 195 (140-440) K/mm3 Lymph % (Auto) 34.4 (13.4-35.0) % [place] % (Auto) 13.3 H (0.0-7.3) % Eos % (Auto) 0.2 (0.0-4.3) % Baso % (Auto) 0.4 (0.0-1.8) % Lymph # 1.2 (1.2-5.4) K/mm3 [place] # 0.5 (0.0-0.8) K/mm3 Eos # 0.0 (0.0-0.4) K/mm3 Baso # 0.0 (0.0-0.1) K/mm3 Seg Neutrophils % 51.7 (40.0-70.0) % Seg Neutrophils # 1.8 (1.8-7.7) K/mm3 Sodium 145 (137-145) mmol/L Potassium 3.7 (3.6-5.0) mmol/L Chloride 108.1 H (98-107) mmol/L Carbon Dioxide 25 (22-30) mmol/L Anion Gap 16 mmol/L BUN 10 (7-17) mg/dL Creatinine 0.6 L (0.7-1.2) mg/dL Estimated GFR > 60 ml/min BUN/Creatinine Ratio 17 % Glucose 92 (65-100) mg/dL Calcium 8.7 (8.4-10.2) mg/dL Total Bilirubin 0.20 (0.1-1.2) mg/dL AST 101 H (5-40) units/L ALT 41 (7-56) units/L Alkaline Phosphatase 185 H (35-129) units/L Total Protein 7.3 (6.3-8.2) g/dL Albumin 3.5 L (3.9-5) g/dL Albumin/Globulin Ratio 0.9 % Lipase 81 H (13-60) units/L HCG, Quant (0-4) mIU/mL Urine Color (Yellow) Urine Turbidity (Clear) Urine pH (5.0-7.0) Ur Specific [place] (1.003-1.030) Urine Protein (Negative) mg/dL Urine Glucose (UA) (Negative) mg/dL Urine Ketones (Negative) mg/dL Urine Blood (Negative) Urine Nitrite (Negative) Urine Bilirubin (Negative) Urine Urobilinogen (<2.0) mg/dL Ur Leukocyte Esterase (Negative) Urine WBC (Auto) (0.0-6.0) /HPF Urine RBC (Auto) (0.0-6.0) /HPF U Epithel Cells (Auto) (0-13.0) /HPF Urine Bacteria (Auto) (Negative) /HPF Calcium Oxalate Crystal Urine Mucus /HPF Urine HCG, Qual (Negative) 01/26/20 01/27/20 01/27/20 Range/Units 23:09 03:01 Unknown WBC (4.5-11.0) K/mm3 RBC (3.65-5.03) M/mm3 Hgb (10.1-14.3) gm/dl Hct (30.3-42.9) % MCV (79-97) fl MCH (28-32) pg MCHC (30-34) % RDW (13.2-15.2) % Plt Count (140-440) K/mm3 Lymph % (Auto) (13.4-35.0) % [place] % (Auto) (0.0-7.3) % Eos % (Auto) (0.0-4.3) % Baso % (Auto) (0.0-1.8) % Lymph # (1.2-5.4) K/mm3 [place] # (0.0-0.8) K/mm3 Eos # (0.0-0.4) K/mm3 Baso # (0.0-0.1) K/mm3 Seg Neutrophils % (40.0-70.0) % Seg Neutrophils # (1.8-7.7) K/mm3 Sodium (137-145) mmol/L Potassium (3.6-5.0) mmol/L Chloride (98-107) mmol/L Carbon Dioxide (22-30) mmol/L Anion Gap mmol/L BUN (7-17) mg/dL Creatinine (0.7-1.2) mg/dL Estimated GFR ml/min BUN/Creatinine Ratio % Glucose (65-100) mg/dL Calcium (8.4-10.2) mg/dL Total Bilirubin (0.1-1.2) mg/dL AST (5-40) units/L ALT (7-56) units/L Alkaline Phosphatase (35-129) units/L Total Protein (6.3-8.2) g/dL Albumin (3.9-5) g/dL Albumin/Globulin Ratio % Lipase (13-60) units/L HCG, Quant < 2 (0-4) mIU/mL Urine Color Yellow (Yellow) Urine Turbidity Cloudy (Clear) Urine pH 6.0 (5.0-7.0) Ur Specific [place] 1.027 (1.003-1.030) Urine Protein 100 mg/dl (Negative) mg/dL Urine Glucose (UA) Neg (Negative) mg/dL Urine Ketones Neg (Negative) mg/dL Urine Blood Sm (Negative) Urine Nitrite Pos (Negative) Urine Bilirubin Neg (Negative) Urine Urobilinogen 4.0 (<2.0) mg/dL Ur Leukocyte Esterase Mod (Negative) Urine WBC (Auto) 86.0 H (0.0-6.0) /HPF Urine RBC (Auto) 12.0 (0.0-6.0) /HPF U Epithel Cells (Auto) 4.0 (0-13.0) /HPF Urine Bacteria (Auto) 4+ (Negative) /HPF Calcium Oxalate Crystal 3+ Urine Mucus 3+ /HPF Urine HCG, Qual Positive A (Negative) - Radiology Data Radiology results: report reviewed CHEST 2 VIEWS INDICATION / CLINICAL INFORMATION: cough, aids. COMPARISON: None available. FINDINGS: SUPPORT DEVICES: None. HEART / MEDIASTINUM: No significant abnormality. LUNGS / PLEURA: No significant pulmonary or pleural abnormality. .No pneumothorax. ADDITIONAL FINDINGS: No significant additional findings. IMPRESSION: 1. No acute findings. - Medical Decision Making Patient was here in May 04 for similar complaints of nausea, vomiting, and diarrhea and had negative CT abdomen and pelvis at that time. She was provided Bactrim for nitrate positive urine. Patient's urine was added on to urine in the lab and was positive. Subsequent blood draw revealed a negative hCG. Chest x-ray neg. Urine positive for infection. Patient will be treated for UTI with Macrobid. Patient likely has AIDS and is not currently on medications for HIV or antibiotic prophylaxis. Patient states she needs to follow up with the infectious disease clinic on [address] but has not called to make an appointment. Outpatient follow-up with infectious disease encouraged. macrobid given for uti As per medical record patient has a history of cocaine abuse - Differential Diagnosis AIDS, infectious diarrhea, dehydration, UTI, pneumonia Critical Care Time: No Critical care attestation.: If time is entered above; I have spent that time in minutes in the direct care of this critically ill patient, excluding procedure time. ED Disposition Clinical Impression: AIDS, UTI (urinary tract infection), Pharyngeal candidiasis, Chronic diarrhea Disposition: DC- TO HOME OR SELFCARE Is pt being admited?: No Does the pt Need Aspirin: No Condition: Stable Instructions: Oral Candidiasis (ED), Human Immunodeficiency Virus Infection (ED), Urinary Tract Infection in Women (ED), Chronic Diarrhea (ED) Additional Instructions: Take the medication as prescribed. Follow-up with your doctor or with the doctor/clinic provided. Return if symptoms worsen as indicated by your discharge instructions.. It is very important that you follow up with an infectious disease doctor for further management of your HIV/AIDS Prescriptions: Nitrofurantoin [place]/M-Cryst [Macrobid CAP] 100 mg PO Q12HR #14 capsule Nystatin [Nystatin SUSP] 5 ml PO QID 14 Days ml Referrals: PRIMARY CARE, [Primary Care Provider] - 3-5 Days [facility] [Provider Group] - 3-5 Days [facility] [Other] - 3-5 Days (Thursday - Thursday: 8 AM - 5 PM Extended hours on (Main) (Appointments)) Time of Disposition: 04:34
[2019-05-23 05:09] VITALS: BP 122/72
== END 2019-05-23 05:15 | disposition home or self-care (01) ==
LOC: ED 22:29
DX: N39.0 Urinary tract infection, site not specified (principal); B37.89 Other sites of candidiasis; K52.9 Noninfective gastroenteritis and colitis, unspecified; F25.0 Schizoaffective disorder, bipolar type; F32.9 Major depressive disorder, single episode, unspecified; F17.200 Nicotine dependence, unspecified, uncomplicated; F12.10 Cannabis abuse, uncomplicated; Z79.899 Other long term (current) drug therapy
CPT/HCPCS: 36415; 71046; 80053; 81001; 81025; 83690; 84702; 85025; 87086

== ENCOUNTER 2019-07-06 16:37 | Emergency (ER) | payer MEDICAID ==
--- NOTE | 2019-07-06 17:47 | Emergency Department Report ---
Blank Doc - Documentation Documentation: 43-year-old female that presents with n/v, body aches, and cough. HX of HIV. This initial assessment/diagnostic orders/clinical plan/treatment(s) is/are subject to change based on patient's health status, clinical progression and re- assessment by fellow clinical providers in the ED. Further treatment and workup at subsequent clinical providers discretion. Patient/guardians urged not to elope from the ED as their condition may be serious if not clinically assessed and managed. Initial orders include: 1- Patient sent to MAIN ED for further evaluation and treatment 2- labs 3- XR
[2019-07-06 18:00] LABS: Basophils % (Auto) 0.3 % (0.0-1.8); Eosinophils % (Auto) 0.2 % (0.0-4.3); Hematocrit 34.5 % (30.3-42.9); Hemoglobin 10.8 gm/dl (10.1-14.3); Lymphocytes # (Auto) 1.1 K/mm3 (1.2-5.4); Lymphocytes % (Auto) 25.8 % (13.4-35.0); Mean Corpuscular HGB Conc 32 % (30-34); Mean Corpuscular Volume 83 fl (79-97); Monocytes # (Auto) 0.4 K/mm3 (0.0-0.8); Monocytes % (Auto) 8.8 % (0.0-7.3); Platelet Count 164 K/mm3 (140-440); Red Blood Count 4.16 M/mm3 (3.65-5.03)
[2019-07-06 18:19] LABS: Alanine Aminotransferase 34 units/L (7-56); Albumin 3.6 g/dL (3.9-5); BUN/Creatinine Ratio 18; Blood Urea Nitrogen 11 mg/dL (7-17); Calcium 8.7 mg/dL (8.4-10.2); Hemolysis Index 6
[2019-07-06 18:49] LABS: Bilirubin,Urine NEG (Negative); Blood,Urine NEG (Negative); Color,Urine Amber (Yellow); Mucus,Urine 1+ /HPF
[2019-07-06 18:51] LABS: WBC,Urine > 182.0 /HPF (0.0-6.0)
--- NOTE | 2019-07-06 22:12 | Emergency Department Report ---
ED General Adult HPI - General Chief complaint: Upper Respiratory Infection Stated complaint: THRUSH/PAIN IN LEGS Time Seen by Provider: 07/06/19 17:38 Source: patient Mode of arrival: Ambulatory Limitations: No Limitations - History of Present Illness Initial comments: The patient presents to the emergency department with a chief complaint of burning with urination and oral thrush. Patient states she is HIV positive and not taking her medications. Patient denies fever, chest pain, headache. Patient also complains that she has oral thrush. -: unknown Severity scale (0 -10): 2 Quality: burning Improves with: none Worsens with: none Associated Symptoms: denies other symptoms Treatments Prior to Arrival: none - Related Data Previous Rx's Medication Instructions Recorded Last Taken Type Magnesium Oxide [Mag-Ox] 400 mg PO QDAY 30 Days #30 tablet 08/17/18 Unknown Rx Potassium Chloride [K-Dur] 20 meq PO QDAY 30 Days #30 tablet 08/17/18 Unknown Rx Quetiapine Fumarate [Seroquel] 100 mg PO HS 30 Days #30 tablet 08/17/18 Unknown Rx Sulfamethoxazole/Trimethoprim 1 each PO QDAY 30 Days #30 tablet 08/17/18 Unknown Rx [Bactrim DS TAB] Bacitracin/Polymyxin B Sulfate 1 applic TP BID #1 oint...g. 11/09/18 Unknown Rx [Bacitracin-Polymyxin Ointment] Ibuprofen [Motrin] 800 mg PO Q8HR #30 tablet 11/09/18 Unknown Rx cephALEXin [Keflex] 500 mg PO Q12HR #10 cap 11/09/18 Unknown Rx Ondansetron [Zofran ODT TAB] 8 mg PO Q8HR #20 tab.rapdis 04/28/19 Unknown Rx Ondansetron [Zofran Odt] 4 mg PO Q8HR PRN #20 tab.rapdis 05/04/19 Unknown Rx Sulfamethoxazole/Trimethoprim 1 each PO BID #14 tablet 05/04/19 Unknown Rx [Bactrim DS TAB] Nitrofurantoin [place]/M-Cryst 100 mg PO Q12HR #14 capsule 05/23/19 Unknown Rx [Macrobid CAP] Nystatin [Nystatin SUSP] 5 ml PO QID 14 Days ml 05/23/19 Unknown Rx Azithromycin [Zithromax Z-MILDRED] 0 mg PO DAILY #6 tab 07/06/19 Unknown Rx Nystatin [Nystatin SUSP] 10 ml PO TID #480 ml 07/06/19 Unknown Rx Sulfamethoxazole/Trimethoprim 1 each PO BID #14 tablet 07/06/19 Unknown Rx [Bactrim DS TAB] Allergies Allergy/AdvReac Type Severity Reaction Status Date / Time No Known Allergies Allergy Verified 10/25/15 16:36 ED Review of Systems ROS: Stated complaint: THRUSH/PAIN IN LEGS Other details as noted in HPI Comment: All other systems reviewed and negative Constitutional: denies: chills, fever Eyes: denies: eye pain, eye discharge, vision change ENT: denies: ear pain, throat pain Respiratory: denies: cough, shortness of breath, wheezing Cardiovascular: denies: chest pain, palpitations Endocrine: no symptoms reported Gastrointestinal: denies: abdominal pain, nausea, diarrhea Genitourinary: denies: urgency, dysuria, discharge Musculoskeletal: denies: back pain, joint swelling, arthralgia Skin: denies: rash, lesions Neurological: denies: headache, weakness, paresthesias Psychiatric: denies: anxiety, depression Hematological/Lymphatic: denies: easy bleeding, easy bruising ED Past Medical Hx - Past Medical History Previous Medical History?: Yes Hx Psychiatric Treatment: Yes (Bipolar,schizophrenia,depression) Hx HIV: Yes - Surgical History Past Surgical History?: Yes Additional Surgical History: x3. surgery for dislocated shoulder - Social History Smoking Status: Never Smoker Substance Use Type: None - Medications Home Medications: Home Medications Medication Instructions Recorded Confirmed Last Taken Type Magnesium Oxide [Mag-Ox] 400 mg PO QDAY 30 Days #30 tablet 08/17/18 Unknown Rx Potassium Chloride [K-Dur] 20 meq PO QDAY 30 Days #30 tablet 08/17/18 Unknown Rx Quetiapine Fumarate [Seroquel] 100 mg PO HS 30 Days #30 tablet 08/17/18 Unknown Rx Sulfamethoxazole/Trimethoprim 1 each PO QDAY 30 Days #30 tablet 08/17/18 Unknown Rx [Bactrim DS TAB] Bacitracin/Polymyxin B Sulfate 1 applic TP BID #1 oint...g. 11/09/18 Unknown Rx [Bacitracin-Polymyxin Ointment] Ibuprofen [Motrin] 800 mg PO Q8HR #30 tablet 11/09/18 Unknown Rx cephALEXin [Keflex] 500 mg PO Q12HR #10 cap 11/09/18 Unknown Rx Ondansetron [Zofran ODT TAB] 8 mg PO Q8HR #20 tab.rapdis 04/28/19 Unknown Rx Ondansetron [Zofran Odt] 4 mg PO Q8HR PRN #20 tab.rapdis 05/04/19 Unknown Rx Sulfamethoxazole/Trimethoprim 1 each PO BID #14 tablet 05/04/19 Unknown Rx [Bactrim DS TAB] Nitrofurantoin [place]/M-Cryst 100 mg PO Q12HR #14 capsule 05/23/19 Unknown Rx [Macrobid CAP] Nystatin [Nystatin SUSP] 5 ml PO QID 14 Days ml 05/23/19 Unknown Rx Azithromycin [Zithromax Z-MILDRED] 0 mg PO DAILY #6 tab 07/06/19 Unknown Rx Nystatin [Nystatin SUSP] 10 ml PO TID #480 ml 07/06/19 Unknown Rx Sulfamethoxazole/Trimethoprim 1 each PO BID #14 tablet 07/06/19 Unknown Rx [Bactrim DS TAB] ED Physical Exam - General Limitations: No Limitations General appearance: alert, in no apparent distress - Head Head exam: Present: atraumatic, normocephalic - Eye Eye exam: Present: normal appearance - ENT ENT exam: Present: other (Oral thrush) - Neck Neck exam: Present: normal inspection - Respiratory Respiratory exam: Present: normal lung sounds bilaterally. Absent: respiratory distress - Cardiovascular Cardiovascular Exam: Present: regular rate, normal rhythm. Absent: systolic murmur, diastolic murmur, rubs, gallop - GI/Abdominal GI/Abdominal exam: Present: soft, normal bowel sounds. Absent: distended, tenderness - Extremities Exam Extremities exam: Present: normal inspection - Back Exam Back exam: Present: normal inspection - Neurological Exam Neurological exam: Present: alert, oriented X3, CN II-XII intact. Absent: motor sensory deficit - Psychiatric Psychiatric exam: Present: normal affect, normal mood - Skin Skin exam: Present: warm, dry, intact, normal color. Absent: rash ED Course Vital Signs 07/06/19 07/06/19 07/06/19 16:43 17:39 21:14 Temperature 98.7 F 98.0 F Pulse Rate 103 H 96 H 96 H Respiratory 18 18 17 Rate Blood Pressure 121/86 121/86 O2 Sat by Pulse 99 99 Oximetry 07/06/19 07/06/19 07/06/19 21:15 21:30 21:46 Temperature Pulse Rate 97 H 99 H 105 H Respiratory 22 24 19 Rate Blood Pressure 133/90 133/84 133/84 O2 Sat by Pulse 100 99 99 Oximetry 07/06/19 07/06/19 22:00 22:16 Temperature Pulse Rate Respiratory Rate Blood Pressure 122/85 133/84 O2 Sat by Pulse 100 Oximetry ED Medical Decision Making - Lab Data Result diagrams: 07/06/19 17:47 07/06/19 17:47 Lab Results 07/06/19 07/06/19 07/06/19 Range/Units 17:47 17:47 17:47 WBC 4.4 L (4.5-11.0) K/mm3 RBC 4.16 (3.65-5.03) M/mm3 Hgb 10.8 (10.1-14.3) gm/dl Hct 34.5 (30.3-42.9) % MCV 83 (79-97) fl MCH 26 L (28-32) pg MCHC 32 (30-34) % RDW 17.0 H (13.2-15.2) % Plt Count 164 (140-440) K/mm3 Lymph % (Auto) 25.8 (13.4-35.0) % Scott % (Auto) 8.8 H (0.0-7.3) % Eos % (Auto) 0.2 (0.0-4.3) % Baso % (Auto) 0.3 (0.0-1.8) % Lymph # 1.1 L (1.2-5.4) K/mm3 Scott # 0.4 (0.0-0.8) K/mm3 Eos # 0.0 (0.0-0.4) K/mm3 Baso # 0.0 (0.0-0.1) K/mm3 Seg Neutrophils % 64.9 (40.0-70.0) % Seg Neutrophils # 2.8 (1.8-7.7) K/mm3 Sodium 141 (137-145) mmol/L Potassium 3.3 L (3.6-5.0) mmol/L Chloride 104.2 (98-107) mmol/L Carbon Dioxide 23 (22-30) mmol/L Anion Gap 17 mmol/L BUN 11 (7-17) mg/dL Creatinine 0.6 L (0.7-1.2) mg/dL Estimated GFR > 60 ml/min BUN/Creatinine Ratio 18 % Glucose 117 H (65-100) mg/dL Calcium 8.7 (8.4-10.2) mg/dL Total Bilirubin 0.20 (0.1-1.2) mg/dL AST 83 H (5-40) units/L ALT 34 (7-56) units/L Alkaline Phosphatase 133 H (35-129) units/L Total Protein 8.2 (6.3-8.2) g/dL Albumin 3.6 L (3.9-5) g/dL Albumin/Globulin Ratio 0.8 % Lipase 46 (13-60) units/L HCG, Qual Negative (Negative) Urine Color (Yellow) Urine Turbidity (Clear) Urine pH (5.0-7.0) Ur Specific [place] (1.003-1.030) Urine Protein (Negative) mg/dL Urine Glucose (UA) (Negative) mg/dL Urine Ketones (Negative) mg/dL Urine Blood (Negative) Urine Nitrite (Negative) Urine Bilirubin (Negative) Urine Urobilinogen (<2.0) mg/dL Ur Leukocyte Esterase (Negative) Urine WBC (Auto) (0.0-6.0) /HPF Urine RBC (Auto) (0.0-6.0) /HPF U Epithel Cells (Auto) (0-13.0) /HPF Urine Mucus /HPF 07/06/19 Range/Units Unknown WBC (4.5-11.0) K/mm3 RBC (3.65-5.03) M/mm3 Hgb (10.1-14.3) gm/dl Hct (30.3-42.9) % MCV (79-97) fl MCH (28-32) pg MCHC (30-34) % RDW (13.2-15.2) % Plt Count (140-440) K/mm3 Lymph % (Auto) (13.4-35.0) % Scott % (Auto) (0.0-7.3) % Eos % (Auto) (0.0-4.3) % Baso % (Auto) (0.0-1.8) % Lymph # (1.2-5.4) K/mm3 Scott # (0.0-0.8) K/mm3 Eos # (0.0-0.4) K/mm3 Baso # (0.0-0.1) K/mm3 Seg Neutrophils % (40.0-70.0) % Seg Neutrophils # (1.8-7.7) K/mm3 Sodium (137-145) mmol/L Potassium (3.6-5.0) mmol/L Chloride (98-107) mmol/L Carbon Dioxide (22-30) mmol/L Anion Gap mmol/L BUN (7-17) mg/dL Creatinine (0.7-1.2) mg/dL Estimated GFR ml/min BUN/Creatinine Ratio % Glucose (65-100) mg/dL Calcium (8.4-10.2) mg/dL Total Bilirubin (0.1-1.2) mg/dL AST (5-40) units/L ALT (7-56) units/L Alkaline Phosphatase (35-129) units/L Total Protein (6.3-8.2) g/dL Albumin (3.9-5) g/dL Albumin/Globulin Ratio % Lipase (13-60) units/L HCG, Qual (Negative) Urine Color [place] (Yellow) Urine Turbidity Slightly-cloudy (Clear) Urine pH 6.0 (5.0-7.0) Ur Specific [place] 1.029 (1.003-1.030) Urine Protein 100 mg/dl (Negative) mg/dL Urine Glucose (UA) Neg (Negative) mg/dL Urine Ketones Neg (Negative) mg/dL Urine Blood Neg (Negative) Urine Nitrite Neg (Negative) Urine Bilirubin Neg (Negative) Urine Urobilinogen 4.0 (<2.0) mg/dL Ur Leukocyte Esterase Lg (Negative) Urine WBC (Auto) > 182.0 H (0.0-6.0) /HPF Urine RBC (Auto) 32.0 (0.0-6.0) /HPF U Epithel Cells (Auto) 4.0 (0-13.0) /HPF Urine Mucus 1+ /HPF - Medical Decision Making Patient states she also needs refills of her psych medications Patient is not homicidal or suicidal Critical care attestation.: If time is entered above; I have spent that time in minutes in the direct care of this critically ill patient, excluding procedure time. ED Disposition Clinical Impression: UTI (urinary tract infection), Oral thrush Disposition: TO HOME OR SELFCARE Is pt being admited?: No Does the pt Need Aspirin: No Condition: Stable Instructions: Urinary Tract Infection in Women (ED), Oral Candidiasis (ED) Additional Instructions: return if worse Prescriptions: Sulfamethoxazole/Trimethoprim [Bactrim DS TAB] 1 each PO BID #14 tablet Nystatin [Nystatin SUSP] 10 ml PO TID #480 ml Azithromycin [Zithromax Z-MILDRED] 0 mg PO DAILY #6 tab Referrals: PRIMARY CARE, [Primary Care Provider] - 3-5 Days [facility] [Outside] - 3-5 Days [facility] [Provider Group] - 3-5 Days Time of Disposition: 22:41
[2019-07-06 22:26] VITALS: BP 133/84
[2019-07-06] MEDS ORDERED: LIDOCAINE-MPF (1%) 10 MG/1 ML VIAL 5 ML INFILTRATI ONE (22:49)
== END 2019-07-06 23:19 | disposition home or self-care (01) ==
LOC: ED 16:37
DX: N39.0 Urinary tract infection, site not specified (principal); B37.0 Candidal stomatitis; F31.9 Bipolar disorder, unspecified; F20.9 Schizophrenia, unspecified; Z21 Asymptomatic human immunodeficiency virus [HIV] infection status; Z98.890 Other specified postprocedural states; Z79.1 Long term (current) use of non-steroidal anti-inflammatories (NSAID); Z79.899 Other long term (current) drug therapy
CPT/HCPCS: 36415; 80053; 81001; 83690; 84703; 85025; 96372; 99283; J0696

== ENCOUNTER 2019-08-07 19:13 | Emergency (ER) | payer MEDICAID ==
[2019-08-07 19:20] VITALS: BP 132/90
[2019-08-07] MEDS ORDERED: LOPERAMIDE 2 MG/10 ML ORAL LIQD PO PRN (20:51)
--- NOTE | 2019-08-07 21:30 | Emergency Department Report ---
Chief Complaint: Nausea/Vomiting/Diarrhea Stated Complaint: DIARRHEA Time Seen by Provider: 08/07/19 21:26 - HPI History of Present Illness: 43-year-old -[place] female presents to the emergency room after being discharged from the [facility] for diarrhea. Patient has chronic history of diarrhea and HIV. Patient was brought here and dropped off by her family member and left. It was reported that patient is homeless. - Exam Vital Signs: Vital Signs 08/07/19 19:14 Temperature 99 F Pulse Rate 102 H Respiratory 18 Rate Blood Pressure 132/90 O2 Sat by Pulse 100 Oximetry Physical Exam: Patient is alert and oriented x3. Thin Gen: alert oriented NAD Cardic: regular rate and rhythm no murmurs appreciated Resp: Clear to auscultation bilateral no wheezing no rales or rhonchi. Abdomen: Soft nontender nondistended normal bowel sounds. Mini neuro: Normal finger to nose exam, [id number] normal, Romberg neg, strengh 4/5 all extrimities, Alert and oriented time 3 Crainal nerve II-IIX intact MSE screening note: Focused history and physical exam performed. Due to findings the following was ordered: 43-year-old -[place] female presents to the emergency room after being discharged from the [facility] for diarrhea. Patient has chronic history of diarrhea and HIV. Patient was brought here and dropped off by her family member and left. It was reported that patient is homeless. Patient is given Imodium 2 mg p.o. Patient will be discharged home to follow-up with her primary care provider. ED Disposition for MSE Disposition: MED SCREENING EXAM-LEFT Is pt being admited?: No Does the pt Need Aspirin: No Condition: Stable Additional Instructions: Please continue with chronic medications as prescribed. Follow-up with your HIV specialist. Take [id number] Imodium right ear for diarrhea. Referrals: PRIMARY CARE, [Primary Care Provider] - 3-5 Days
== END 2019-08-07 22:26 | disposition left against medical advice (07) ==
LOC: ED 19:13
DX: R19.7 Diarrhea, unspecified (principal); Z21 Asymptomatic human immunodeficiency virus [HIV] infection status; Z59.0 Homelessness
CPT/HCPCS: 99282

== ENCOUNTER 2019-09-10 04:23 | Emergency (ER) | payer MEDICAID ==
[2019-09-10 04:35] VITALS: BP 119/67
== END 2019-09-10 08:38 ==
LOC: ED 04:23
DX: R69 Illness, unspecified (principal); Z53.21 Procedure and treatment not carried out due to patient leaving prior to being seen by health care provider

== ENCOUNTER 2019-09-10 09:33 | Emergency (ER) | payer MEDICAID ==
[2019-09-10 09:40] VITALS: BP 115/81
--- NOTE | 2019-09-10 11:07 | Emergency Department Report ---
ED General Adult HPI - General Chief complaint: Medical Clearance Stated complaint: COUGH/LOOSE STOOL Time Seen by Provider: 09/10/19 10:56 Source: patient Mode of arrival: Ambulatory Limitations: No Limitations - History of Present Illness Initial comments: pt presents for complaint of constipation however she is eating lunch meal at this time without symptoms. there is no fever or chills no n/v. She states pain medication rx'd by pcp yesterday. but constipation is an intermittent issue for her. symptoms are relieved by bowel movement, symptoms are exacerbated by nothing. last BM this am, hard rabbit pellets. - Related Data Previous Rx's Medication Instructions Recorded Last Taken Type Magnesium Oxide [Mag-Ox] 400 mg PO QDAY 30 Days #30 tablet 08/17/18 Unknown Rx Potassium Chloride [K-Dur] 20 meq PO QDAY 30 Days #30 tablet 08/17/18 Unknown Rx Quetiapine Fumarate [Seroquel] 100 mg PO HS 30 Days #30 tablet 08/17/18 Unknown Rx Sulfamethoxazole/Trimethoprim 1 each PO QDAY 30 Days #30 tablet 08/17/18 Unknown Rx [Bactrim DS TAB] Bacitracin/Polymyxin B Sulfate 1 applic TP BID #1 oint...g. 11/09/18 Unknown Rx [Bacitracin-Polymyxin Ointment] Ibuprofen [Motrin] 800 mg PO Q8HR #30 tablet 11/09/18 Unknown Rx cephALEXin [Keflex] 500 mg PO Q12HR #10 cap 11/09/18 Unknown Rx Ondansetron [Zofran ODT TAB] 8 mg PO Q8HR #20 tab.rapdis 04/28/19 Unknown Rx Ondansetron [Zofran Odt] 4 mg PO Q8HR PRN #20 tab.rapdis 05/04/19 Unknown Rx Sulfamethoxazole/Trimethoprim 1 each PO BID #14 tablet 05/04/19 Unknown Rx [Bactrim DS TAB] Nitrofurantoin [place]/M-Cryst 100 mg PO Q12HR #14 capsule 05/23/19 Unknown Rx [Macrobid CAP] Nystatin [Nystatin SUSP] 5 ml PO QID 14 Days ml 05/23/19 Unknown Rx Azithromycin [Zithromax Z-MILDRED] 0 mg PO DAILY #6 tab 07/06/19 Unknown Rx Nystatin [Nystatin SUSP] 10 ml PO TID #480 ml 07/06/19 Unknown Rx Sulfamethoxazole/Trimethoprim 1 each PO BID #14 tablet 07/06/19 Unknown Rx [Bactrim DS TAB] Docusate Sodium [Colace] 100 mg PO BID #30 capsule 09/10/19 Unknown Rx diphenhydrAMINE [Benadryl CAP] 25 mg PO Q8HR PRN #30 capsule 09/10/19 Unknown Rx polyethylene glycoL 3350 [Miralax 17 gm PO BID PRN #10 packet 09/10/19 Unknown Rx 3350] Allergies Allergy/AdvReac Type Severity Reaction Status Date / Time No Known Allergies Allergy Verified 09/10/19 09:37 ED Review of Systems ROS: Stated complaint: COUGH/LOOSE STOOL Other details as noted in HPI Constitutional: denies: chills, fever Eyes: denies: eye pain, eye discharge, vision change ENT: denies: ear pain, throat pain Respiratory: denies: cough, shortness of breath, wheezing Cardiovascular: denies: chest pain, palpitations Endocrine: no symptoms reported Gastrointestinal: denies: abdominal pain, nausea, diarrhea Genitourinary: denies: urgency, dysuria, discharge Musculoskeletal: denies: back pain, joint swelling, arthralgia Skin: denies: rash, lesions Neurological: denies: headache, weakness, paresthesias Psychiatric: denies: anxiety, depression Hematological/Lymphatic: denies: easy bleeding, easy bruising ED Past Medical Hx - Past Medical History Hx Psychiatric Treatment: Yes (Bipolar,schizophrenia,depression) Hx HIV: Yes - Surgical History Additional Surgical History: x3. surgery for dislocated shoulder - Social History Smoking Status: Never Smoker Substance Use Type: Alcohol, Cocaine - Medications Home Medications: Home Medications Medication Instructions Recorded Confirmed Last Taken Type Magnesium Oxide [Mag-Ox] 400 mg PO QDAY 30 Days #30 tablet 08/17/18 Unknown Rx Potassium Chloride [K-Dur] 20 meq PO QDAY 30 Days #30 tablet 08/17/18 Unknown Rx Quetiapine Fumarate [Seroquel] 100 mg PO HS 30 Days #30 tablet 08/17/18 Unknown Rx Sulfamethoxazole/Trimethoprim 1 each PO QDAY 30 Days #30 tablet 08/17/18 Unknown Rx [Bactrim DS TAB] Bacitracin/Polymyxin B Sulfate 1 applic TP BID #1 oint...g. 11/09/18 Unknown Rx [Bacitracin-Polymyxin Ointment] Ibuprofen [Motrin] 800 mg PO Q8HR #30 tablet 11/09/18 Unknown Rx cephALEXin [Keflex] 500 mg PO Q12HR #10 cap 11/09/18 Unknown Rx Ondansetron [Zofran ODT TAB] 8 mg PO Q8HR #20 tab.rapdis 04/28/19 Unknown Rx Ondansetron [Zofran Odt] 4 mg PO Q8HR PRN #20 tab.rapdis 05/04/19 Unknown Rx Sulfamethoxazole/Trimethoprim 1 each PO BID #14 tablet 05/04/19 Unknown Rx [Bactrim DS TAB] Nitrofurantoin [place]/M-Cryst 100 mg PO Q12HR #14 capsule 05/23/19 Unknown Rx [Macrobid CAP] Nystatin [Nystatin SUSP] 5 ml PO QID 14 Days ml 05/23/19 Unknown Rx Azithromycin [Zithromax Z-MILDRED] 0 mg PO DAILY #6 tab 07/06/19 Unknown Rx Nystatin [Nystatin SUSP] 10 ml PO TID #480 ml 07/06/19 Unknown Rx Sulfamethoxazole/Trimethoprim 1 each PO BID #14 tablet 07/06/19 Unknown Rx [Bactrim DS TAB] Docusate Sodium [Colace] 100 mg PO BID #30 capsule 09/10/19 Unknown Rx diphenhydrAMINE [Benadryl CAP] 25 mg PO Q8HR PRN #30 capsule 09/10/19 Unknown Rx polyethylene glycoL 3350 [Miralax 17 gm PO BID PRN #10 packet 09/10/19 Unknown Rx 3350] ED Physical Exam - General Limitations: No Limitations General appearance: alert, in no apparent distress - Head Head exam: Present: atraumatic, normocephalic - Eye Eye exam: Present: normal appearance - ENT ENT exam: Present: mucous membranes moist - Neck Neck exam: Present: normal inspection - Respiratory Respiratory exam: Present: normal lung sounds bilaterally. Absent: respiratory distress - Cardiovascular Cardiovascular Exam: Present: regular rate, normal rhythm, normal heart sounds. Absent: systolic murmur, diastolic murmur, rubs, gallop - GI/Abdominal GI/Abdominal exam: Present: soft, distended (mild distended no pain ), normal bowel sounds. Absent: tenderness, guarding, rebound, rigid, bruit, hernia - Rectal Rectal exam: Present: deferred - External exam: Present: normal external exam - Extremities Exam Extremities exam: Present: normal inspection, full ROM. Absent: tenderness - Back Exam Back exam: Present: normal inspection, full ROM. Absent: tenderness - Neurological Exam Neurological exam: Present: alert, oriented X3 - Psychiatric Psychiatric exam: Present: normal affect, normal mood - Skin Skin exam: Present: warm, dry, intact, normal color. Absent: rash ED Course Vital Signs 09/10/19 09:37 Temperature 98.8 F Pulse Rate 97 H Respiratory 16 Rate Blood Pressure 115/81 O2 Sat by Pulse 96 Oximetry ED Medical Decision Making - Medical Decision Making constipation Critical care attestation.: If time is entered above; I have spent that time in minutes in the direct care of this critically ill patient, excluding procedure time. ED Disposition Clinical Impression: Constipation Qualifiers: Constipation type: unspecified constipation type Qualified Code(s): K59.00 - Constipation, unspecified Disposition: - TO HOME OR SELFCARE Is pt being admited?: No Does the pt Need Aspirin: No Condition: Stable Instructions: Constipation (ED), High Fiber Diet (ED) Prescriptions: diphenhydrAMINE [Benadryl CAP] 25 mg PO Q8HR PRN #30 capsule PRN Reason: Itching Docusate Sodium [Colace] 100 mg PO BID #30 capsule polyethylene glycoL 3350 [Miralax 3350] 17 gm PO BID PRN #10 packet PRN Reason: Constipation Referrals: [facility] [Provider Group] - 3-5 Days Time of Disposition: 11:10
== END 2019-09-10 11:52 | disposition home or self-care (01) ==
LOC: ED 09:33
DX: K59.00 Constipation, unspecified (principal); F25.0 Schizoaffective disorder, bipolar type; F14.90 Cocaine use, unspecified, uncomplicated; Z21 Asymptomatic human immunodeficiency virus [HIV] infection status; Z79.899 Other long term (current) drug therapy; Z98.890 Other specified postprocedural states
CPT/HCPCS: 99282

== ENCOUNTER 2019-12-30 22:12 | Emergency (ER) | payer MEDICAID ==
[2019-12-30 22:41] VITALS: BP 101/76
[2019-12-31] MEDS ORDERED: SULFAMETHOXAZOLE/TRIMETHOPRIM 800/160MG DS TAB PO ONE (03:52)
[2019-12-31] MEDS ORDERED: diphenhydrAMINE 25 MG CAP PO ONE (03:52)
[2019-12-31] MEDS ORDERED: ACETAMINOPHEN 500 MG TAB PO ONE (03:52)
[2019-12-31 04:09] LABS: Bilirubin,Urine NEG (Negative); Blood,Urine NEG (Negative); Color,Urine Yellow (Yellow)
--- NOTE | 2019-12-31 04:50 | Emergency Department Report ---
ED Female HPI - General Chief complaint: Urogenital-Female Stated complaint: VAGINAL PAIN Source: patient Mode of arrival: Ambulatory Limitations: No Limitations - History of Present Illness Initial comments: Patient is a 44-year-old -[place] female with a history of HIV, schizophrenia, anxiety and depression and bipolar disorder who presents to the ED with complaint of vaginal pain due to small painful rash above her clitoris and pubic area for the last 2 days. Patient states that the pain is persistent and feels like there is a foreign body in the vagina. Patient denies fever, chills, nausea, vomiting, dysuria, urinary frequency and urgency, vaginal bleeding, vaginal discharge, low back pain, traumatic injury or dyspareunia. MD Complaint: other (vaginal pain) -: Sudden, days(s) (2) Location: suprapubic Radiation: non-radiating Severity: moderate Severity scale (0 -10): 5 Quality: sharp Consistency: constant Improves with: none Worsens with: none Are you Now?: No Associated Symptoms: denies other symptoms, rash (painful swollen erythematous rash on suprapubic area). denies: vaginal discharge, vaginal bleeding, abdominal pain, nausea/vomiting, fever/chills, headaches, loss of appetite, dysuria, hematuria, seizure, shortness of breath, syncope, other - Related Data Previous Rx's Medication Instructions Recorded Last Taken Type Magnesium Oxide [Mag-Ox] 400 mg PO QDAY 30 Days #30 tablet 08/17/18 Unknown Rx Potassium Chloride [K-Dur] 20 meq PO QDAY 30 Days #30 tablet 08/17/18 Unknown Rx Quetiapine Fumarate [Seroquel] 100 mg PO HS 30 Days #30 tablet 08/17/18 Unknown Rx Sulfamethoxazole/Trimethoprim 1 each PO QDAY 30 Days #30 tablet 08/17/18 Unknown Rx [Bactrim DS TAB] Bacitracin/Polymyxin B Sulfate 1 applic TP BID #1 oint...g. 11/09/18 Unknown Rx [Bacitracin-Polymyxin Ointment] cephALEXin [Keflex] 500 mg PO Q12HR #10 cap 11/09/18 Unknown Rx Ondansetron [Zofran ODT TAB] 8 mg PO Q8HR #20 tab.rapdis 04/28/19 Unknown Rx Ondansetron [Zofran Odt] 4 mg PO Q8HR PRN #20 tab.rapdis 05/04/19 Unknown Rx Sulfamethoxazole/Trimethoprim 1 each PO BID #14 tablet 05/04/19 Unknown Rx [Bactrim DS TAB] Nitrofurantoin [place]/M-Cryst 100 mg PO Q12HR #14 capsule 05/23/19 Unknown Rx [Macrobid CAP] Nystatin [Nystatin SUSP] 5 ml PO QID 14 Days ml 05/23/19 Unknown Rx Azithromycin [Zithromax Z-MILDRED] 0 mg PO DAILY #6 tab 07/06/19 Unknown Rx Nystatin [Nystatin SUSP] 10 ml PO TID #480 ml 07/06/19 Unknown Rx Sulfamethoxazole/Trimethoprim 1 each PO BID #14 tablet 07/06/19 Unknown Rx [Bactrim DS TAB] Docusate Sodium [Colace] 100 mg PO BID #30 capsule 09/10/19 Unknown Rx diphenhydrAMINE [Benadryl CAP] 25 mg PO Q8HR PRN #30 capsule 09/10/19 Unknown Rx polyethylene glycoL 3350 [Miralax 17 gm PO BID PRN #10 packet 09/10/19 Unknown Rx 3350] Ibuprofen [Motrin 800 MG tab] 800 mg PO Q8HR #30 tablet 12/31/19 Unknown Rx Sulfamethoxazole/Trimethoprim 1 each PO Q12H #20 tablet 12/31/19 Unknown Rx [Bactrim DS TAB] Allergies Allergy/AdvReac Type Severity Reaction Status Date / Time No Known Allergies Allergy Verified 09/10/19 09:37 ED Review of Systems ROS: Stated complaint: VAGINAL PAIN Other details as noted in HPI Constitutional: denies: chills, fever Eyes: denies: eye pain, eye discharge, vision change ENT: denies: ear pain, throat pain Respiratory: denies: cough, shortness of breath, wheezing Cardiovascular: denies: chest pain, palpitations Endocrine: no symptoms reported Gastrointestinal: denies: abdominal pain, nausea, diarrhea Genitourinary: denies: urgency, dysuria, discharge Musculoskeletal: denies: back pain, joint swelling, arthralgia Skin: rash (Swollen erythematous maculopapular painful rash on pubic area), change in color, pruritus. denies: lesions Neurological: denies: headache, weakness, paresthesias Psychiatric: denies: anxiety, depression Hematological/Lymphatic: denies: easy bleeding, easy bruising ED Past Medical Hx - Past Medical History Previous Medical History?: Yes Hx Psychiatric Treatment: Yes (Bipolar,schizophrenia,depression) Hx HIV: Yes - Surgical History Past Surgical History?: Yes Additional Surgical History: x3. surgery for dislocated shoulder - Social History Smoking Status: Current Every Day Smoker Substance Use Type: None - Medications Home Medications: Home Medications Medication Instructions Recorded Confirmed Last Taken Type Magnesium Oxide [Mag-Ox] 400 mg PO QDAY 30 Days #30 tablet 08/17/18 Unknown Rx Potassium Chloride [K-Dur] 20 meq PO QDAY 30 Days #30 tablet 08/17/18 Unknown Rx Quetiapine Fumarate [Seroquel] 100 mg PO HS 30 Days #30 tablet 08/17/18 Unknown Rx Sulfamethoxazole/Trimethoprim 1 each PO QDAY 30 Days #30 tablet 08/17/18 Unknown Rx [Bactrim DS TAB] Bacitracin/Polymyxin B Sulfate 1 applic TP BID #1 oint...g. 11/09/18 Unknown Rx [Bacitracin-Polymyxin Ointment] cephALEXin [Keflex] 500 mg PO Q12HR #10 cap 11/09/18 Unknown Rx Ondansetron [Zofran ODT TAB] 8 mg PO Q8HR #20 tab.rapdis 04/28/19 Unknown Rx Ondansetron [Zofran Odt] 4 mg PO Q8HR PRN #20 tab.rapdis 05/04/19 Unknown Rx Sulfamethoxazole/Trimethoprim 1 each PO BID #14 tablet 05/04/19 Unknown Rx [Bactrim DS TAB] Nitrofurantoin [place]/M-Cryst 100 mg PO Q12HR #14 capsule 05/23/19 Unknown Rx [Macrobid CAP] Nystatin [Nystatin SUSP] 5 ml PO QID 14 Days ml 05/23/19 Unknown Rx Azithromycin [Zithromax Z-MILDRED] 0 mg PO DAILY #6 tab 07/06/19 Unknown Rx Nystatin [Nystatin SUSP] 10 ml PO TID #480 ml 07/06/19 Unknown Rx Sulfamethoxazole/Trimethoprim 1 each PO BID #14 tablet 07/06/19 Unknown Rx [Bactrim DS TAB] Docusate Sodium [Colace] 100 mg PO BID #30 capsule 09/10/19 Unknown Rx diphenhydrAMINE [Benadryl CAP] 25 mg PO Q8HR PRN #30 capsule 09/10/19 Unknown Rx polyethylene glycoL 3350 [Miralax 17 gm PO BID PRN #10 packet 09/10/19 Unknown Rx 3350] Ibuprofen [Motrin 800 MG tab] 800 mg PO Q8HR #30 tablet 12/31/19 Unknown Rx Sulfamethoxazole/Trimethoprim 1 each PO Q12H #20 tablet 12/31/19 Unknown Rx [Bactrim DS TAB] ED Physical Exam - General Limitations: No Limitations General appearance: alert, in no apparent distress - Head Head exam: Present: atraumatic, normocephalic, normal inspection - Eye Eye exam: Present: normal appearance, PERRL, EOMI Pupils: Present: normal accommodation - ENT ENT exam: Present: normal exam, normal orophraynx, mucous membranes moist, TM's normal bilaterally, normal external ear exam - Neck Neck exam: Present: normal inspection, full ROM - Respiratory Respiratory exam: Present: normal lung sounds bilaterally. Absent: respiratory distress, wheezes, rales, rhonchi, stridor, chest wall tenderness, accessory muscle use, decreased breath sounds - Cardiovascular Cardiovascular Exam: Present: regular rate, normal rhythm, normal heart sounds. Absent: systolic murmur, diastolic murmur, rubs, gallop - GI/Abdominal GI/Abdominal exam: Present: soft, normal bowel sounds. Absent: tenderness, guarding, rebound, hyperactive bowel sounds, hypoactive bowel sounds - External exam: Present: erythema (Swelling, erythematous maculopapular nonfluctuant rash on pubic area), swelling, other (Female RN detective supervisor Ms. Hernandez present during the genital exam) - Extremities Exam Extremities exam: Present: normal inspection, full ROM, normal capillary refill - Back Exam Back exam: Present: normal inspection, full ROM. Absent: muscle spasm, paraspinal tenderness - Neurological Exam Neurological exam: Present: alert, oriented X3, CN II-XII intact, normal gait, reflexes normal - Psychiatric Psychiatric exam: Present: normal affect, normal mood - Skin Skin exam: Present: warm, dry, intact, normal color, rash (erythematous swollen tender nonfluctuant rash on pubic area), erythema ED Course Vital Signs 12/30/19 22:41 Temperature 98.0 F Pulse Rate 95 H Respiratory 15 Rate Blood Pressure 101/76 O2 Sat by Pulse 100 Oximetry ED Medical Decision Making - Medical Decision Making This is a 44-year-old -[place] female with a history of HIV, schizophrenia, anxiety and depression and bipolar disorder who presents to the ED with complaint of vaginal pain due to small painful rash above her clitoris and pubic area for the last 2 days. Patient states that the pain is persistent and feels like there is a foreign body in the vagina. In the ED, patient is alert and oriented x3 and is not in distress. Patient was treated in the ED with oral antibiotics and pain medications. Urinalysis is unremarkable. Patient will discharge home on pain medications and oral antibiotics and was advised to follow-up with her primary care physician in 7 to 10 days for reevaluation or return to the ED immediately if symptoms get worse. - Differential Diagnosis folliculitis; cellulitis; abscess Critical care attestation.: If time is entered above; I have spent that time in minutes in the direct care of this critically ill patient, excluding procedure time. ED Disposition Clinical Impression: Acute folliculitis, Cellulitis of pubic region Disposition: DC-01 TO HOME OR SELFCARE Is pt being admited?: No Does the pt Need Aspirin: No Condition: Stable Instructions: Cellulitis (ED), Folliculitis (ED) Additional Instructions: Take medication with food, drink plenty of fluids and follow-up with your primary care physician in 7 to 10 days for reevaluation. Return to the ED immediately if symptoms get worse. Prescriptions: Sulfamethoxazole/Trimethoprim [Bactrim DS TAB] 1 each PO Q12H #20 tablet Ibuprofen [Motrin 800 MG tab] 800 mg PO Q8HR #30 tablet Referrals: [facility] [Provider Group] - 7-10 days Time of Disposition: 04:55 Print Language: THAI
== END 2019-12-31 05:56 | disposition home or self-care (01) ==
LOC: ED 22:12
DX: N76.2 Acute vulvitis (principal); L73.9 Follicular disorder, unspecified; F31.9 Bipolar disorder, unspecified; F17.200 Nicotine dependence, unspecified, uncomplicated; Z21 Asymptomatic human immunodeficiency virus [HIV] infection status; Z98.890 Other specified postprocedural states; Z79.1 Long term (current) use of non-steroidal anti-inflammatories (NSAID); Z79.2 Long term (current) use of antibiotics; Z79.899 Other long term (current) drug therapy
CPT/HCPCS: 81001

== ENCOUNTER 2020-01-15 17:36 | Emergency (ER) | payer MEDICAID ==
[2020-01-15 17:48] VITALS: BP 111/69
== END 2020-01-15 20:23 | disposition left against medical advice (07) ==
LOC: ED 17:36
DX: M79.604 Pain in right leg (principal); Z53.21 Procedure and treatment not carried out due to patient leaving prior to being seen by health care provider

== ENCOUNTER 2020-01-30 12:25 | Emergency (ER) | payer MEDICAID ==
[2020-01-30 14:05] VITALS: BP 110/78
--- NOTE | 2020-01-30 14:27 | Emergency Department Report ---
Blank Doc - Documentation Documentation: Patient is 44 years old female with history of HIV and schizophrenia. Patient presented to the ER after patient was brought by her her friends from her mother house after she was advised to move out. Patient stated that she does not want to see a doctor she just wants some socks. Patient is alert, oriented x3 and able to make a sound decision. There is no indication for involuntary control. Patient decided to leave AGAINST MEDICAL ADVICE and refused all labs and treatm ent.
== END 2020-01-30 14:32 | disposition left against medical advice (07) ==
LOC: ED 12:25
DX: Z00.00 Encounter for general adult medical examination without abnormal findings (principal); Z53.21 Procedure and treatment not carried out due to patient leaving prior to being seen by health care provider

== ENCOUNTER 2020-02-01 15:57 | Emergency (ER) | payer MEDICAID ==
[2020-02-01 18:51] VITALS: BP 126/71
[2020-02-01 21:54] LABS: Basophils % (Auto) 0.1 % (0.0-1.8); Hematocrit 25.7 % (30.3-42.9); Hemoglobin 8.4 gm/dl (10.1-14.3); Lymphocytes # (Auto) 1.1 K/mm3 (1.2-5.4); Lymphocytes % (Auto) 28.2 % (13.4-35.0); Mean Corpuscular HGB Conc 33 % (30-34); Mean Corpuscular Volume 89 fl (79-97); Monocytes # (Auto) 0.4 K/mm3 (0.0-0.8); Monocytes % (Auto) 10.4 % (0.0-7.3); Platelet Count 155 K/mm3 (140-440); Red Cell Distribution Width 17.2 % (13.2-15.2)
[2020-02-01 22:08] LABS: Alanine Aminotransferase 29 units/L (7-56); Albumin 3.4 g/dL (3.9-5); Blood Urea Nitrogen 14 mg/dL (7-17); Calcium 8.6 mg/dL (8.4-10.2); Hemolysis Index 3
[2020-02-01 22:19] LABS: BUN/Creatinine Ratio 23
--- NOTE | 2020-02-02 00:59 | Emergency Department Report ---
ED General Adult HPI - General Chief complaint: Extremity Problem,Nontraumatic Stated complaint: LEG PAIN Time Seen by Provider: 02/01/20 18:46 Source: patient Mode of arrival: Stretcher Limitations: No Limitations - History of Present Illness Initial comments: Patient presents emergency department via EMS. Per EMS the patient was up [facility] when she told her she was no longer able to walk so she sat on the floor. Upon her arrival to the ED the patient has no complaints. Patient is moving all extremities without any issues. Patient states she is homeless and also hungry. Patient complains of leg cramping. -: Sudden Severity scale (0 -10): 0 Consistency: now resolved Improves with: none Worsens with: none Associated Symptoms: denies other symptoms Treatments Prior to Arrival: none - Related Data Previous Rx's Medication Instructions Recorded Last Taken Type Magnesium Oxide [Mag-Ox] 400 mg PO QDAY 30 Days #30 tablet 08/17/18 Unknown Rx Potassium Chloride [K-Dur] 20 meq PO QDAY 30 Days #30 tablet 08/17/18 Unknown Rx Quetiapine Fumarate [Seroquel] 100 mg PO HS 30 Days #30 tablet 08/17/18 Unknown Rx Sulfamethoxazole/Trimethoprim 1 each PO QDAY 30 Days #30 tablet 08/17/18 Unknown Rx [Bactrim DS TAB] Bacitracin/Polymyxin B Sulfate 1 applic TP BID #1 oint...g. 11/09/18 Unknown Rx [Bacitracin-Polymyxin Ointment] cephALEXin [Keflex] 500 mg PO Q12HR #10 cap 11/09/18 Unknown Rx Ondansetron [Zofran ODT TAB] 8 mg PO Q8HR #20 tab.rapdis 04/28/19 Unknown Rx Sulfamethoxazole/Trimethoprim 1 each PO BID #14 tablet 05/04/19 Unknown Rx [Bactrim DS TAB] Nitrofurantoin [place]/M-Cryst 100 mg PO Q12HR #14 capsule 05/23/19 Unknown Rx [Macrobid CAP] Nystatin [Nystatin SUSP] 5 ml PO QID 14 Days ml 05/23/19 Unknown Rx Azithromycin [Zithromax Z-MILDRED] 0 mg PO DAILY #6 tab 07/06/19 Unknown Rx Nystatin [Nystatin SUSP] 10 ml PO TID #480 ml 07/06/19 Unknown Rx Sulfamethoxazole/Trimethoprim 1 each PO BID #14 tablet 07/06/19 Unknown Rx [Bactrim DS TAB] Docusate Sodium [Colace] 100 mg PO BID #30 capsule 09/10/19 Unknown Rx diphenhydrAMINE [Benadryl CAP] 25 mg PO Q8HR PRN #30 capsule 09/10/19 Unknown Rx polyethylene glycoL 3350 [Miralax 17 gm PO BID PRN #10 packet 09/10/19 Unknown Rx 3350] Ibuprofen [Motrin 800 MG tab] 800 mg PO Q8HR #30 tablet 12/31/19 Unknown Rx Sulfamethoxazole/Trimethoprim 1 each PO Q12H #20 tablet 12/31/19 Unknown Rx [Bactrim DS TAB] Dicyclomine [Bentyl] 20 mg PO Q6H PRN #24 tablet 01/01/20 Unknown Rx Famotidine [Pepcid] 20 mg PO BID #60 tablet 01/01/20 Unknown Rx Ondansetron [Zofran ODT TAB] 4 mg PO Q8HR PRN #20 tab.rapdis 01/01/20 Unknown Rx Allergies Allergy/AdvReac Type Severity Reaction Status Date / Time No Known Allergies Allergy Verified 01/15/20 17:39 ED Review of Systems ROS: Stated complaint: LEG PAIN Other details as noted in HPI Comment: All other systems reviewed and negative Constitutional: denies: chills, fever Eyes: denies: eye pain, eye discharge, vision change ENT: denies: ear pain, throat pain Respiratory: denies: cough, shortness of breath, wheezing Cardiovascular: denies: chest pain, palpitations Endocrine: no symptoms reported Gastrointestinal: denies: abdominal pain, nausea, diarrhea Genitourinary: denies: urgency, dysuria, discharge Musculoskeletal: denies: back pain, joint swelling, arthralgia Skin: denies: rash, lesions Neurological: denies: headache, weakness, paresthesias Psychiatric: denies: anxiety, depression Hematological/Lymphatic: denies: easy bleeding, easy bruising ED Past Medical Hx - Past Medical History Previous Medical History?: Yes Hx Psychiatric Treatment: Yes (Bipolar,schizophrenia,depression) Hx HIV: Yes - Surgical History Additional Surgical History: x3. surgery for dislocated shoulder - Social History Smoking Status: Current Every Day Smoker Substance Use Type: Cocaine, Other - Medications Home Medications: Home Medications Medication Instructions Recorded Confirmed Last Taken Type Magnesium Oxide [Mag-Ox] 400 mg PO QDAY 30 Days #30 tablet 08/17/18 Unknown Rx Potassium Chloride [K-Dur] 20 meq PO QDAY 30 Days #30 tablet 08/17/18 Unknown Rx Quetiapine Fumarate [Seroquel] 100 mg PO HS 30 Days #30 tablet 08/17/18 Unknown Rx Sulfamethoxazole/Trimethoprim 1 each PO QDAY 30 Days #30 tablet 08/17/18 Unknown Rx [Bactrim DS TAB] Bacitracin/Polymyxin B Sulfate 1 applic TP BID #1 oint...g. 11/09/18 Unknown Rx [Bacitracin-Polymyxin Ointment] cephALEXin [Keflex] 500 mg PO Q12HR #10 cap 11/09/18 Unknown Rx Ondansetron [Zofran ODT TAB] 8 mg PO Q8HR #20 tab.rapdis 04/28/19 Unknown Rx Sulfamethoxazole/Trimethoprim 1 each PO BID #14 tablet 05/04/19 Unknown Rx [Bactrim DS TAB] Nitrofurantoin Wayne/M-Cryst 100 mg PO Q12HR #14 capsule 05/23/19 Unknown Rx [Macrobid CAP] Nystatin [Nystatin SUSP] 5 ml PO QID 14 Days ml 05/23/19 Unknown Rx Azithromycin [Zithromax Z-MILDRED] 0 mg PO DAILY #6 tab 07/06/19 Unknown Rx Nystatin [Nystatin SUSP] 10 ml PO TID #480 ml 07/06/19 Unknown Rx Sulfamethoxazole/Trimethoprim 1 each PO BID #14 tablet 07/06/19 Unknown Rx [Bactrim DS TAB] Docusate Sodium [Colace] 100 mg PO BID #30 capsule 09/10/19 Unknown Rx diphenhydrAMINE [Benadryl CAP] 25 mg PO Q8HR PRN #30 capsule 09/10/19 Unknown Rx polyethylene glycoL 3350 [Miralax 17 gm PO BID PRN #10 packet 09/10/19 Unknown Rx 3350] Ibuprofen [Motrin 800 MG tab] 800 mg PO Q8HR #30 tablet 12/31/19 Unknown Rx Sulfamethoxazole/Trimethoprim 1 each PO Q12H #20 tablet 12/31/19 Unknown Rx [Bactrim DS TAB] Dicyclomine [Bentyl] 20 mg PO Q6H PRN #24 tablet 01/01/20 Unknown Rx Famotidine [Pepcid] 20 mg PO BID #60 tablet 01/01/20 Unknown Rx Ondansetron [Zofran ODT TAB] 4 mg PO Q8HR PRN #20 tab.rapdis 01/01/20 Unknown Rx ED Physical Exam - General Limitations: No Limitations General appearance: alert, in no apparent distress - Head Head exam: Present: atraumatic, normocephalic - Eye Eye exam: Present: normal appearance, PERRL, EOMI - ENT ENT exam: Present: mucous membranes moist - Neck Neck exam: Present: normal inspection - Respiratory Respiratory exam: Present: normal lung sounds bilaterally. Absent: respiratory distress - Cardiovascular Cardiovascular Exam: Present: regular rate, normal rhythm. Absent: systolic murmur, diastolic murmur, rubs, gallop - GI/Abdominal GI/Abdominal exam: Present: soft, normal bowel sounds. Absent: distended, tenderness - Extremities Exam Extremities exam: Present: normal inspection - Back Exam Back exam: Present: normal inspection - Neurological Exam Neurological exam: Present: alert, oriented X3, CN II-XII intact. Absent: motor sensory deficit - Psychiatric Psychiatric exam: Present: normal affect, normal mood - Skin Skin exam: Present: warm, dry, intact, normal color. Absent: rash ED Course Vital Signs 02/01/20 02/01/20 18:16 18:51 Temperature 98.0 F Pulse Rate 99 H Respiratory 21 20 Rate Blood Pressure 126/71 [Right] O2 Sat by Pulse 97 Oximetry ED Medical Decision Making - Lab Data Result diagrams: 02/01/20 21:16 02/01/20 21:16 Lab Results 02/01/20 02/01/20 Range/Units 21:16 21:16 WBC 3.8 L (4.5-11.0) K/mm3 RBC 2.90 L (3.65-5.03) M/mm3 Hgb 8.4 L (10.1-14.3) gm/dl Hct 25.7 L (30.3-42.9) % MCV 89 (79-97) fl MCH 29 (28-32) pg MCHC 33 (30-34) % RDW 17.2 H (13.2-15.2) % Plt Count 155 (140-440) K/mm3 Lymph % (Auto) 28.2 (13.4-35.0) % Wayne % (Auto) 10.4 H (0.0-7.3) % Eos % (Auto) 0.0 (0.0-4.3) % Baso % (Auto) 0.1 (0.0-1.8) % Lymph # (Auto) 1.1 L (1.2-5.4) K/mm3 Wayne # (Auto) 0.4 (0.0-0.8) K/mm3 Eos # (Auto) 0.0 (0.0-0.4) K/mm3 Baso # (Auto) 0.0 (0.0-0.1) K/mm3 Seg Neutrophils % 61.3 (40.0-70.0) % Seg Neutrophils # 2.3 (1.8-7.7) K/mm3 Sodium 144 (137-145) mmol/L Potassium 3.6 (3.6-5.0) mmol/L Chloride 106.7 (98-107) mmol/L Carbon Dioxide 23 (22-30) mmol/L Anion Gap 18 mmol/L BUN 14 (7-17) mg/dL Creatinine 0.6 (0.6-1.2) mg/dL Estimated GFR > 60 ml/min BUN/Creatinine Ratio 23 % Glucose 89 (65-100) mg/dL Calcium 8.6 (8.4-10.2) mg/dL Total Bilirubin 0.30 (0.1-1.2) mg/dL AST 70 H (5-40) units/L ALT 29 (7-56) units/L Alkaline Phosphatase 122 (35-129) units/L Total Protein 6.8 (6.3-8.2) g/dL Albumin 3.4 L (3.9-5) g/dL Albumin/Globulin Ratio 1.0 % Critical care attestation.: If time is entered above; I have spent that time in minutes in the direct care of this critically ill patient, excluding procedure time. ED Disposition Clinical Impression: Muscle spasms of both lower extremities Disposition: TO HOME OR SELFCARE Is pt being admited?: No Does the pt Need Aspirin: No Condition: Stable Instructions: Muscle Spasm (ED) Additional Instructions: return if worse Referrals: [facility],MD [Primary Care Provider] - 3-5 Days [facility] [Provider Group] - 3-5 Days [facility] [Provider Group] - 3-5 Days Time of Disposition: 00:58
== END 2020-02-02 01:06 | disposition home or self-care (01) ==
LOC: ED 15:57
DX: M62.838 Other muscle spasm (principal); F31.9 Bipolar disorder, unspecified; F20.89 Other schizophrenia; F17.200 Nicotine dependence, unspecified, uncomplicated; F14.10 Cocaine abuse, uncomplicated; Z79.899 Other long term (current) drug therapy; Z98.890 Other specified postprocedural states
CPT/HCPCS: 36415; 80053; 85025; 99283

== ENCOUNTER 2020-02-02 20:24 | Emergency (ER) | payer MEDICAID ==
[2020-02-02 20:45] VITALS: BP 104/76
--- NOTE | 2020-02-03 10:20 | Emergency Department Report ---
ED General Adult HPI - General Chief complaint: Medical Clearance Stated complaint: LEG PAIN Time Seen by Provider: 02/03/20 07:25 Source: patient Mode of arrival: Ambulatory Limitations: No Limitations - History of Present Illness Initial comments: 44-year-old homeless female presents to the emergency room complaining of chronic pain to her legs all day in her feet. Patient states her pain is a 6 out of 10. She does report having 2 episodes of diarrhea today. [facility] requesting a ride. Patient denies any nausea no vomiting some mild abdominal cramping with diarrhea. She denies any recent falls. Denies any suicidal homicidal ideation. -: This morning Location: abdomen, lower extremity Severity scale (0 -10): 6 Quality: aching Consistency: constant (Abdominal pain leg and feet), intermittent Associated Symptoms: denies: chest pain, cough, fever/chills, loss of appetite, nausea/vomiting, shortness of breath, weakness Treatments Prior to Arrival: none - Related Data Previous Rx's Medication Instructions Recorded Last Taken Type Magnesium Oxide [Mag-Ox] 400 mg PO QDAY 30 Days #30 tablet 08/17/18 Unknown Rx Potassium Chloride [K-Dur] 20 meq PO QDAY 30 Days #30 tablet 08/17/18 Unknown Rx Quetiapine Fumarate [Seroquel] 100 mg PO HS 30 Days #30 tablet 08/17/18 Unknown Rx Sulfamethoxazole/Trimethoprim 1 each PO QDAY 30 Days #30 tablet 08/17/18 Unknown Rx [Bactrim DS TAB] Bacitracin/Polymyxin B Sulfate 1 applic TP BID #1 oint...g. 11/09/18 Unknown Rx [Bacitracin-Polymyxin Ointment] cephALEXin [Keflex] 500 mg PO Q12HR #10 cap 11/09/18 Unknown Rx Ondansetron [Zofran ODT TAB] 8 mg PO Q8HR #20 tab.rapdis 04/28/19 Unknown Rx Sulfamethoxazole/Trimethoprim 1 each PO BID #14 tablet 05/04/19 Unknown Rx [Bactrim DS TAB] Nitrofurantoin Barrow/M-Cryst 100 mg PO Q12HR #14 capsule 05/23/19 Unknown Rx [Macrobid CAP] Nystatin [Nystatin SUSP] 5 ml PO QID 14 Days ml 05/23/19 Unknown Rx Azithromycin [Zithromax Z-MILDRED] 0 mg PO DAILY #6 tab 07/06/19 Unknown Rx Nystatin [Nystatin SUSP] 10 ml PO TID #480 ml 07/06/19 Unknown Rx Sulfamethoxazole/Trimethoprim 1 each PO BID #14 tablet 07/06/19 Unknown Rx [Bactrim DS TAB] Docusate Sodium [Colace] 100 mg PO BID #30 capsule 09/10/19 Unknown Rx diphenhydrAMINE [Benadryl CAP] 25 mg PO Q8HR PRN #30 capsule 09/10/19 Unknown Rx polyethylene glycoL 3350 [Miralax 17 gm PO BID PRN #10 packet 09/10/19 Unknown Rx 3350] Ibuprofen [Motrin 800 MG tab] 800 mg PO Q8HR #30 tablet 12/31/19 Unknown Rx Sulfamethoxazole/Trimethoprim 1 each PO Q12H #20 tablet 12/31/19 Unknown Rx [Bactrim DS TAB] Dicyclomine [Bentyl] 20 mg PO Q6H PRN #24 tablet 01/01/20 Unknown Rx Famotidine [Pepcid] 20 mg PO BID #60 tablet 01/01/20 Unknown Rx Ondansetron [Zofran ODT TAB] 4 mg PO Q8HR PRN #20 tab.rapdis 01/01/20 Unknown Rx Allergies Allergy/AdvReac Type Severity Reaction Status Date / Time No Known Allergies Allergy Verified 01/15/20 17:39 ED Review of Systems ROS: Stated complaint: LEG PAIN Other details as noted in HPI Comment: All other systems reviewed and negative ED Past Medical Hx - Past Medical History Previous Medical History?: Yes Hx Psychiatric Treatment: Yes (Bipolar,schizophrenia,depression) Hx HIV: Yes - Surgical History Past Surgical History?: Yes Additional Surgical History: x3. surgery for dislocated shoulder - Social History Smoking Status: Never Smoker Substance Use Type: Cocaine - Medications Home Medications: Home Medications Medication Instructions Recorded Confirmed Last Taken Type Magnesium Oxide [Mag-Ox] 400 mg PO QDAY 30 Days #30 tablet 08/17/18 Unknown Rx Potassium Chloride [K-Dur] 20 meq PO QDAY 30 Days #30 tablet 08/17/18 Unknown Rx Quetiapine Fumarate [Seroquel] 100 mg PO HS 30 Days #30 tablet 08/17/18 Unknown Rx Sulfamethoxazole/Trimethoprim 1 each PO QDAY 30 Days #30 tablet 08/17/18 Unknown Rx [Bactrim DS TAB] Bacitracin/Polymyxin B Sulfate 1 applic TP BID #1 oint...g. 11/09/18 Unknown Rx [Bacitracin-Polymyxin Ointment] cephALEXin [Keflex] 500 mg PO Q12HR #10 cap 11/09/18 Unknown Rx Ondansetron [Zofran ODT TAB] 8 mg PO Q8HR #20 tab.rapdis 04/28/19 Unknown Rx Sulfamethoxazole/Trimethoprim 1 each PO BID #14 tablet 05/04/19 Unknown Rx [Bactrim DS TAB] Nitrofurantoin Barrow/M-Cryst 100 mg PO Q12HR #14 capsule 05/23/19 Unknown Rx [Macrobid CAP] Nystatin [Nystatin SUSP] 5 ml PO QID 14 Days ml 05/23/19 Unknown Rx Azithromycin [Zithromax Z-MILDRED] 0 mg PO DAILY #6 tab 07/06/19 Unknown Rx Nystatin [Nystatin SUSP] 10 ml PO TID #480 ml 07/06/19 Unknown Rx Sulfamethoxazole/Trimethoprim 1 each PO BID #14 tablet 07/06/19 Unknown Rx [Bactrim DS TAB] Docusate Sodium [Colace] 100 mg PO BID #30 capsule 09/10/19 Unknown Rx diphenhydrAMINE [Benadryl CAP] 25 mg PO Q8HR PRN #30 capsule 09/10/19 Unknown Rx polyethylene glycoL 3350 [Miralax 17 gm PO BID PRN #10 packet 09/10/19 Unknown Rx 3350] Ibuprofen [Motrin 800 MG tab] 800 mg PO Q8HR #30 tablet 12/31/19 Unknown Rx Sulfamethoxazole/Trimethoprim 1 each PO Q12H #20 tablet 12/31/19 Unknown Rx [Bactrim DS TAB] Dicyclomine [Bentyl] 20 mg PO Q6H PRN #24 tablet 01/01/20 Unknown Rx Famotidine [Pepcid] 20 mg PO BID #60 tablet 01/01/20 Unknown Rx Ondansetron [Zofran ODT TAB] 4 mg PO Q8HR PRN #20 tab.rapdis 01/01/20 Unknown Rx ED Physical Exam - General Limitations: No Limitations General appearance: alert, in no apparent distress, cachectic, other (Disheveled) - Head Head exam: Present: atraumatic, normocephalic - Eye Eye exam: Present: normal appearance - ENT ENT exam: Present: mucous membranes moist - Neck Neck exam: Present: normal inspection - Respiratory Respiratory exam: Present: normal lung sounds bilaterally. Absent: respiratory distress - Cardiovascular Cardiovascular Exam: Present: tachycardia - GI/Abdominal GI/Abdominal exam: Present: soft, normal bowel sounds - Extremities Exam Extremities exam: Present: normal inspection, full ROM - Back Exam Back exam: Present: normal inspection - Neurological Exam Neurological exam: Present: alert, oriented X3, normal gait - Psychiatric Psychiatric exam: Present: normal affect, normal mood - Skin Skin exam: Present: warm, dry, intact, normal color. Absent: rash ED Course Vital Signs 02/02/20 20:38 Temperature 99.2 F Pulse Rate 117 H Respiratory 16 Rate Blood Pressure 104/76 O2 Sat by Pulse 100 Oximetry ED Medical Decision Making - Medical Decision Making 44-year-old homeless female presents to the emergency room complaining of chronic pain to her legs all day in her feet. Patient states her pain is a 6 out of 10. She does report having 2 episodes of diarrhea today. She is trying to get to the [facility] stay skilled nursing there is requesting a ride. Patient denies any nausea no vomiting some mild abdominal cramping with diarrhea. She denies any recent falls. Denies any suicidal homicidal ideation. Patient is given Imodium 2 mg p.o. Clean set of close. Discussed with nursing staff for a ride to the [facility] day skilled nursing. Critical care attestation.: If time is entered above; I have spent that time in minutes in the direct care of this critically ill patient, excluding procedure time. ED Disposition Clinical Impression: Chronic leg pain, Acute diarrhea, Homeless single person Disposition: DC-01 TO HOME OR SELFCARE Is pt being admited?: No Does the pt Need Aspirin: No Condition: Stable Instructions: Arthralgia (ED), Acute Diarrhea (ED) Additional Instructions: Try taking [id number] Imodium no more than 4 pills a day. Follow-up with your primary care provider. Tylenol or ibuprofen Profen for pain management. Referrals: PRIMARY CARE, [Primary Care Provider] - 3-5 Days [facility] [Provider Group] - 3-5 Days
[2020-02-03] MEDS ORDERED: LOPERAMIDE 2 MG CAP PO ONE (10:21)
== END 2020-02-03 10:50 | disposition home or self-care (01) ==
LOC: ED 20:24
DX: M79.604 Pain in right leg (principal); M79.605 Pain in left leg; R19.7 Diarrhea, unspecified; G89.29 Other chronic pain; Z59.0 Homelessness; F25.0 Schizoaffective disorder, bipolar type; Z21 Asymptomatic human immunodeficiency virus [HIV] infection status; Z98.890 Other specified postprocedural states; Z79.899 Other long term (current) drug therapy
CPT/HCPCS: 99283; U0003

== ENCOUNTER 2020-03-18 21:30 | Emergency (ER) | payer MEDICAID ==
[2020-03-18] MEDS ORDERED: ASPIRIN 325 MG TAB PO ONE (22:06)
[2020-03-18 22:58] LABS: Basophils % (Auto) 0.6 % (0.0-1.8); Hematocrit 33.8 % (30.3-42.9); Hemoglobin 10.8 gm/dl (10.1-14.3); Lymphocytes # (Auto) 0.7 K/mm3 (1.2-5.4); Lymphocytes % (Auto) 28.2 % (13.4-35.0); Mean Corpuscular HGB Conc 32 % (30-34); Mean Corpuscular Volume 90 fl (79-97); Monocytes # (Auto) 0.2 K/mm3 (0.0-0.8); Monocytes % (Auto) 7.8 % (0.0-7.3); Red Blood Count 3.74 M/mm3 (3.65-5.03); Red Cell Distribution Width 15.6 % (13.2-15.2)
--- NOTE | 2020-03-18 23:01 | XRay Report ---
CHEST 1 VIEW INDICATION: Chest Pain. COMPARISON: 05/23/2019 FINDINGS: Support devices: None. Heart: Normal. Lungs/Pleura: No acute pulmonary or pleural findings. IMPRESSION: 1. No acute findings. Signer Name: Star Felder MD Signed: 03/18/2020 10:56 PM Workstation Name: [id number]
[2020-03-18 23:19] LABS: Blood Urea Nitrogen 15 mg/dL (7-17); Hemolysis Index 7
[2020-03-18 23:28] LABS: BUN/Creatinine Ratio 25
[2020-03-18 23:35] LABS: Platelet Count 98 K/mm3 (140-440)
--- NOTE | 2020-03-19 03:16 | Emergency Department Report ---
ED Chest Pain HPI - General Chief Complaint: Chest Pain Stated Complaint: PAIN PUI?: No Time Seen by Provider: 03/18/20 23:11 Source: patient Mode of arrival: Wheelchair Limitations: No Limitations - History of Present Illness Initial Comments: 44-year-old F Erit[place] female to emerge department complaining of a 6-month history of chest pain off and on of an unknown etiology with no associated presyncope, hemoptysis no hematemesis no hematochezia no nausea, no vomiting no blurred vision. She also requests psychiatric injection for her bipolar schizophrenia. She has been seen at [facility] reportedly 2-3 times this week for 6 for similar symptoms but did not fill the medication she had present to treat the issue. Pain Location: left chest Pain Radiation: none Severity: mild Consistency: constant Improves With: nothing - Related Data Previous Rx's Medication Instructions Recorded Last Taken Type Magnesium Oxide [Mag-Ox] 400 mg PO QDAY 30 Days #30 tablet 08/17/18 Unknown Rx Potassium Chloride [K-Dur] 20 meq PO QDAY 30 Days #30 tablet 08/17/18 Unknown Rx Quetiapine Fumarate [Seroquel] 100 mg PO HS 30 Days #30 tablet 08/17/18 Unknown Rx Sulfamethoxazole/Trimethoprim 1 each PO QDAY 30 Days #30 tablet 08/17/18 Unknown Rx [Bactrim DS TAB] Bacitracin/Polymyxin B Sulfate 1 applic TP BID #1 oint...g. 11/09/18 Unknown Rx [Bacitracin-Polymyxin Ointment] cephALEXin [Keflex] 500 mg PO Q12HR #10 cap 11/09/18 Unknown Rx Ondansetron [Zofran ODT TAB] 8 mg PO Q8HR #20 tab.rapdis 04/28/19 Unknown Rx Sulfamethoxazole/Trimethoprim 1 each PO BID #14 tablet 05/04/19 Unknown Rx [Bactrim DS TAB] Nitrofurantoin Alexander/M-Cryst 100 mg PO Q12HR #14 capsule 05/23/19 Unknown Rx [Macrobid CAP] Nystatin [Nystatin SUSP] 5 ml PO QID 14 Days ml 05/23/19 Unknown Rx Azithromycin [Zithromax Z-MILDRED] 0 mg PO DAILY #6 tab 07/06/19 Unknown Rx Nystatin [Nystatin SUSP] 10 ml PO TID #480 ml 07/06/19 Unknown Rx Sulfamethoxazole/Trimethoprim 1 each PO BID #14 tablet 07/06/19 Unknown Rx [Bactrim DS TAB] Docusate Sodium [Colace] 100 mg PO BID #30 capsule 09/10/19 Unknown Rx diphenhydrAMINE [Benadryl CAP] 25 mg PO Q8HR PRN #30 capsule 09/10/19 Unknown Rx polyethylene glycoL 3350 [Miralax 17 gm PO BID PRN #10 packet 09/10/19 Unknown Rx 3350] Ibuprofen [Motrin 800 MG tab] 800 mg PO Q8HR #30 tablet 12/31/19 Unknown Rx Sulfamethoxazole/Trimethoprim 1 each PO Q12H #20 tablet 12/31/19 Unknown Rx [Bactrim DS TAB] Dicyclomine [Bentyl] 20 mg PO Q6H PRN #24 tablet 01/01/20 Unknown Rx Famotidine [Pepcid] 20 mg PO BID #60 tablet 01/01/20 Unknown Rx Ondansetron [Zofran ODT TAB] 4 mg PO Q8HR PRN #20 tab.rapdis 01/01/20 Unknown Rx Allergies Allergy/AdvReac Type Severity Reaction Status Date / Time No Known Allergies Allergy Verified 01/15/20 17:39 Heart Score - HEART Score History: Slightly suspicious EKG: Normal Age: < 45 Risk factors: No known risk factors Troponin: < normal limit HEART Score: 0 ED Review of Systems ROS: Stated complaint: PAIN Other details as noted in HPI Comment: All other systems reviewed and negative ED Past Medical Hx - Past Medical History Previous Medical History?: Yes Hx Psychiatric Treatment: Yes (Bipolar,schizophrenia,depression) Hx HIV: Yes - Surgical History Past Surgical History?: Yes Additional Surgical History: x3. surgery for dislocated shoulder - Social History Smoking Status: Never Smoker Substance Use Type: None - Medications Home Medications: Home Medications Medication Instructions Recorded Confirmed Last Taken Type Magnesium Oxide [Mag-Ox] 400 mg PO QDAY 30 Days #30 tablet 08/17/18 Unknown Rx Potassium Chloride [K-Dur] 20 meq PO QDAY 30 Days #30 tablet 08/17/18 Unknown Rx Quetiapine Fumarate [Seroquel] 100 mg PO HS 30 Days #30 tablet 08/17/18 Unknown Rx Sulfamethoxazole/Trimethoprim 1 each PO QDAY 30 Days #30 tablet 08/17/18 Unknown Rx [Bactrim DS TAB] Bacitracin/Polymyxin B Sulfate 1 applic TP BID #1 oint...g. 11/09/18 Unknown Rx [Bacitracin-Polymyxin Ointment] cephALEXin [Keflex] 500 mg PO Q12HR #10 cap 11/09/18 Unknown Rx Ondansetron [Zofran ODT TAB] 8 mg PO Q8HR #20 tab.rapdis 04/28/19 Unknown Rx Sulfamethoxazole/Trimethoprim 1 each PO BID #14 tablet 05/04/19 Unknown Rx [Bactrim DS TAB] Nitrofurantoin Alexander/M-Cryst 100 mg PO Q12HR #14 capsule 05/23/19 Unknown Rx [Macrobid CAP] Nystatin [Nystatin SUSP] 5 ml PO QID 14 Days ml 05/23/19 Unknown Rx Azithromycin [Zithromax Z-MILDRED] 0 mg PO DAILY #6 tab 07/06/19 Unknown Rx Nystatin [Nystatin SUSP] 10 ml PO TID #480 ml 07/06/19 Unknown Rx Sulfamethoxazole/Trimethoprim 1 each PO BID #14 tablet 07/06/19 Unknown Rx [Bactrim DS TAB] Docusate Sodium [Colace] 100 mg PO BID #30 capsule 09/10/19 Unknown Rx diphenhydrAMINE [Benadryl CAP] 25 mg PO Q8HR PRN #30 capsule 09/10/19 Unknown Rx polyethylene glycoL 3350 [Miralax 17 gm PO BID PRN #10 packet 09/10/19 Unknown Rx 3350] Ibuprofen [Motrin 800 MG tab] 800 mg PO Q8HR #30 tablet 12/31/19 Unknown Rx Sulfamethoxazole/Trimethoprim 1 each PO Q12H #20 tablet 12/31/19 Unknown Rx [Bactrim DS TAB] Dicyclomine [Bentyl] 20 mg PO Q6H PRN #24 tablet 01/01/20 Unknown Rx Famotidine [Pepcid] 20 mg PO BID #60 tablet 01/01/20 Unknown Rx Ondansetron [Zofran ODT TAB] 4 mg PO Q8HR PRN #20 tab.rapdis 01/01/20 Unknown Rx ED Physical Exam - General Limitations: No Limitations General appearance: alert, in no apparent distress - Head Head exam: Present: atraumatic, normocephalic - Eye Eye exam: Present: normal appearance, PERRL, EOMI - ENT ENT exam: Present: mucous membranes moist - Neck Neck exam: Present: normal inspection - Respiratory Respiratory exam: Present: normal lung sounds bilaterally. Absent: respiratory distress, wheezes, rales, accessory muscle use, decreased breath sounds - Cardiovascular Cardiovascular Exam: Present: regular rate, normal rhythm. Absent: systolic murmur, diastolic murmur, rubs, gallop - GI/Abdominal GI/Abdominal exam: Present: soft, normal bowel sounds - Extremities Exam Extremities exam: Present: normal inspection - Back Exam Back exam: Present: normal inspection - Neurological Exam Neurological exam: Present: alert, oriented X3 - Psychiatric Psychiatric exam: Present: normal affect, normal mood - Skin Skin exam: Present: warm, dry, intact, normal color. Absent: rash ANGELO score - Angelo Score Age > 65: (0) No Aspirin use within the Past 7 Days: (0) No 3 or more CAD Risk Factors: (0) No 2 or more Angina events in past 24 hrs: (0) No Known CAD with more than 50% Stenosis: (0) No Elevated Cardiac Markers: (0) No ST Deviation Greater than 0.5mm: (0) No ANGELO Score: 0 ED Medical Decision Making - Lab Data Result diagrams: 03/18/20 22:20 03/18/20 22:20 Lab Results 03/18/20 03/18/20 03/19/20 Range/Units 22:20 22:20 00:50 WBC 2.5 L (4.5-11.0) K/mm3 RBC 3.74 (3.65-5.03) M/mm3 Hgb 10.8 (10.1-14.3) gm/dl Hct 33.8 (30.3-42.9) % MCV 90 (79-97) fl MCH 29 (28-32) pg MCHC 32 (30-34) % RDW 15.6 H (13.2-15.2) % Plt Count 98 L (140-440) K/mm3 Lymph % (Auto) 28.2 (13.4-35.0) % Alexander % (Auto) 7.8 H (0.0-7.3) % Eos % (Auto) 0.0 (0.0-4.3) % Baso % (Auto) 0.6 (0.0-1.8) % Lymph # (Auto) 0.7 L (1.2-5.4) K/mm3 Alexander # (Auto) 0.2 (0.0-0.8) K/mm3 Eos # (Auto) 0.0 (0.0-0.4) K/mm3 Baso # (Auto) 0.0 (0.0-0.1) K/mm3 Seg Neutrophils % 63.4 (40.0-70.0) % Seg Neutrophils # 1.6 L (1.8-7.7) K/mm3 Sodium 145 (137-145) mmol/L Potassium 3.4 L (3.6-5.0) mmol/L Chloride 106.8 (98-107) mmol/L Carbon Dioxide 25 (22-30) mmol/L Anion Gap 17 mmol/L BUN 15 (7-17) mg/dL Creatinine 0.6 (0.6-1.2) mg/dL Estimated GFR > 60 ml/min BUN/Creatinine Ratio 25 % Glucose 81 (65-100) mg/dL Calcium 9.0 (8.4-10.2) mg/dL Troponin T < 0.010 < 0.010 (0.00-0.029) ng/mL - EKG Data EKG shows normal: sinus rhythm Rate: normal - EKG Data Interpretation: no acute changes, normal EKG - Radiology Data Radiology results: report reviewed [address] [address] XRay Report Signed Patient: SHARON BROCK MR#: [id number] : 1975 Acct:[id number] Age/Sex: 44 / F ADM Date: 03/18/20 Loc: ED Attending Dr: Ordering Physician: ED MD CLEMENCIA Date of Service: 03/18/20 Procedure(s): XR chest 1V ap Accession Number(s): [id number] cc: ED MD CLEMENCIA Fluoro Time In Minutes: CHEST 1 VIEW INDICATION: Chest Pain. COMPARISON: 05/23/2019 FINDINGS: Support devices: None. Heart: Normal. Lungs/Pleura: No acute pulmonary or pleural findings. IMPRESSION: 1. No acute findings. Signer Name: Star Felder MD Signed: 03/18/2020 10:56 PM Workstation Name: [id number] Transcribed By: TAE Dictated By: Star Felder MD Electronically Authenticated By: Star Felder MD Signed Date/Time: 03/18/202255 DD/ 55 TD/TT: - Medical Decision Making this patient presents with chest pain that is very unlikely angina or acute coronary syndrome. The emergency department evaluation has not identified any cause for suspicion that this chest pain has a cardiac etiology. Based on their history, EKG (which showed no evidence of ischemia or infarction) and imaging, in addition to the patient's physical exam, I see no evidence at this time for a malignant etiology for the patient's chest pain. There is no acute evidence for pulmonary embolus, acute myocardial infarction, pneumothorax, Boerhaeve syndrome, cardiac tamponade, thoracic artery dissection, or any other emergent cardiac, pulmonary or aortic pathology. Given the low pre-test probability for cardiac etiology of chest pain and the absence of any sign of ischemia or infarction, discharge for outpatient follow-up and further evaluation is reasonable. I have explained to the patient that even though a cardiac problem is very unlikely, follow-up and further testing is required to reduce further the already small uncertainty that exists. Other life-threatening diagnoses have been considered. The patient understands the need to return immediately if their symptoms worsen or they develop any new symptoms, and not to engage in any significant exertional activity until follow-up is obtained. Critical care attestation.: If time is entered above; I have spent that time in minutes in the direct care of this critically ill patient, excluding procedure time. ED Disposition Clinical Impression: Chronic chest pain Disposition: - TO HOME OR SELFCARE Is pt being admited?: No Does the pt Need Aspirin: No Condition: Stable Instructions: Chest Pain (ED), Chronic Pain, Adult, Chest Wall Pain, [id number] Additional Instructions: Please fill the prescriptions that you received at [facility] and utilize them as directed and be sure to schedule a follow-up with your primary care doctor as we discussed Referrals: ANITRA BRAND MD [Primary Care Provider] - 3-5 Days CHRISTOPHER DIAZ MD [Staff Physician] - 3-5 Days
[2020-03-19 07:15] VITALS: BP 118/68
== END 2020-03-19 04:23 | disposition home or self-care (01) ==
LOC: ED 21:30
DX: R07.89 Other chest pain (principal); G89.29 Other chronic pain; R55 Syncope and collapse; F31.9 Bipolar disorder, unspecified; F20.9 Schizophrenia, unspecified; Z98.890 Other specified postprocedural states; Z21 Asymptomatic human immunodeficiency virus [HIV] infection status; Z79.1 Long term (current) use of non-steroidal anti-inflammatories (NSAID); Z79.2 Long term (current) use of antibiotics; Z79.899 Other long term (current) drug therapy
CPT/HCPCS: 36415; 71045; 80048; 84484; 85025; 93005